=== PATIENT | male | born 1985 | race Caucasian/White ===

== ENCOUNTER 2017-04-22 13:42 | Emergency (ER) | payer BC, OTHER ==
[2017-04-22 14:07] VITALS: TEMP 98.1
[2017-04-22] MEDS ORDERED: SODIUM CHLORIDE 0.9% 1,000 ML IV STA (14:45)
--- NOTE | 2017-04-22 14:56 | ED ---
General Adult HPI - General Chief complaint: Recheck/Abnormal Lab/Rx Stated complaint: memory loss/slurred speech Time Seen by Provider: 04/22/17 14:16 Source: patient Mode of arrival: wheelchair Limitations: no limitations - History of Present Illness Initial comments: 11 years old male came in here for ongoing problems with headaches with inability to concentrate, been more forgetful and to the point that he has strong cry he noticed that he was getting lost only slightly. He is here CARING FOR 0.8 0.3 WERE DRIVING THAT'S WHY HE STOPPED DRIVING. 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 ALL THE SYMPTOMS STARTED BACK IN APRIL 13 WHEN HIS TRIED TO WAKE HIM UP AND HE WAS AWAKE BUT HE CAN MOVE AND HE COULDN'T TALK AND LASTED FOR ABOUT 5 MINUTES 2 DAYS LATER HE WENT TO SEE HIS FAMILY DOCTOR FAMILY DOCTOR ORDERED SOME INVESTIGATIONS AND CONTINUED NEURO EXAM HE FELL. EXAM WAS NORMAL. 2 MORE VISITS TO PRIMARY CARE PHYSICIANS OVER THE NEXT FEW DAYS UNTIL IMAGING WELL BLOOD WORK. HER SYMPTOMS CONTINUED TO GET WORSE OVER THE COURSE OF THE TIME SINCE APRIL 13. HE IS QUITE HEALTHY. DENIES ANY STREET DRUGS SHE DOESN'T DRINK IS NO TRAUMA TO THE HEAD. He has headache no neck stiffness no chest pain or shortness of breath no abdominal pain no weakness of one arm more than the other no weakness of the right side of his vision is fine at this point but he said his vision has been off-and on been blurry - Related Data Home Medications Medication Instructions Recorded Confirmed PARoxetine [Paxil] 20 mg PO QAM 04/22/17 04/22/17 Allergies Allergy/AdvReac Type Severity Reaction Status Date / Time shellfish derived [Shellfish] Allergy Unknown Verified 04/22/17 15:09 Review of Systems ROS Statement: Those systems with pertinent positive or pertinent negative responses have been documented in the HPI. ROS Other: All systems not noted in ROS Statement are negative. Past Medical History Past Medical History: No Reported History History of Any Multi-Drug Resistant Organisms: None Reported Past Surgical History: No Surgical Hx Reported Past Psychological History: No Psychological Hx Reported Smoking Status: Current every day smoker Past Alcohol Use History: None Reported Past Drug Use History: None Reported General Exam - General Exam Comments Initial Comments: General: The patient is awake and alert, in no distress, and does not appear acutely ill. GCS is 15 Skin: Skin is warm and dry and no rashes or lesions are noted. Eye: Pupils are equal, round and reactive to light, extra-ocular movements are intact; there is normal conjunctiva bilaterally. Ears, nose, mouth and throat: There are moist mucous membranes and no oral lesions. Neck: The neck is supple, there is no tenderness or JVD. Cardiovascular: There is a regular rate and rhythm. No murmur, rub or gallop is appreciated. Respiratory: To auscultation bilateral, no wheezing no rhonchi no distress respiratory peres noticed Gastrointestinal: Soft, non-distended, non-tender abdomen without masses or organomegaly noted. There is no rebound or guarding present. Bowel sounds are unremarkable. Back: There is no tenderness to palpation in the midline. There is no obvious deformity. Musculoskeletal: Normal ROM, no tenderness, There is no pedal edema. There is no calf tenderness or swelling. No cords were appreciated. Neurological: CN II-XII intact, Cranial nerves III through XII are intact. There are no obvious motor or sensory deficits. Coordination appears grossly intact. Speech is normal. Psychiatric: Cooperative, appropriate mood & affect, normal judgment. Limitations: no limitations Course Vital Signs 04/22/17 14:02 Temperature 98.1 F Pulse Rate 74 Respiratory 20 Rate Blood Pressure 123/83 O2 Sat by Pulse 98 Oximetry - Reevaluation(s) Reevaluation #1: 04/22/17 17:11 Amylase was reviewed along with his head CT, didn't we did normal range, and recommended he see Dr. Carlos as outpatient for the further evaluation and management of his headache as well as forgetfulness decreased, have paged Dr. Carlos ambulatory to expedite his appointment with the Dr. Carlos 04/22/17 17:[address] Carlos at 1715 he agreed to see him in his office Medical Decision Making - Lab Data Result diagrams: 04/22/17 15:28 04/22/17 15:28 Lab Results 04/22/17 04/22/17 Range/Units 15:28 15:28 WBC 6.4 (3.8-10.6) k/uL RBC 5.25 (4.30-5.90) m/uL Hgb 16.2 (13.0-17.5) gm/dL Hct 46.0 (39.0-53.0) % MCV 87.5 (80.0-100.0) fL MCH 30.9 (25.0-35.0) pg MCHC 35.3 (31.0-37.0) g/dL RDW 12.1 (11.5-15.5) % Plt Count 157 (150-450) k/uL ESR 2 (0-15) mm/hr Sodium 141 (137-145) mmol/L Potassium 4.3 (3.5-5.1) mmol/L Chloride 106 (98-107) mmol/L Carbon Dioxide 24 (22-30) mmol/L Anion Gap 11 mmol/L BUN 18 (9-20) mg/dL Creatinine 1.00 (0.66-1.25) mg/dL Est GFR (MDRD) Af Amer >60 (>60 ml/min/1.73 sqM) Est GFR (MDRD) Non-Af >60 (>60 ml/min/1.73 sqM) Glucose 86 (74-99) mg/dL Calcium 10.0 (8.4-10.2) mg/dL Total Bilirubin 0.6 (0.2-1.3) mg/dL AST 24 (17-59) U/L ALT 41 (21-72) U/L Alkaline Phosphatase 73 (38-126) U/L C-Reactive Protein 15.3 H (<10.0) mg/L Total Protein 7.0 (6.3-8.2) g/dL Albumin 4.3 (3.5-5.0) g/dL Vitamin B12 486 (239-931) pg/mL Folate 10.70 (>2.75) ng/mL TSH 2.660 (0.465-4.680) mIU/L Disposition Clinical Impression: Headache, Forgetfulness Disposition: HOME SELF-CARE Condition: Fair Instructions: Acute Headache (ED) Referrals: Bennie Chavira MD [Primary Care Provider] - 1-2 days Mercedez Carlos MD [STAFF PHYSICIAN] - 1-2 days
--- NOTE | 2017-04-22 15:18 | CT ---
EXAMINATION TYPE: CT brain wo con DATE OF EXAM: 04/22/2017 COMPARISON: NONE HISTORY: Confusion, memory loss, slurred speech, MIN CT DLP: [address] of the brain was performed. The ventricles, basal cisterns and sulci overlying the cerebral convexities demonstrate a normal appe arance. There is no evidence for intracranial hemorrhage or sulcal effacement. No mass effects are seen. Osseous calvarium is intact. If symptoms persist consider MRI as clinically warranted. IMPRESSION: 1. No acute intracranial process is seen at this time.
[2017-04-22 15:51] LABS: CH 30.1; CHCM 34.5; HDW 2.55; HGB 16.2 gm/dL (13.0-17.5); MCH 30.9 pg (25.0-35.0); MCHC 35.3 g/dL (31.0-37.0); MCV 87.5 fL (80.0-100.0); Mean Platelet Volume 8.8; RBC 5.25 m/uL (4.30-5.90); RDW 12.1 % (11.5-15.5); WBC 6.4 k/uL (3.8-10.6)
[2017-04-22 16:02] LABS: ALT 41 U/L (21-72); AST 24 U/L (17-59); Alkaline Phosphatase 73 U/L (38-126); Anion Gap 11 mmol/L; Blood Urea Nitrogen 18 mg/dL (9-20); C Reactive Protein 15.3 mg/L (<10.0); Carbon Dioxide 24 mmol/L (22-30); Chloride 106 mmol/L (98-107); Glucose 86 mg/dL (74-99); Non-African American GFR(MDRD) >60 (>60 ml/min/1.73 sqM); Potassium 4.3 mmol/L (3.5-5.1); Sodium 141 mmol/L (137-145); Total Bilirubin 0.6 mg/dL (0.2-1.3)
[2017-04-22 16:45] LABS: Erythrocyte Sedimentation Rate 2 mm/hr (0-15)
[2017-04-22 17:04] LABS: Vitamin B12 486 pg/mL (239-931)
[2017-04-22 17:26] VITALS: BP 128/82; PULSE 66; RESP 18
== END 2017-04-22 17:26 | disposition home or self-care (01) ==
LOC: EC 13:42
DX: R51 Headache (principal); R41.3 Other amnesia; R40.2412 Glasgow coma scale score 13-15, at arrival to emergency department; F17.200 Nicotine dependence, unspecified, uncomplicated; Z79.899 Other long term (current) drug therapy; Z88.2 Allergy status to sulfonamides
CPT/HCPCS: 36415; 70450; 80053; 82607; 82746; 84443; 85027; 85652; 86140; 96360; 96361; 99284

== ENCOUNTER 2017-05-14 06:30 | Day surgery (SDC) | payer BC ==
[2017-05-12 09:35] VITALS: BMI 27.1
[~2017-05-14 06:30] MED LIST: DEXAMETHASONE SOD PHOSPHATE 10 MG/ML 1 ML VIAL IV ONE; HEPARIN SODIUM,PORCINE 5,000 UNIT/ML 1 ML VIAL SQ ONE; LACTATED RINGERS 1,000 ML IV SCH; LIDOCAINE 1% 20 ML VIAL (10MG/ML) FOR IV START INTRADERMA PRN; ONDANSETRON 4 MG/2 ML VIAL IVP ONE; SCOPOLAMINE 1.5MG/72HR PATCH TRANSDERM ONE; ceFAZolin 2 GM in SODIUM CHLORIDE 0.9% 100 ML IVPB ONE
[2017-05-14 07:04] LABS: Glucose,Whole Blood 95 mg/dL (75-99)
[2017-05-14] MEDS ORDERED: fentaNYL (PF) 50 MCG/ML 2 ML AMP ONE (07:35)
[2017-05-14] MEDS ORDERED: NEOSTIGMINE 1 MG/ML 10 ML VIAL ONE (07:35)
[2017-05-14] MEDS ORDERED: PROPOFOL 10 MG/ML 20 ML VIAL IV ONE (07:35)
[2017-05-14] MEDS ORDERED: LIDOCAINE 1% INJ 10MG/ML (20 ML MDV) ONE (07:35)
[2017-05-14] MEDS ORDERED: MIDAZOLAM 2 MG/2 ML VIAL ONE (07:35)
[2017-05-14] MEDS ORDERED: ROCURONIUM BROMIDE 10 MG/ML 10 ML VIAL IV ONE (07:35)
[2017-05-14] MEDS ORDERED: SUCCINYLCHOLINE CHLORIDE 100 MG/5 ML SYR IV ONE (07:35)
[2017-05-14] MEDS ORDERED: GLYCOPYRROLATE 0.2 MG/ML 2 ML VIAL ONE (07:35)
[2017-05-14] MEDS ORDERED: BUPIVACAINE (PF) 0.25% 30 ML VIAL SQ ONE (08:13)
--- NOTE | 2017-05-14 09:17 | P.OP ---
Date of Procedure: 05/14/17 Preoperative Diagnosis: Right inguinal hernia Postoperative Diagnosis: Right direct inguinal hernia Procedure(s) Performed: Robot asissted laparoscopic right inguinal hernia repair with mesh Implants: bard progrip 12 x 16 cm mesh Anesthesia: ROBYN Surgeon: Anthony Rao Pathology: none sent Condition: stable Disposition: PACU Indications for Procedure: Operative Findings: Right direct inguinal hernia, no inguinal hernia on the left side Description of Procedure: Informed consent was obtained patient and then The patient was brought to the operating room and placed in supine position. General anesthesia with endotracheal intubation was performed as per anesthesia team. Chlorhexidine was used to prep the skin followed by application of sterile drapes . He was placed in the lithotomy positionA timeout was performed to verify correct patient, correct procedure and correct side. Patient was confirmed to receive perioperative IV antibiotics, subcutaneous heparin 5000 units and bilateral SCDs were placed. The left upper quadrant point was identified and a stab incision was made. Veress needle was introduced and placement was confirmed with the help of the drop test. The abdomen was then insufflated to 15 mmHg. Once that was done 5 mm port was introduced into the left upper quadrant using the Optiview technique after which a 12 mm port was placed in the supraumbilical position and a 8 mm port in the right lower quadrant and then after that the another 8 mm port was placed in the left lower quadrant. The robot was then docked with the central camera port and the 2 side working ports. After introducing the appropriate instruments and camera the median umbilical fold was retracted laterally towards the left side a small incision was made at the junction of the umbilical fold and the peritoneum and carried all the way laterally thus creating a small plane in the preperitoneal space. This did this was further dissected with the help of blunt dissection using gentle stroking maneuvers all the way down to Ham ligament medially and laterally we went inferior exposing the vessels inferiorly. The vas was identified and the direct hernia sac was teased off , there was no indirect inguinal hernia once the peritoneal fold had been created with good view of the myopectineal orifice the 12 x 16 Bard Pro bath tester mesh was taken with the lower part above the level of the peritoneal fold was then unfolded so that it covered all the orifices and covered the Ham's ligament medially once again pain positioned perfectly to seal was applied to the inferior edge of the mesh as well as around the Ham's ligament after which the peritoneal flaps were closed with the help of running oh Vioxx suture. Inadvertent holes made in the peritoneum were closed with 2-0 Vicryl. once that was done procedure was completed all incisions and camera was removed and a laparoscope was introduced and the 12 mm port site was closed with the help of a Raul Mayfield the direct vision after which gas was turned off abdomen was thoroughly desufflated skins was closed with the help of 4-0 Monocryl and Dermabond. The patient was extubated and taken to recovery room in stable condition patient tolerated the procedure well there were no complications Plan - Discharge Summary New Discharge Prescriptions: New HYDROcodone/APAP 5-325MG [Sturgeon 5-325] 1 tab PO Q4HR PRN #10 tab PRN Reason: Pain Ibuprofen [Motrin] 800 mg PO Q8H #30 tab No Action tiZANidine HCL [Zanaflex] 2 mg PO BID PRN PRN Reason: neck tension Nicotine 21Mg/24Hr Patch [Habitrol 21Mg/24Hr Patch] 1 each TRANSDERM DAILY Discharge Medication List Nicotine 21Mg/24Hr Patch [Habitrol 21Mg/24Hr Patch] 1 each TRANSDERM DAILY 05/12 [History] tiZANidine HCL [Zanaflex] 2 mg PO BID PRN 05/12/17 [History] HYDROcodone/APAP 5-325MG [Sturgeon 5-325] 1 tab PO Q4HR PRN #10 tab 05/14/17 [Rx] Ibuprofen [Motrin] 800 mg PO Q8H #30 tab 05/14/17 [Rx] Follow up Appointment(s)/Referral(s): Anthony Rao MD [STAFF PHYSICIAN] - 1 Week Activity/Diet/Wound Care/Special Instructions: Regular diet AMbulate as tolerated Use incentive spirometer as directed No driving on pain medications or when having pain May shower in 24 hours No heavy liftin more than 20 lbs for 6 weeks Discharge Disposition: HOME SELF-CARE
[2017-05-14 09:39] VITALS: TEMP 97.7
[2017-05-14] MEDS ORDERED: KETOROLAC 30 MG/ML 1 ML VIAL IVP ONE (10:05)
[2017-05-14] MEDS: HYDROmorphone 1 MG/ML 1 ML SYRINGE IVP PRN ×2 (10:06→10:13)
[2017-05-14 10:31] VITALS: RESP 16
[2017-05-14] MEDS ORDERED: HYDROcodone/APAP 5-325MG 1 EACH TAB PO ONE (11:51)
[2017-05-14 11:57] VITALS: BP 140/94; PULSE 82
== END 2017-05-14 12:28 | disposition home or self-care (01) ==
LOC: OR 06:30
PROVIDERS: ATTEND Surgery
DX: K40.90 Unilateral inguinal hernia, without obstruction or gangrene, not specified as recurrent (principal); F41.9 Anxiety disorder, unspecified; F17.200 Nicotine dependence, unspecified, uncomplicated; Z79.899 Other long term (current) drug therapy; Z79.1 Long term (current) use of non-steroidal anti-inflammatories (NSAID); Z79.52 Long term (current) use of systemic steroids
CPT/HCPCS: 49650; S2900

== ENCOUNTER 2018-03-31 13:50 | Observation (INO) | payer BC ==
[2018-03-31] MEDS ORDERED: SODIUM CHLORIDE 0.9% 1,000 ML IV STA (14:45)
[2018-03-31] MEDS ORDERED: SODIUM CHLORIDE 0.9% 500 ML IV STA (14:45)
[2018-03-31 14:54] LABS: Basophils % (A) 0 %; Eosinophils # (A) 0.1 k/uL (0-0.7); Eosinophils % (A) 1 %; HCT 50.9 % (39.0-53.0); HGB 16.4 gm/dL (13.0-17.5); Lymphocytes # (A) 1.6 k/uL (1.0-4.8); Lymphocytes % (A) 20 %; MCH 27.6 pg (25.0-35.0); MCHC 32.2 g/dL (31.0-37.0); MCV 85.8 fL (80.0-100.0); Mean Platelet Volume 9.1; Monocytes # (A) 0.4 k/uL (0-1.0); Monocytes % (A) 5 %; Neutrophils % (A) 73 %; Platelet Count 172 k/uL (150-450); RBC 5.93 m/uL (4.30-5.90); WBC 8.2 k/uL (3.8-10.6)
[2018-03-31 15:03] LABS: ALT 45 U/L (21-72); AST 25 U/L (17-59); Albumin 4.3 g/dL (3.5-5.0); Alkaline Phosphatase 70 U/L (38-126); Anion Gap 13 mmol/L; Blood Urea Nitrogen 19 mg/dL (9-20); Calcium 9.8 mg/dL (8.4-10.2); Carbon Dioxide 24 mmol/L (22-30); Chloride 104 mmol/L (98-107); Glucose 112 mg/dL (74-99); Potassium 3.8 mmol/L (3.5-5.1); Sodium 141 mmol/L (137-145); Total Bilirubin 0.8 mg/dL (0.2-1.3); Total Protein 7.1 g/dL (6.3-8.2)
[2018-03-31 15:05] LABS: INR 1.1 (<1.2); Partial Thromboplastin Time 24.5 sec (22.0-30.0); Prothrombin Time 10.3 sec (9.0-12.0)
--- NOTE | 2018-03-31 15:06 | ED ---
General Adult HPI - General Chief complaint: Eye Problems Stated complaint: Vision issues sent by ME and Ophth. Time Seen by Provider: 03/31/18 14:27 Source: patient, RN notes reviewed, old records reviewed Mode of arrival: ambulatory Limitations: no limitations - History of Present Illness Initial comments: This is a 32-year-old male to the ER for evaluation today. Patient comes in ER with right peripheral vision loss, left sided headache, occasional headache and neck pain, patient has no significant medical history does not smoke or drink. No trauma no travel history. No sick contacts. Patient denies any recent fevers. Patient has no prior history of similar symptoms. He does have a remote history of some weakness on his left side of his neck and into his arms. That all resolved. Patient states on his history and has had a prior echocardiogram which noted that he had a defect his heart is all unsure and had no follow-up regarding those findings. - Related Data Home Medications Medication Instructions Recorded Confirmed Ibuprofen [Advil] 600 mg PO ONCE 03/31/18 03/31/18 Allergies Allergy/AdvReac Type Severity Reaction Status Date / Time shellfish derived [Shellfish] Allergy Nausea & Verified 03/31/18 14:18 Vomiting Review of Systems ROS Statement: Those systems with pertinent positive or pertinent negative responses have been documented in the HPI. ROS Other: All systems not noted in ROS Statement are negative. Past Medical History Past Medical History: No Reported History Additional Past Medical History / Comment(s): rt inguinal hernia,states "small hole found in my heart on an echocardiogram and being monitored every 6 mos", hypoglycemia History of Any Multi-Drug Resistant Organisms: None Reported Past Surgical History: Hernia Repair Additional Past Surgical History / Comment(s): rt inguinal hernia repair,lt testes descended Past Anesthesia/Blood Transfusion Reactions: No Reported Reaction Additional Past Anesthesia/Blood Transfusion Reaction / Comment(s): no hx blood transfusion Past Psychological History: Anxiety Smoking Status: Former smoker Past Alcohol Use History: None Reported Past Drug Use History: None Reported - Past Family History Mother Family Medical History: CVA/TIA Father Family Medical History: CVA/TIA General Exam Limitations: no limitations General appearance: alert, in no apparent distress Head exam: Present: atraumatic, normocephalic, normal inspection Eye exam: Present: normal appearance, PERRL, EOMI. Absent: scleral icterus, conjunctival injection, periorbital swelling ENT exam: Present: normal exam, mucous membranes moist Neck exam: Present: normal inspection. Absent: tenderness, meningismus, lymphadenopathy Respiratory exam: Present: normal lung sounds bilaterally. Absent: respiratory distress, wheezes, rales, rhonchi, stridor Cardiovascular Exam: Present: regular rate, normal rhythm, normal heart sounds. Absent: systolic murmur, diastolic murmur, rubs, gallop, clicks GI/Abdominal exam: Present: soft, normal bowel sounds. Absent: distended, tenderness, guarding, rebound, rigid Extremities exam: Present: normal inspection, full ROM, normal capillary refill. Absent: tenderness, pedal edema, joint swelling, calf tenderness Back exam: Present: normal inspection Neurological exam: Present: alert, oriented X3, CN II-XII intact Psychiatric exam: Present: normal affect, normal mood Skin exam: Present: warm, dry, intact, normal color. Absent: rash Course Vital Signs 03/31/18 03/31/18 03/31/18 14:01 15:43 16:48 Temperature 97.9 F Pulse Rate 71 87 74 Respiratory 16 18 16 Rate Blood Pressure 153/92 159/73 142/78 O2 Sat by Pulse 96 97 97 Oximetry - Reevaluation(s) Reevaluation #1: 03/31/18 17:04 Patient remains w peripheral vision loss EKG Findings - EKG Comments: EKG Findings:: EKG shows normal sinus rhythm rate of 67, VA 180, QRS 90, QTc 407 Medical Decision Making - Medical Decision Making 32 male the ER with signs and symptoms of stroke, patient sent in by collections officer after multiple evaluation regarding peripheral visual loss right eye. 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 chart, patient to be admitted for neurological evaluation - Lab Data Result diagrams: 03/31/18 14:40 03/31/18 14:40 Lab Results 03/31/18 03/31/18 03/31/18 Range/Units 14:40 14:40 14:40 WBC 8.2 (3.8-10.6) k/uL RBC 5.93 H (4.30-5.90) m/uL Hgb 16.4 (13.0-17.5) gm/dL Hct 50.9 (39.0-53.0) % MCV 85.8 (80.0-100.0) fL MCH 27.6 (25.0-35.0) pg MCHC 32.2 (31.0-37.0) g/dL RDW 13.0 (11.5-15.5) % Plt Count 172 (150-450) k/uL Neutrophils % 73 % Lymphocytes % 20 % Monocytes % 5 % Eosinophils % 1 % Basophils % 0 % Neutrophils # 6.0 (1.3-7.7) k/uL Lymphocytes # 1.6 (1.0-4.8) k/uL Monocytes # 0.4 (0-1.0) k/uL Eosinophils # 0.1 (0-0.7) k/uL Basophils # 0.0 (0-0.2) k/uL ESR (0-15) mm/hr PT (9.0-12.0) sec INR (<1.2) APTT (22.0-30.0) sec Fibrinogen (200-500) mg/dL Sodium 141 (137-145) mmol/L Potassium 3.8 (3.5-5.1) mmol/L Chloride 104 (98-107) mmol/L Carbon Dioxide 24 (22-30) mmol/L Anion Gap 13 mmol/L BUN 19 (9-20) mg/dL Creatinine 1.07 (0.66-1.25) mg/dL Est GFR (CKD-EPI)AfAm >90 (>60 ml/min/1.73 sqM) Est GFR (CKD-EPI)NonAf >90 (>60 ml/min/1.73 sqM) Glucose 112 H (74-99) mg/dL Calcium 9.8 (8.4-10.2) mg/dL Total Bilirubin 0.8 (0.2-1.3) mg/dL AST 25 (17-59) U/L ALT 45 (21-72) U/L Alkaline Phosphatase 70 (38-126) U/L Total Creatine Kinase 179 H (55-170) U/L CK-MB (CK-2) 2.0 (0.0-2.4) ng/mL CK-MB (CK-2) Rel Index 1.1 Troponin I <0.012 (0.000-0.034) ng/mL C-Reactive Protein (<10.0) mg/L Total Protein 7.1 (6.3-8.2) g/dL Albumin 4.3 (3.5-5.0) g/dL Urine Color Urine Appearance (Clear) Urine pH (5.0-8.0) Ur Specific Cutler (1.001-1.035) Urine Protein (Negative) Urine Glucose (UA) (Negative) Urine Ketones (Negative) Urine Blood (Negative) Urine Nitrite (Negative) Urine Bilirubin (Negative) Urine Urobilinogen (<2.0) mg/dL Ur Leukocyte Esterase (Negative) Urine Opiates Screen (NotDetected) Ur Oxycodone Screen (NotDetected) Urine Methadone Screen (NotDetected) Ur Propoxyphene Screen (NotDetected) Ur Barbiturates Screen (NotDetected) U Tricyclic Antidepress (NotDetected) Ur Phencyclidine Scrn (NotDetected) Ur Amphetamines Screen (NotDetected) U Methamphetamines Scrn (NotDetected) U Benzodiazepines Scrn (NotDetected) Urine Cocaine Screen (NotDetected) U Marijuana (THC) Screen (NotDetected) 03/31/18 03/31/18 03/31/18 Range/Units 14:40 14:40 14:40 WBC (3.8-10.6) k/uL RBC (4.30-5.90) m/uL Hgb (13.0-17.5) gm/dL Hct (39.0-53.0) % MCV (80.0-100.0) fL MCH (25.0-35.0) pg MCHC (31.0-37.0) g/dL RDW (11.5-15.5) % Plt Count (150-450) k/uL Neutrophils % % Lymphocytes % % Monocytes % % Eosinophils % % Basophils % % Neutrophils # (1.3-7.7) k/uL Lymphocytes # (1.0-4.8) k/uL Monocytes # (0-1.0) k/uL Eosinophils # (0-0.7) k/uL Basophils # (0-0.2) k/uL ESR 2 (0-15) mm/hr PT 10.3 (9.0-12.0) sec INR 1.1 (<1.2) APTT 24.5 (22.0-30.0) sec Fibrinogen (200-500) mg/dL Sodium (137-145) mmol/L Potassium (3.5-5.1) mmol/L Chloride (98-107) mmol/L Carbon Dioxide (22-30) mmol/L Anion Gap mmol/L BUN (9-20) mg/dL Creatinine (0.66-1.25) mg/dL Est GFR (CKD-EPI)AfAm (>60 ml/min/1.73 sqM) Est GFR (CKD-EPI)NonAf (>60 ml/min/1.73 sqM) Glucose (74-99) mg/dL Calcium (8.4-10.2) mg/dL Total Bilirubin (0.2-1.3) mg/dL AST (17-59) U/L ALT (21-72) U/L Alkaline Phosphatase (38-126) U/L Total Creatine Kinase (55-170) U/L CK-MB (CK-2) (0.0-2.4) ng/mL CK-MB (CK-2) Rel Index Troponin I (0.000-0.034) ng/mL C-Reactive Protein 5.5 (<10.0) mg/L Total Protein (6.3-8.2) g/dL Albumin (3.5-5.0) g/dL Urine Color Urine Appearance (Clear) Urine pH (5.0-8.0) Ur Specific Cutler (1.001-1.035) Urine Protein (Negative) Urine Glucose (UA) (Negative) Urine Ketones (Negative) Urine Blood (Negative) Urine Nitrite (Negative) Urine Bilirubin (Negative) Urine Urobilinogen (<2.0) mg/dL Ur Leukocyte Esterase (Negative) Urine Opiates Screen (NotDetected) Ur Oxycodone Screen (NotDetected) Urine Methadone Screen (NotDetected) Ur Propoxyphene Screen (NotDetected) Ur Barbiturates Screen (NotDetected) U Tricyclic Antidepress (NotDetected) Ur Phencyclidine Scrn (NotDetected) Ur Amphetamines Screen (NotDetected) U Methamphetamines Scrn (NotDetected) U Benzodiazepines Scrn (NotDetected) Urine Cocaine Screen (NotDetected) U Marijuana (THC) Screen (NotDetected) 03/31/18 03/31/18 Range/Units 14:40 15:02 WBC (3.8-10.6) k/uL RBC (4.30-5.90) m/uL Hgb (13.0-17.5) gm/dL Hct (39.0-53.0) % MCV (80.0-100.0) fL MCH (25.0-35.0) pg MCHC (31.0-37.0) g/dL RDW (11.5-15.5) % Plt Count (150-450) k/uL Neutrophils % % Lymphocytes % % Monocytes % % Eosinophils % % Basophils % % Neutrophils # (1.3-7.7) k/uL Lymphocytes # (1.0-4.8) k/uL Monocytes # (0-1.0) k/uL Eosinophils # (0-0.7) k/uL Basophils # (0-0.2) k/uL ESR (0-15) mm/hr PT (9.0-12.0) sec INR (<1.2) APTT (22.0-30.0) sec Fibrinogen 312 (200-500) mg/dL Sodium (137-145) mmol/L Potassium (3.5-5.1) mmol/L Chloride (98-107) mmol/L Carbon Dioxide (22-30) mmol/L Anion Gap mmol/L BUN (9-20) mg/dL Creatinine (0.66-1.25) mg/dL Est GFR (CKD-EPI)AfAm (>60 ml/min/1.73 sqM) Est GFR (CKD-EPI)NonAf (>60 ml/min/1.73 sqM) Glucose (74-99) mg/dL Calcium (8.4-10.2) mg/dL Total Bilirubin (0.2-1.3) mg/dL AST (17-59) U/L ALT (21-72) U/L Alkaline Phosphatase (38-126) U/L Total Creatine Kinase (55-170) U/L CK-MB (CK-2) (0.0-2.4) ng/mL CK-MB (CK-2) Rel Index Troponin I (0.000-0.034) ng/mL C-Reactive Protein (<10.0) mg/L Total Protein (6.3-8.2) g/dL Albumin (3.5-5.0) g/dL Urine Color Yellow Urine Appearance Clear (Clear) Urine pH 5.5 (5.0-8.0) Ur Specific Cutler 1.015 (1.001-1.035) Urine Protein Negative (Negative) Urine Glucose (UA) Negative (Negative) Urine Ketones Negative (Negative) Urine Blood Negative (Negative) Urine Nitrite Negative (Negative) Urine Bilirubin Negative (Negative) Urine Urobilinogen <2.0 (<2.0) mg/dL Ur Leukocyte Esterase Negative (Negative) Urine Opiates Screen Not Detected (NotDetected) Ur Oxycodone Screen Not Detected (NotDetected) Urine Methadone Screen Not Detected (NotDetected) Ur Propoxyphene Screen Not Detected (NotDetected) Ur Barbiturates Screen Not Detected (NotDetected) U Tricyclic Antidepress Not Detected (NotDetected) Ur Phencyclidine Scrn Not Detected (NotDetected) Ur Amphetamines Screen Not Detected (NotDetected) U Methamphetamines Scrn Not Detected (NotDetected) U Benzodiazepines Scrn Not Detected (NotDetected) Urine Cocaine Screen Not Detected (NotDetected) U Marijuana (THC) Screen Not Detected (NotDetected) - Radiology Data Radiology results: report reviewed (CT brain CT head and neck negative, chest x- ray negative), image reviewed Disposition Clinical Impression: CVA (cerebral vascular accident) Disposition: ADMITTED IP TO THIS [facility] Condition: Fair Is patient prescribed a controlled substance at d/c from ED?: No Referrals: Bennie Chavira MD [Primary Care Provider] - 1-2 days
[2018-03-31 15:07] LABS: Creatine Kinase 179 U/L (55-170)
[2018-03-31 15:14] LABS: Appearance,Urine Clear (Clear); Bilirubin,Urine Negative (Negative); Blood,Urine Negative (Negative); Color,Urine Yellow; Glucose,Urine (UA) Negative (Negative); Ketones,Urine Negative (Negative); Leukocyte Esterase,Urine Negative (Negative); Nitrite,Urine Negative (Negative); PH, Urine 5.5 (5.0-8.0); Protein,Urine Negative (Negative); Specific Gravity,Urine 1.015 (1.001-1.035); Urobilinogen,Urine <2.0 mg/dL (<2.0)
[2018-03-31 15:20] LABS: Troponin I <0.012 ng/mL (0.000-0.034)
[2018-03-31 15:26] LABS: Amphetamine Screen,Urine Not Detected (NotDetected); Barbiturate Screen,Urine Not Detected (NotDetected); Benzodiazepines Screen,Urine Not Detected (NotDetected); Cocaine Screen,Urine Not Detected (NotDetected); Methadone Screen, Urine Not Detected (NotDetected); Opiate Screen,Urine Not Detected (NotDetected); Phencyclidine Screen,Urine Not Detected (NotDetected); Tricyclic Antidepressant,Urine Not Detected (NotDetected); Urn Cannabinoid Scrn Not Detected (NotDetected)
[2018-03-31 15:27] LABS: Oxycodone Screen, Urine Not Detected (NotDetected)
--- NOTE | 2018-03-31 16:18 | CT ---
EXAMINATION TYPE: CT brain wo con for TPA DATE OF EXAM: 03/31/2018 COMPARISON: 04/22/2017 INDICATION: Right eye vision changes DLP: 1098 mGycm, Automated exposure control for dose reduction was used. CONTRAST: None CT of the brain is performed utilizing 3 mm thick sections through the posterior fossa and 3 mm thick sections through the remaining calvarium. Study is performed within 24 hours of arrival to the hosp ital. No abnormal hyperdensity is present to suggest an acute intracranial hemorrhage. No mass lesion is evident. No acute infarcts are evident. Ventricles and sulci are appropriate for the patient age. Paranasal sinuses and mastoid air cells within the [id number] are clear. IMPRESSIONS: 1. Normal CT Brain
--- NOTE | 2018-03-31 16:18 | XR ---
EXAMINATION TYPE: XR chest 2V DATE OF EXAM: 03/31/2018 COMPARISON: NONE INDICATION: Altered mental status blurred vision TECHNIQUE: Frontal and lateral views of the chest are obtained. FINDINGS: The heart size is normal. The pulmonary vasculature is normal. The lungs are clear. IMPRESSION: 1. No acute pulmonary process.
--- NOTE | 2018-03-31 16:42 | CT ---
EXAMINATION TYPE: CT angio head neck DATE OF EXAM: 03/31/2018 HISTORY: Neural deficits right eye COMPARISON: NONE CT DLP: 465.41 mGycm. Automated Exposure Control for Dose Reduction was Utilized. TECHNIQUE: CTA scan of the neck is performed. Patient injected with 65 mL of Isovue 370, axial image s are obtained, coronal and sagittal reformatted images are reviewed. Three-D reconstructed images ar e created on an independent workstation by the technologist and reviewed. FINDINGS: Carotid/Vascular Structures: [place]: Internal carotid arteries bifurcate into A1 and M1 seg ments. Small anterior communicating artery appears to be patent. The middle cerebral artery branches appear normal. Left posterior communicating artery is patent. Right posterior communicating artery is patent and may terminate in the right posterior cerebral artery. Basilar artery is normal. Bilateral carotid bifurcations appear normal. No focal stenosis is evident. Internal carotid arteries appear unremarkable. Three-D reconstructed rotating images are reviewed. IMPRESSION: 1. Normal bilateral carotid bifurcations without significant flow-limiting stenosis. 2. [place] appears within normal limits.
[2018-03-31] MEDS ORDERED: ASPIRIN 325 MG TAB PO STA (17:02)
[2018-03-31] MEDS: SODIUM CHLORIDE 0.9% 1,000 ML IV SCH (20:31)
--- NOTE | 2018-04-01 05:17 | HP ---
HISTORY AND PHYSICAL DATE OF ADMISSION AND SERVICE: 03/31/2018 PRESENTING COMPLAINT: Change in vision. HISTORY OF PRESENTING COMPLAINT: A very pleasant 32-year-old patient who follows with Dr. Chavira. Today while working on the computer screen, he noticed that he is not able to see things on the right side. He had to move his head. The words were missing then would come back then he noticed that his vision on the right side was lacking. He could not see people on the right side. He developed sharp pain on the left side of the head and called up his . They took him down to [facility] from where he was sent to an eye doctor who did a full eye exam. Nothing was fallen wrong in the peripheral examination including a funduscopy examination and patient was then sent down to the ER for a possible stroke. In the ER, the patient did undergo a CT scan of the brain and CT angio. Seen by Dr. Nagel and then patient was admitted to the hospital being on aspirin. The patient's is present. Since the presentation some of the vision actually has improved, a little bit of haziness on the right side of the vision. The patient did have slurring of the speech earlier, which is nearly back to the normal. The patient noticed that for the last 2 months, the patient is becoming very tired and comes home he nods off very easily. Has not lost any weight. The patient he thinks he sleeps okay. About a year ago, the patient had a similar episode and I see one documented in the chart back in April of last year. At that time he had presented with a headache and that time patient had some neurological symptoms. He did go down to [place] and he was told there was a hole in the heart and they ascribed him to anxiety, depression. Patient did not felt he was any anxiety, depression. Today, patient has some slight facial asymmetry, very subtle. Otherwise no weakness in the arms or legs. No trouble swallowing. REVIEW OF SYSTEMS: CONSTITUTIONAL: None. HEENT: As above. RESPIRATORY: None. CARDIOVASCULAR: None. GASTROINTESTINAL: None. GENITOURINARY: None. MUSCULOSKELETAL: None. DERMATOLOGICAL: None. HEMATOLOGIC: None. LYMPHATICS: None. PSYCHIATRY: None. NEUROLOGICAL: As above. PAST MEDICAL HISTORY: Hole in the heart. PAST SURGICAL HISTORY: Hernia repair, right inguinal hernia repair, left testes undescended. 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 Patient smoked for about 23 years, stopped about a year ago. . No alcohol or smoking. FAMILY HISTORY: Grandfather had a stroke. HOME MEDICATIONS: Advil. ALLERGIES: SHELLFISH. PHYSICAL EXAMINATION: On examination, temperature 97.9, pulse 71, respirations 16, blood pressure 153/92, pulse ox 96% on room air. GENERAL APPEARANCE: Well built, BMI 32.9, sitting up, not in distress. EYES: Pupils equal. Conjunctivae normal. HEENT: External appearance of nose and ears normal. Oral cavity normal. NECK: JVD not raised. Mass not palpable. RESPIRATORY: Effort . Lungs are clear. CARDIOVASCULAR: First and second sounds normal, no edema. ABDOMEN: Soft, nontender. Liver and spleen not palpable. LYMPHATIC: No lymph node palpable in the neck or axillae. PSYCHIATRY: Alert and oriented x3. Mood and affect normal. NEUROLOGICAL: Slight facial asymmetry most likely to the left. Otherwise field of vision looks normal and power and sensation grossly intact. INVESTIGATIONS: White count 8.2, hemoglobin 16.4. Potassium 3.8. ASSESSMENT: 1. This patient presents with a mixture of symptoms including loss of vision on the right side of the field though a lot of it has come back. Severe headache on the left side. The patient has some slight facial asymmetry. The patient had a similar episode about a year ago and he was told that he has a hole in the heart. 2. Obesity, body mass index 32.9. PLAN: At this point, we will go ahead and do an MRI of the brain with and without contrast and also an MR angiography of the neck and the brain. We will check a lipid profile. We will also order a ROEL given his prior presentation to rule out any thrombus. The patient is also on telemetry to rule out any arrhythmia. The patient's EKG has some nonspecific findings. Care was discussed with the patient and . Questions were answered. Consultations with Neurology and Cardiology for ROEL . The patient is also on aspirin and will be started on Lipitor. MMODL / IJN: [id number] /
[2018-04-01] MEDS ORDERED: ATORVASTATIN 40 MG TAB PO SCH (09:00)
[2018-04-01] MEDS: ENOXAPARIN 40 MG/0.4 ML SYRINGE SQ SCH (09:50)
--- NOTE | 2018-04-01 10:09 | MR ---
EXAMINATION TYPE: MR brain wo/w mraneck wo/wcon, MR angio head wo con DATE OF EXAM: 04/01/2018 COMPARISON: CT brain and CT angiogram of the neck 03/31/2018 HISTORY: Possible stroke with neurological deficits, right eye vision changes TECHNIQUE: Multiplanar, multisequence images of the brain and brainstem is performed without and with IV contras t, utilizing 10 mL intravenous Gadavist . [id number] and postcontrast images obtained through the neck and three-dimensional post processing performed. [id number] imaging obtained through the ci rcle of [place] and post processing performed. FINDINGS: Diffusion weighted images demonstrate no evidence of a recent infarct or other diffusion ab normality. There is no extra-axial fluid collection or significant white matter signal abnormality, punctate focus of hyperintensity on inversion recovery and T2-weighted sequences in the right frontal white matter on axial image 16 noted of questionable clinical significance. The ventricular system and cisternal spaces are normal in size and appearance. The brain volume is age appropriate. Midline structures demonstrate normal morphology. The craniocervical junction appears within normal limits. Post contrast images demonstrate no abnormal enhancement. The dural venous sinuses appear pa tent. The visualized sinuses are clear and the globes are intact. The left and right common carotid, internal and external carotid arteries are patent. Vertebral arter ies are patent, left vertebral artery is dominant. There is no evidence stenosis, dissection, or embo dexter. Thoracic aorta is patent. Left and right subclavian arteries are patent. Innominate artery widel y patent. [place] of [place] MRA shows no embolus or dissection. No evident aneurysm or vascular malformation. An terior posterior circulation is intact. IMPRESSION: Cerebral vascular accident is not evident. Patent neck arterial vasculature. Normal circl e of [place] MRA.
--- NOTE | 2018-04-01 10:20 | P.CRDCN ---
History of Present Illness Consult date: 04/01/18 Requesting physician: Mansoor King Reason for Consult (text): TIA Chief complaint: Visual disturbance in the right eye History of present illness: This is a 32-year-old gentleman with no prior documented history of hypertension, no diabetes, no hyperlipidemia, he is a nonsmoker, rare EtOH. He presented to the hospital with symptoms of right eye visual disturbance. He states that he was working on his computer, he was looking at a specific program when all of a sudden he could not see out of his right eye, he states that he had no peripheral vision out of that eye either. According to the , he also was noted to have mild slurring of speech. He states that he got up to drink a glass of water to see if the symptoms would improve, however because he did not he came to the emergency room for further evaluation. Shortly after the symptoms started, patient did complain of a headache, no weakness on either side of his body. Patients symptoms this morning, his symptoms seem to have almost completely resolved. According to the patient, approximately one year ago he had symptoms different than these but suggestive of possible stroke, at which time he went to [facility] in [place] he does state that he had an echocardiogram with Doppler study performed at that time which did reveal a hole in his heart. He was told at that time that the symptoms were likely secondary to anxiety and depression. EKG on arrival here showed a normal sinus rhythm with nonspecific ST-T wave changes. CAT scan of the brain is normal. Chest x-ray no acute pulmonary process. CT angiogram of the head and neck revealed normal bilateral carotid bifurcations without any significant stenosis. Sodium 141, potassium 3.8, BUN 19, creatinine 1.07. [place] of [place] appears within normal limits. MRA and MRI of the brain was performed which is yet pending. Blood pressure 118/80 with a heart rate in the 70s, 98% on room air. White blood cell count 8.2, hemoglobin 16.4, platelet count 172. Troponin 0.012. TSH 1.6 Past Medical History Past Medical History: No Reported History Additional Past Medical History / Comment(s): rt inguinal hernia,states "small hole found in my heart on an echocardiogram and being monitored every 6 mos", c/ o increased heart burn last few months hypoglycemia, kidney stones,pt stated in 2017 had episode during the night where he had pain behind rt ear up to holiness felt like needle being jammed in his head and he could'nt move his body except rt arm in nuding motion to wake his . that last approx 30 min.after symptoms subsided he then developed slurred speech and memory problems that lasted few months.when he did seek help he was told it was anxiety/stress/ depression History of Any Multi-Drug Resistant Organisms: None Reported Past Surgical History: Hernia Repair Additional Past Surgical History / Comment(s): rt inguinal hernia repair,lt testes descended , as also had hernia repiar Past Anesthesia/Blood Transfusion Reactions: No Reported Reaction Additional Past Anesthesia/Blood Transfusion Reaction / Comment(s): no hx blood transfusion Smoking Status: Former smoker - Past Family History Mother Family Medical History: CVA/TIA Additional Family Medical History / Comment(s): grandfather had stroke Father Family Medical History: CVA/TIA Additional Family Medical History / Comment(s): grandfather had stroke Medications and Allergies Home Medications Medication Instructions Recorded Confirmed Type Ibuprofen [Advil] 600 mg PO ONCE 03/31/18 03/31/18 History Allergies Allergy/AdvReac Type Severity Reaction Status Date / Time shellfish derived [Shellfish] Allergy Nausea & Verified 03/31/18 14:18 Vomiting Physical Exam Vitals: Vital Signs Temp Pulse Pulse Pulse Resp BP BP 04/01/18 04:00 97.4 F L 70 16 118/80 04/01/18 00:00 97.9 F 60 14 111/70 03/31/18 20:00 98.1 F 72 16 124/79 03/31/18 18:53 97.8 F 75 18 150/89 03/31/18 18:03 98.2 F 68 18 153/76 03/31/18 16:48 74 16 142/78 03/31/18 15:43 87 18 159/73 03/31/18 14:01 97.9 F 71 16 153/92 Pulse Ox 04/01/18 04:00 98 04/01/18 00:00 96 03/31/18 20:00 96 03/31/18 18:53 97 03/31/18 18:03 100 03/31/18 16:48 97 03/31/18 15:43 97 03/31/18 14:01 96 Intake and Output 03/31/18 04/01/18 04/01/18 22:59 06:59 14:59 Intake Total 800 Balance 800 Intake: Intake, IV Titration 800 Amount Sodium Chloride 0.9% 1, 800 000 ml @ 100 mls/hr IV . Q10H [facility] Rx#:[id number] Other: # Voids 1 Weight 105.6 kg PHYSICAL EXAMINATION: GENERAL: 32-year-old gentleman in no acute distress at the time of my examination HEENT: Head is atraumatic, normocephalic. Pupils equal, round. Sclera anicteric. Conjunctiva are clear. Mucous membranes of the mouth are moist. Neck is supple. There is no elevated jugular venous pressure.] bruit is heard. HEART EXAMINATION: Heart S1, S2 normal. No murmur or gallop heard. CHEST EXAMINATION: Lungs are clear to auscultation and precussion. No chest wall tenderness is noted on palpation or with deep breathing. ABDOMEN: Soft, nontender. Bowel sounds are heard. No organomegaly noted. EXTREMITIES: 2+ peripheral pulses with no evidence of peripheral edema and no calf tenderness noted. NEUROLOGIC patient is awake, alert and oriented -3. . Results 03/31/18 14:40 03/31/18 14:40 Cardiac Enzymes 03/31/18 03/31/18 03/31/18 Range/Units 14:40 14:40 14:40 WBC 8.2 (3.8-10.6) k/uL RBC 5.93 H (4.30-5.90) m/uL Hgb 16.4 (13.0-17.5) gm/dL Hct 50.9 (39.0-53.0) % MCV 85.8 (80.0-100.0) fL MCH 27.6 (25.0-35.0) pg MCHC 32.2 (31.0-37.0) g/dL RDW 13.0 (11.5-15.5) % Plt Count 172 (150-450) k/uL Neutrophils % 73 % Lymphocytes % 20 % Monocytes % 5 % Eosinophils % 1 % Basophils % 0 % Neutrophils # 6.0 (1.3-7.7) k/uL Lymphocytes # 1.6 (1.0-4.8) k/uL Monocytes # 0.4 (0-1.0) k/uL Eosinophils # 0.1 (0-0.7) k/uL Basophils # 0.0 (0-0.2) k/uL ESR (0-15) mm/hr PT (9.0-12.0) sec INR (<1.2) APTT (22.0-30.0) sec Fibrinogen (200-500) mg/dL Sodium 141 (137-145) mmol/L Potassium 3.8 (3.5-5.1) mmol/L Chloride 104 (98-107) mmol/L Carbon Dioxide 24 (22-30) mmol/L Anion Gap 13 mmol/L BUN 19 (9-20) mg/dL Creatinine 1.07 (0.66-1.25) mg/dL Est GFR (CKD-EPI)AfAm >90 (>60 ml/min/1.73 sqM) Est GFR (CKD-EPI)NonAf >90 (>60 ml/min/1.73 sqM) Glucose 112 H (74-99) mg/dL Calcium 9.8 (8.4-10.2) mg/dL Total Bilirubin 0.8 (0.2-1.3) mg/dL AST 25 (17-59) U/L ALT 45 (21-72) U/L Alkaline Phosphatase 70 (38-126) U/L Total Creatine Kinase 179 H (55-170) U/L CK-MB (CK-2) 2.0 (0.0-2.4) ng/mL CK-MB (CK-2) Rel Index 1.1 Troponin I <0.012 (0.000-0.034) ng/mL C-Reactive Protein (<10.0) mg/L Total Protein 7.1 (6.3-8.2) g/dL Albumin 4.3 (3.5-5.0) g/dL Urine Color Urine Appearance (Clear) Urine pH (5.0-8.0) Ur Specific [place] (1.001-1.035) Urine Protein (Negative) Urine Glucose (UA) (Negative) Urine Ketones (Negative) Urine Blood (Negative) Urine Nitrite (Negative) Urine Bilirubin (Negative) Urine Urobilinogen (<2.0) mg/dL Ur Leukocyte Esterase (Negative) Urine Opiates Screen (NotDetected) Ur Oxycodone Screen (NotDetected) Urine Methadone Screen (NotDetected) Ur Propoxyphene Screen (NotDetected) Ur Barbiturates Screen (NotDetected) U Tricyclic Antidepress (NotDetected) Ur Phencyclidine Scrn (NotDetected) Ur Amphetamines Screen (NotDetected) U Methamphetamines Scrn (NotDetected) U Benzodiazepines Scrn (NotDetected) Urine Cocaine Screen (NotDetected) U Marijuana (THC) Screen (NotDetected) 03/31/18 03/31/18 03/31/18 Range/Units 14:40 14:40 14:40 WBC (3.8-10.6) k/uL RBC (4.30-5.90) m/uL Hgb (13.0-17.5) gm/dL Hct (39.0-53.0) % MCV (80.0-100.0) fL MCH (25.0-35.0) pg MCHC (31.0-37.0) g/dL RDW (11.5-15.5) % Plt Count (150-450) k/uL Neutrophils % % Lymphocytes % % Monocytes % % Eosinophils % % Basophils % % Neutrophils # (1.3-7.7) k/uL Lymphocytes # (1.0-4.8) k/uL Monocytes # (0-1.0) k/uL Eosinophils # (0-0.7) k/uL Basophils # (0-0.2) k/uL ESR 2 (0-15) mm/hr PT 10.3 (9.0-12.0) sec INR 1.1 (<1.2) APTT 24.5 (22.0-30.0) sec Fibrinogen (200-500) mg/dL Sodium (137-145) mmol/L Potassium (3.5-5.1) mmol/L Chloride (98-107) mmol/L Carbon Dioxide (22-30) mmol/L Anion Gap mmol/L BUN (9-20) mg/dL Creatinine (0.66-1.25) mg/dL Est GFR (CKD-EPI)AfAm (>60 ml/min/1.73 sqM) Est GFR (CKD-EPI)NonAf (>60 ml/min/1.73 sqM) Glucose (74-99) mg/dL Calcium (8.4-10.2) mg/dL Total Bilirubin (0.2-1.3) mg/dL AST (17-59) U/L ALT (21-72) U/L Alkaline Phosphatase (38-126) U/L Total Creatine Kinase (55-170) U/L CK-MB (CK-2) (0.0-2.4) ng/mL CK-MB (CK-2) Rel Index Troponin I (0.000-0.034) ng/mL C-Reactive Protein 5.5 (<10.0) mg/L Total Protein (6.3-8.2) g/dL Albumin (3.5-5.0) g/dL Urine Color Urine Appearance (Clear) Urine pH (5.0-8.0) Ur Specific [place] (1.001-1.035) Urine Protein (Negative) Urine Glucose (UA) (Negative) Urine Ketones (Negative) Urine Blood (Negative) Urine Nitrite (Negative) Urine Bilirubin (Negative) Urine Urobilinogen (<2.0) mg/dL Ur Leukocyte Esterase (Negative) Urine Opiates Screen (NotDetected) Ur Oxycodone Screen (NotDetected) Urine Methadone Screen (NotDetected) Ur Propoxyphene Screen (NotDetected) Ur Barbiturates Screen (NotDetected) U Tricyclic Antidepress (NotDetected) Ur Phencyclidine Scrn (NotDetected) Ur Amphetamines Screen (NotDetected) U Methamphetamines Scrn (NotDetected) U Benzodiazepines Scrn (NotDetected) Urine Cocaine Screen (NotDetected) U Marijuana (THC) Screen (NotDetected) 03/31/18 03/31/18 Range/Units 14:40 15:02 WBC (3.8-10.6) k/uL RBC (4.30-5.90) m/uL Hgb (13.0-17.5) gm/dL Hct (39.0-53.0) % MCV (80.0-100.0) fL MCH (25.0-35.0) pg MCHC (31.0-37.0) g/dL RDW (11.5-15.5) % Plt Count (150-450) k/uL Neutrophils % % Lymphocytes % % Monocytes % % Eosinophils % % Basophils % % Neutrophils # (1.3-7.7) k/uL Lymphocytes # (1.0-4.8) k/uL Monocytes # (0-1.0) k/uL Eosinophils # (0-0.7) k/uL Basophils # (0-0.2) k/uL ESR (0-15) mm/hr PT (9.0-12.0) sec INR (<1.2) APTT (22.0-30.0) sec Fibrinogen 312 (200-500) mg/dL Sodium (137-145) mmol/L Potassium (3.5-5.1) mmol/L Chloride (98-107) mmol/L Carbon Dioxide (22-30) mmol/L Anion Gap mmol/L BUN (9-20) mg/dL Creatinine (0.66-1.25) mg/dL Est GFR (CKD-EPI)AfAm (>60 ml/min/1.73 sqM) Est GFR (CKD-EPI)NonAf (>60 ml/min/1.73 sqM) Glucose (74-99) mg/dL Calcium (8.4-10.2) mg/dL Total Bilirubin (0.2-1.3) mg/dL AST (17-59) U/L ALT (21-72) U/L Alkaline Phosphatase (38-126) U/L Total Creatine Kinase (55-170) U/L CK-MB (CK-2) (0.0-2.4) ng/mL CK-MB (CK-2) Rel Index Troponin I (0.000-0.034) ng/mL C-Reactive Protein (<10.0) mg/L Total Protein (6.3-8.2) g/dL Albumin (3.5-5.0) g/dL Urine Color Yellow Urine Appearance Clear (Clear) Urine pH 5.5 (5.0-8.0) Ur Specific [place] 1.015 (1.001-1.035) Urine Protein Negative (Negative) Urine Glucose (UA) Negative (Negative) Urine Ketones Negative (Negative) Urine Blood Negative (Negative) Urine Nitrite Negative (Negative) Urine Bilirubin Negative (Negative) Urine Urobilinogen <2.0 (<2.0) mg/dL Ur Leukocyte Esterase Negative (Negative) Urine Opiates Screen Not Detected (NotDetected) Ur Oxycodone Screen Not Detected (NotDetected) Urine Methadone Screen Not Detected (NotDetected) Ur Propoxyphene Screen Not Detected (NotDetected) Ur Barbiturates Screen Not Detected (NotDetected) U Tricyclic Antidepress Not Detected (NotDetected) Ur Phencyclidine Scrn Not Detected (NotDetected) Ur Amphetamines Screen Not Detected (NotDetected) U Methamphetamines Scrn Not Detected (NotDetected) U Benzodiazepines Scrn Not Detected (NotDetected) Urine Cocaine Screen Not Detected (NotDetected) U Marijuana (THC) Screen Not Detected (NotDetected) Coagulation 03/31/18 Range/Units 14:40 PT 10.3 (9.0-12.0) sec APTT 24.5 (22.0-30.0) sec CBC 03/31/18 Range/Units 14:40 WBC 8.2 (3.8-10.6) k/uL RBC 5.93 H (4.30-5.90) m/uL Hgb 16.4 (13.0-17.5) gm/dL Hct 50.9 (39.0-53.0) % Plt Count 172 (150-450) k/uL Comprehensive Metabolic Panel 03/31/18 Range/Units 14:40 Sodium 141 (137-145) mmol/L Potassium 3.8 (3.5-5.1) mmol/L Chloride 104 (98-107) mmol/L Carbon Dioxide 24 (22-30) mmol/L BUN 19 (9-20) mg/dL Creatinine 1.07 (0.66-1.25) mg/dL Glucose 112 H (74-99) mg/dL Calcium 9.8 (8.4-10.2) mg/dL AST 25 (17-59) U/L ALT 45 (21-72) U/L Alkaline Phosphatase 70 (38-126) U/L Total Protein 7.1 (6.3-8.2) g/dL Albumin 4.3 (3.5-5.0) g/dL Current Medications Generic Name Dose Route Start Last Admin Trade Name Freq PRN Reason Stop Dose Admin Aspirin 325 mg 04/01/18 15:00 Aspirin PO DAILY [facility] Atorvastatin Calcium 40 mg 06/14/18 09:00 Lipitor PO DAILY ANA Enoxaparin Sodium 40 mg 04/01/18 09:00 Lovenox SQ DAILY ANA Sodium Chloride 1,000 mls @ 100 mls/hr 03/31/18 17:15 03/31/18 20:31 Saline 0.9% IV 100 mls/hr .Q10H ANA Administration Intake and Output 03/31/18 04/01/18 04/01/18 22:59 06:59 14:59 Intake Total 800 Balance 800 Intake: Intake, IV Titration 800 Amount Sodium Chloride 0.9% 1, 800 000 ml @ 100 mls/hr IV . Q10H [facility] Rx#:[id number] Other: # Voids 1 Weight 105.6 kg 03/31/18 14:40 03/31/18 14:40 EKG Interpretations (text) EKG shows normal sinus rhythm with no acute changes. Assessment and Plan Plan: Assessment and plan #1 symptoms of right eye visual disturbance and loss of vision,slurring of speech, headache, possible TIA #2 history of prior stroke symptoms approximately one year ago Plan We will obtain an echocardiogram with Doppler study, patient was told approximately a year ago that he had a hole in his heart. Patient has been recommended to undergo transesophageal echocardiographic study tomorrow. The risks and benefits were explained to him in detail and he is in agreement to proceed. We will also get a bilateral lower extremity venous duplex study to rule out DVT and consult hematology for hypercoagulability workup. DNP note has been reviewed, I agree with a documented findings and plan of care. Patient was seen and examined.
--- NOTE | 2018-04-01 11:20 | P.CRDCN ---
History of Present Illness History of present illness: 32-year-old male patient who presented with visual changes in the right eye yesterday associated with some headache He felt that there was a crescentic dark area along the right superior aspect of the visual field Lasted almost 18-24 hours and now completely resolved without any sequelae. No other neurologic symptoms Family history of DVT in his grandparent, grandfather who as a result of this Unclear history of a PFO documented in a bubble study at [facility] No other cardiac risk factors no diabetes hypertension LDL 82 HDL 30 total cholesterol 139 and triglycerides 134 Plan ROEL tomorrow Hematology consult for coagulation workup Lower extremity venous Dopplers bilaterally Telemetry monitoring Twelve-lead ECG shows artifact but he is in sinus rhythm normal conduction intervals normal axis Past Medical History Past Medical History: No Reported History Additional Past Medical History / Comment(s): rt inguinal hernia,states "small hole found in my heart on an echocardiogram and being monitored every 6 mos", c/ o increased heart burn last few months hypoglycemia, kidney stones,pt stated in 2017 had episode during the night where he had pain behind rt ear up to yazidism felt like needle being jammed in his head and he could'nt move his body except rt arm in nuding motion to wake his . that last approx 30 min.after symptoms subsided he then developed slurred speech and memory problems that lasted few months.when he did seek help he was told it was anxiety/stress/ depression History of Any Multi-Drug Resistant Organisms: None Reported Past Surgical History: Hernia Repair Additional Past Surgical History / Comment(s): rt inguinal hernia repair,lt testes descended , as also had hernia repiar Past Anesthesia/Blood Transfusion Reactions: No Reported Reaction Additional Past Anesthesia/Blood Transfusion Reaction / Comment(s): no hx blood transfusion Smoking Status: Former smoker - Past Family History Mother Family Medical History: CVA/TIA Additional Family Medical History / Comment(s): grandfather had stroke Father Family Medical History: CVA/TIA Additional Family Medical History / Comment(s): grandfather had stroke Medications and Allergies Home Medications Medication Instructions Recorded Confirmed Type Ibuprofen [Advil] 600 mg PO ONCE 03/31/18 03/31/18 History Allergies Allergy/AdvReac Type Severity Reaction Status Date / Time shellfish derived [Shellfish] Allergy Nausea & Verified 03/31/18 14:18 Vomiting Physical Exam Vitals: Vital Signs Temp Pulse Pulse Pulse Resp BP BP 04/01/18 08:10 98.0 F 60 18 135/82 04/01/18 04:00 97.4 F L 70 16 118/80 04/01/18 00:00 97.9 F 60 14 111/70 03/31/18 20:00 98.1 F 72 16 124/79 03/31/18 18:53 97.8 F 75 18 150/89 03/31/18 18:03 98.2 F 68 18 153/76 03/31/18 16:48 74 16 142/78 03/31/18 15:43 87 18 159/73 03/31/18 14:01 97.9 F 71 16 153/92 Pulse Ox 04/01/18 08:10 97 04/01/18 04:00 98 04/01/18 00:00 96 03/31/18 20:00 96 03/31/18 18:53 97 03/31/18 18:03 100 03/31/18 16:48 97 03/31/18 15:43 97 03/31/18 14:01 96 Intake and Output 03/31/18 04/01/18 04/01/18 22:59 06:59 14:59 Intake Total 800 Output Total 0 Balance 800 0 Intake: Intake, IV Titration 800 Amount Sodium Chloride 0.9% 1, 800 000 ml @ 100 mls/hr IV . Q10H [facility] Rx#:[id number] Output: Urine 0 Other: # Voids 1 Weight 105.6 kg Results 03/31/18 14:40 03/31/18 14:40 Cardiac Enzymes 03/31/18 03/31/18 Range/Units 14:40 14:40 AST 25 (17-59) U/L CK-MB (CK-2) 2.0 (0.0-2.4) ng/mL Troponin I <0.012 (0.000-0.034) ng/mL Coagulation 03/31/18 Range/Units 14:40 PT 10.3 (9.0-12.0) sec APTT 24.5 (22.0-30.0) sec Lipids 04/01/18 Range/Units 07:00 Triglycerides 134 (<150) mg/dL Cholesterol 139 (<200) mg/dL HDL Cholesterol 30 L (40-60) mg/dL CBC 03/31/18 Range/Units 14:40 WBC 8.2 (3.8-10.6) k/uL RBC 5.93 H (4.30-5.90) m/uL Hgb 16.4 (13.0-17.5) gm/dL Hct 50.9 (39.0-53.0) % Plt Count 172 (150-450) k/uL Comprehensive Metabolic Panel 03/31/18 Range/Units 14:40 Sodium 141 (137-145) mmol/L Potassium 3.8 (3.5-5.1) mmol/L Chloride 104 (98-107) mmol/L Carbon Dioxide 24 (22-30) mmol/L BUN 19 (9-20) mg/dL Creatinine 1.07 (0.66-1.25) mg/dL Glucose 112 H (74-99) mg/dL Calcium 9.8 (8.4-10.2) mg/dL AST 25 (17-59) U/L ALT 45 (21-72) U/L Alkaline Phosphatase 70 (38-126) U/L Total Protein 7.1 (6.3-8.2) g/dL Albumin 4.3 (3.5-5.0) g/dL Current Medications Generic Name Dose Route Start Last Admin Trade Name Freq PRN Reason Stop Dose Admin Aspirin 325 mg 04/01/18 15:00 Aspirin PO DAILY ANA Atorvastatin Calcium 40 mg 04/01/18 09:00 04/01/18 09:50 Lipitor PO 40 mg DAILY ANA Administration Enoxaparin Sodium 40 mg 04/01/18 09:00 04/01/18 09:50 Lovenox SQ 40 mg DAILY ANA Administration Sodium Chloride 1,000 mls @ 100 mls/hr 03/31/18 17:15 03/31/18 20:31 Saline 0.9% IV 100 mls/hr .Q10H ANA Administration Intake and Output 03/31/18 04/01/18 04/01/18 22:59 06:59 14:59 Intake Total 800 Output Total 0 Balance 800 0 Intake: Intake, IV Titration 800 Amount Sodium Chloride 0.9% 1, 800 000 ml @ 100 mls/hr IV . Q10H [facility] Rx#:[id number] Output: Urine 0 Other: # Voids 1 Weight 105.6 kg 03/31/18 14:40 03/31/18 14:40
--- NOTE | 2018-04-01 13:45 | US ---
EXAMINATION TYPE: US venous doppler duplex LE BI DATE OF EXAM: 04/01/2018 1:34 PM COMPARISON: NONE CLINICAL HISTORY: r/o DVT. Patient states no symptoms, admitted to hospital for possible stroke SIDE PERFORMED: Bilateral TECHNIQUE: The lower extremity deep venous system is examined utilizing real time linear array sonog margot with graded compression, doppler sonography and color-flow sonography. VESSELS IMAGED: External Iliac Vein (EIV) Common Femoral Vein Deep Femoral Vein Greater Saphenous Vein * Femoral Vein Popliteal Vein Small Saphenous Vein * Proximal Calf Veins (* superficial vessels) Right Leg: Appears negative for DVT Left Leg: Appears negative for DVT Grayscale, color doppler, spectral doppler imaging performed of the deep veins of the bilateral lower extremities. There is normal flow, compressibility, vascular waveforms. IMPRESSION: No ultrasound evidence for acute DVT in either lower extremity.
--- NOTE | 2018-04-01 15:23 | ECHOF ---
Referral Reason:Thrombus MEASUREMENTS -------- HEIGHT: 180.3 cm WEIGHT: 105.2 kg BP: 118/80 RVIDd: 2.5 cm (< 3.3) IVSd: 1.1 cm (0.6 - 1.1) LVIDd: 4.7 cm (3.9 - 5.3) LVPWd: 1.2 cm (0.6 - 1.1) IVSs: 1.5 cm LVIDs: 3.5 cm LVPWs: 1.4 cm LA Diam: 3.6 cm (2.7 - 3.8) LAESV Index (A-L): 20.95 ml/m Ao Diam: 3.9 cm (2.0 - 3.7) AV Cusp: 2.6 cm (1.5 - 2.6) MV EXCURSION: 16.356 mm (> 18.000) MV EF SLOPE: 124 mm/s (70 - 150) EPSS: 0.7 cm MV E Inder: 1.09 m/s MV DecT: 116 ms MV A Inder: 0.50 m/s MV E/A Ratio: 2.17 FINDINGS -------- Sinus rhythm. This was a technically good study. The left ventricular size is normal. There is borderline concentric left ventricular hypertrophy. Overall left ventricular systolic function is normal with, an EF between 55 - 60 %. The right ventricle is normal in size. Normal LA size by volume 22+/-6 ml/m2. The right atrium is normal in size. Possible PFO present The aortic valve is trileaflet and appears structurally normal. The mitral valve is normal. Trace tricuspid regurgitation present. The aortic root is dilated measuring 3.9cm. Normal inferior vena cava with normal inspiratory collapse consistent with estimated right atrial pre ssure of 5 mmHg. There is no pericardial effusion. CONCLUSIONS -------- 1. Sinus rhythm. 2. This was a technically good study. 3. The left ventricular size is normal. 4. There is borderline concentric left ventricular hypertrophy. 5. Overall left ventricular systolic function is normal with, an EF between 55 - 60 %. 6. The right ventricle is normal in size. 7. Normal LA size by volume 22+/-6 ml/m2. 8. The right atrium is normal in size. 9. Possible PFO present 10. The aortic valve is trileaflet and appears structurally normal. 11. The mitral valve is normal. 12. Trace tricuspid regurgitation present. 13. The aortic root is dilated measuring 3.9cm. 14. Normal inferior vena cava with normal inspiratory collapse consistent with estimated right atrial pressure of 5 mmHg. 15. There is no pericardial effusion. SALES COMMISSIONS ANALYST: Maritza Lopez RDCS
[2018-04-01] MEDS: ASPIRIN 325 MG TAB PO SCH (17:16)
[2018-04-01] MEDS: SODIUM CHLORIDE 0.9% 1,000 ML IV SCH ×2 (17:16→17:17)
[2018-04-01] MEDS: ACETAMINOPHEN TAB 325 MG TAB PO PRN (18:05)
--- NOTE | 2018-04-01 18:24 | PN ---
PROGRESS NOTE DATE OF SERVICE: 04/01/2018 PRESENTING COMPLAINT: Change in vision. INTERVAL HISTORY: This patient presents with a change of vision affecting the right field and severe headache. This is a second episode the patient has had in the last 1 year. In the meantime patient's MRI/MRA has come back negative. The patient also has a PFO, awaiting a ROEL tomorrow. The patient's vision is nearly back to normal with some residual. REVIEW OF SYSTEMS: Done for constitutional, cardiovascular, GI, pulmonary, neuro; relevant findings as above. CURRENT MEDICATIONS: Include: 1. Aspirin and. 2. Lipitor. EXAMINATION: Temperature 97.2, pulse 76, respirations 18, blood pressure 120/79, pulse ox 97% on room air. GENERAL APPEARANCE: Sitting up, comfortable. EYES: Pupils equal. Conjunctivae normal. HEENT: External appearance of nose and ears normal. Oral cavity normal. NECK: JVD not raised. Mass not palpable. RESPIRATORY: Effort normal. Lungs are clear. CARDIOVASCULAR: First and second sounds normal. No edema. ABDOMEN: Soft, nontender. Liver and spleen not palpable. PSYCHIATRY: Alert and oriented x3. Mood and affect normal. NEUROLOGICAL: Unremarkable. INVESTIGATIONS: LDL is 82. TSH normal. An MRI of the brain with MRA unremarkable. Venous Doppler unremarkable. ASSESSMENT: 1. Episode of loss of vision on the right side with no evidence of ischemia on the MRI, though the patient has slight still clinical deficit that is a transient ischemic attack. 2. Patent foramen ovale. 3. Obesity, BMI 32.9. PLAN: Patient will await a ROEL. Awaiting input from Neurology. Patient's urine drug screen was checked that was negative. Care was discussed with the patient. Follow. MMODL / IJN: [id number] /
[2018-04-01] MEDS: ATORVASTATIN 10 MG TAB PO SCH (19:45)
--- NOTE | 2018-04-01 20:09 | CONS ---
CONSULTATION DATE OF CONSULTATION: 04/01/2018. CHIEF COMPLAINT: Visual changes. HISTORY OF PRESENT ILLNESS: Mr. Lemus is a 32-year-old male who is being evaluated by the neurology service per the request of Dr. King for a transient episode of visual changes. The patient states that he was at work yesterday morning when he noticed a sudden onset of right visual field deficit. He did not have any headache or any lateralizing numbness or weakness with this event. When the symptoms did not resolve, he was brought into [facility] Emergency Room for further workup and management. A CT scan of the brain was done, which was normal. An MRI of the brain along with an MRA of the brain and neck were also done, all of which were normal. His comprehensive metabolic profile, CBC, cardiac enzymes, INR, urinalysis and urine drug screen were all normal. His fasting lipid panel was normal except for slightly reduced HDL at 30. The symptoms lasted approximately 12 hours and resolved spontaneously. The patient was not on any anti-platelet therapy at home. He was started on aspirin 325 mg daily. The patient does have a strong family history of strokes. At the time of my evaluation, he denies any neurological complaints. PAST MEDICAL HISTORY: Positive for intracardiac foramen of unknown significance. PAST SURGICAL HISTORY: Hernia repair. SOCIAL HISTORY: The patient quit smoking 1 year ago. He denies any alcohol or drug use. FAMILY HISTORY: Positive for strokes. HOME MEDICATIONS: None. ALLERGIES: SHELLFISH. REVIEW OF SYSTEMS: CONSTITUTIONAL: Negative. EYES: As mentioned above. ENT: Negative. CARDIOVASCULAR: As mentioned above. RESPIRATORY: Negative. GASTROINTESTINAL: Negative. GENITOURINARY: Negative. PSYCHIATRIC: Negative. NEUROLOGICAL: As mentioned above. DERMATOLOGICAL: Negative. ENDOCRINE: Negative. MUSCULOSKELETAL: Negative. PHYSICAL EXAM: Vital signs show a temperature of 98, pulse 60, respirations 18, blood pressure 135/82. GENERAL APPEARANCE: The patient is a well-developed male who appears to be in no acute distress. HEENT: Normocephalic, atraumatic. No facial asymmetry is seen. NECK: Supple with no masses felt. CARDIOVASCULAR: Regular rate and rhythm. ABDOMEN: Nontender, nondistended. Extremities showed no edema or clubbing. NEUROLOGICAL: The patient is alert, aware and oriented x3. Speech and language are normal. Strength is full in all 4 extremities. Sensory was normal to light touch in all 4 extremities. Cranial nerves 2-12 were grossly intact. No tremors or seizure- like activity is seen. IMPRESSION: 1. Transient ischemic attack. 2. Right visual field deficit, resolved. RECOMMENDATION: The patient does appear to have suffered a transient ischemic attack with a transient episode of right visual field deficit. He has been started on aspirin 325 mg daily. I will also start him on Lipitor 10 mg daily. I will order a serum homocystine level and an EEG. I also recommend a cardiology consultation for a transesophageal echocardiogram, given his previous cardiac history. The patient did quit smoking 1 year ago and he was advised on continuing cessation. Specific stroke risk factors were discussed with him. Continue the rest of your current workup and management. I will continue to follow with you. Further recommendations to follow. Thank you for allowing me to participate in the care of your patient. If you have any questions, please feel free to contact me. TRINIDAD / KAVITHA: [id number] /
[2018-04-02] MEDS ORDERED: SODIUM CHLORIDE 0.9% 500 ML IV ONE (08:15)
[2018-04-02] MEDS ORDERED: fentaNYL (PF) 50 MCG/ML 2 ML AMP ONE (08:16)
[2018-04-02] MEDS ORDERED: MIDAZOLAM 2 MG/2 ML VIAL ONE ×2 (08:16→08:35)
[2018-04-02] MEDS: BENZOCAINE SPRAY 1 CAN MUCOUS MEM ONE ×3 (08:17→08:21)
[2018-04-02] MEDS: fentaNYL (PF) 50 MCG/ML 2 ML AMP IVP ONE ×2 (08:24→08:29)
[2018-04-02] MEDS ORDERED: MIDAZOLAM 2 MG/2 ML VIAL IVP ONE ×2 (08:24→08:34)
[2018-04-02] MEDS: MIDAZOLAM 2 MG/2 ML VIAL IVP ONE ×2 (08:29→08:31)
[2018-04-02] MEDS ORDERED: ONDANSETRON 4 MG/2 ML VIAL IVP ONE (08:32)
[2018-04-02] MEDS ORDERED: ONDANSETRON 4 MG/2 ML VIAL ONE (08:34)
--- NOTE | 2018-04-02 09:13 | ECHOT ---
TRANSESOPHAGEAL ECHOCARDIOGRAM DATE OF SERVICE: 04/02/2018 PERFORMING PHYSICIAN: Ulices Burnette MD. PROCEDURE PERFORMED: Transesophageal echocardiogram. INDICATION: This is a pleasant 32-year-old gentleman who presented to the hospital with episode of TIA/CVA and this is his second episode. The ROEL is to rule out any cardiac source of embolization. SEDATION: Conscious sedation with 20 minutes. PROCEDURE DESCRIPTION: After obtaining an informed consent, explaining the procedure, benefits, risks, complications and alternatives, the patient was brought to the transesophageal echocardiogram suite. A pulse oximetry and heart rate monitors were attached to the patient prior to the procedure. The patient's throat was sprayed using lidocaine locally. Following that, the patient was turned into left lateral position. A bite guard was placed and the patient was then sedated with the above doses of Versed and fentanyl in divided doses. Following that, the transesophageal echocardiogram probe was advanced through the bite guard into the mid esophagus where 2-D echocardiogram images as well as color Doppler images of various cardiac structures were obtained. We evaluated the interatrial septum using 2-D echocardiogram, color Doppler, and contrast study. The procedure was completed. There were no complications. FINDINGS: The left ventricular dimension and systolic function appeared to be within normal limits. The ejection fraction is about 55% to 60% with a normal wall motion. The right ventricle is of normal size and function. The left atrium and right atrium dimension appear to be within normal limits. The aortic valve is trileaflet valve without stenosis or regurgitation. The mitral valve is normal with trace MR. Normal tricuspid valve and pulmonic valve. The interatrial septum was well integrated and there is a small patent story ovale with evidence of [id number] shunt seen. CONCLUSION: 1. Hyperdynamic interatrial septum with evidence of patent story ovale with right-to- left shunt was identified on multiple bubble study. 2. Normal left ventricular dimension and systolic function. 3. Normal right ventricular dimension and systolic function. 4. Normal intracardiac valves. 5. Normal aortic root dimension. 6. No evidence of pericardial effusion. MMODL / IJN: [id number] /
[2018-04-02 09:22] VITALS: RESP 16
[2018-04-02] MEDS: ASPIRIN 325 MG TAB PO SCH (11:04)
[2018-04-02] MEDS: ATORVASTATIN 10 MG TAB PO SCH (11:04)
[2018-04-02] MEDS: ENOXAPARIN 40 MG/0.4 ML SYRINGE SQ SCH (11:04)
[2018-04-02 11:19] VITALS: BP 118/77; PULSE 66; TEMP 97.6
[2018-04-02] MEDS ORDERED: CLOPIDOGREL 75 MG TAB PO SCH (11:30)
--- NOTE | 2018-04-02 12:31 | PN ---
PROGRESS NOTE This is a 32-year-old male patient who presented with CVA with visual field defects, which have resolved. He underwent an MRI, it did not show any evidence for CVA. DVT workup was negative with venous Dopplers. His 2D echo shows preserved LV size and systolic function and normal RV size and function. Normal PA pressures. Subsequently, he underwent a ROEL which showed a hyperdynamic interatrial septum, no interatrial septal aneurysm with the [id number] shunt that was identified on multiple bubble study, normal LV and RV size and function, normal aortic root and normal right-sided pressures. He is still waiting coagulation workup. He is doing well from a cardiac standpoint. I had a detailed discussion with him regarding the role of ASD closure, future risk of atrial fibrillation, future issues with catheter based AFib ablation and future risk of strokes. Today his vitals are stable. He looks stable. Temperature is 97.6 degree Fahrenheit, respirations are normal, blood pressure 118/77 mmHg. Head and neck examination is normal. Heart sounds are normal. Lungs are clear to auscultation. Extremities are warm, no edema. IMPRESSION: 1. Clear transient ischemic attack with visual field defects and this is his second episode. 2. Known patent foramen ovale with clear eiowg-bo-tchz shunting. 3. No evidence for any atrial arrhythmias or atrial fibrillation. 4. No deep venous thrombosis noted on lower extremity venous Dopplers. 5. Coagulation workup is pending. SUGGEST: 1. Patient to go home today on Plavix plus 15 mg of Xarelto. He will see Dr. Burnette regarding ASD closure device placement. 2. He will see me subsequently in about 6 weeks and I will follow him as an outpatient. MMODL / IJN: [id number] /
--- NOTE | 2018-04-02 14:24 | P.PN ---
Subjective Progress Note Date: 04/02/18 Principal diagnosis: Vision change Is a 32-year-old male continuing be evaluated by the neurology service for transient episode of visual changes. Recall that there was no headache or lateralizing symptoms. CT of the brain was normal. MRI and MRA of the brain were also normal. His her cardiology workup and was diagnosed with an atrial septal defect likely needing surgical closure. He is scheduled to follow-up with Dr. Anne for this. He has had no further neurological symptoms since his admission. At the time of my exam he is just returned from his EEG. Objective - Vital Signs Vital signs: Vital Signs Temp 97.6 F 04/02/18 11:18 Pulse 66 04/02/18 11:18 Resp 16 04/02/18 11:18 BP 118/77 04/02/18 11:18 Pulse Ox 95 04/02/18 11:18 Intake & Output 04/01/18 04/02/18 04/02/18 18:59 06:59 18:59 Intake Total 1820 300 Output Total 0 Balance 1820 300 Weight 104.8 kg Intake: IV 300 Intake, IV Titration 800 Amount Sodium Chloride 0.9% 1, 800 000 ml @ 100 mls/hr IV . Q10H [facility] Rx#:[id number] Oral 1020 Output: Urine 0 Other: # Voids 0 - Constitutional General appearance: Present: cooperative, no acute distress - EENT Eyes: Present: PERRLA. Absent: abnormal pupil, ptosis ENT: Present: hearing grossly normal - Neck Neck: Present: normal ROM. Absent: rigidity - Respiratory Respiratory: negative: prolonged expiration, prolonged inspiration - Cardiovascular Rhythm: regular - Gastrointestinal General gastrointestinal: Absent: distended, tenderness - Neurologic Neurologic Comment(s): The patient is alert awake and oriented 3. Speech and language are normal. There is no facial asymmetry. Strength is 5 out of 5 in bilateral upper and lower extremities. There is no sensory deficit. No tremors or seizures are seen. Cranial nerves II through XII are intact globally. - Labs CBC & Chem 7: 03/31/18 14:40 03/31/18 14:40 Assessment and Plan (1) TIA (transient ischemic attack) Current Visit: Yes Status: Acute Code(s): G45.9 - TRANSIENT CEREBRAL ISCHEMIC ATTACK, UNSPECIFIED SNOMED Code(s): 217237854 (2) Transient visual loss Current Visit: Yes Status: Resolved Code(s): H53.129 - TRANSIENT VISUAL LOSS , UNSPECIFIED EYE SNOMED Code(s): 07683818 (3) Atrial septal defect Current Visit: Yes Status: Suspected Code(s): Q21.1 - ATRIAL SEPTAL DEFECT SNOMED Code(s): 89725739 Plan: The patient does appear to have suffered a transient ischemic attack. We'll continue aspirin 325 mg and Lipitor 10 mg daily he will continue to follow with cardiology as above findings. An EEG has been performed and pending any unforeseen abnormalities he would be cleared from neurological standpoint. I have performed a history and physical on the above patient. I have reviewed the above note, and agree.
--- NOTE | 2018-04-02 15:42 | P.CONS ---
History of Present Illness - Reason for Consult Consult date: 04/01/18 TIA, Hypercoagulable Work-up Requesting physician: Jessica Lu - Chief Complaint Vision Loss - History of Present Illness Campbell is a 32 year old male who presented to [facility] Emergency department with complaints of peripheral loss of vision on the right eye, left sided headache. He describes the scenario as being at work, working on the computer and noticing the numbers or codes he reads daily had become unreadable. He stood up and went to get a glass of water and noted that he could not see anything in his right peripheral vision. THe right peripheral view was "black". He called and was sent to [facility] outpatient clinic, who subsequently sent him to the optamologist. He under went a full opthomology exam, with dilation and fundoscopy. Which per patient appeared normal. He was sent to ER for concern of stroke. He did have some slurring of speech and left sided head pain on admission. Risk Factors: - Family History of CVAs and Cancer - Intermittednt OTC testosterone/Work-out D building supplements (Recently and possibly around time of previous incidents) - History of tobacco use (5-6 years, quit 2 years ago) Previous Episodes: - One month ago slurring of speech, returned to normal after couple hours - 1-2 years ago hospitalization for similiar incident of patient could not move left side of body and difficulty speaking, evaluated by Sarah, unknown etiology. - Sharp shooting pain on left side of head with 2 of 3 of the above incidents. Objective info: - Strength and Neuro Exam WNL - All Symptoms have returned to baseline since incidence, no current vision changes or headaches Subjective Info: - Denies any fevers, chills, night sweats. - No Out of country trips - No long Car rides - No Sick Contacts - No Traumas Review of Systems A 14 point review of systems is assessed and completed and all negative except HPI Past Medical History Past Medical History: No Reported History Additional Past Medical History / Comment(s): rt inguinal hernia,states "small hole found in my heart on an echocardiogram and being monitored every 6 mos", c/ o increased heart burn last few months hypoglycemia, kidney stones,pt stated in 2017 had episode during the night where he had pain behind rt ear up to muslim felt like needle being jammed in his head and he could'nt move his body except rt arm in nuding motion to wake his . that last approx 30 min.after symptoms subsided he then developed slurred speech and memory problems that lasted few months.when he did seek help he was told it was anxiety/stress/ depression History of Any Multi-Drug Resistant Organisms: None Reported Past Surgical History: Hernia Repair Additional Past Surgical History / Comment(s): rt inguinal hernia repair,lt testes descended , as infant also had hernia repiar Past Anesthesia/Blood Transfusion Reactions: No Reported Reaction Additional Past Anesthesia/Blood Transfusion Reaction / Comm: no hx blood transfusion Smoking Status: Former smoker - Past Family History Mother Family Medical History: CVA/TIA Additional Family Medical History / Comment(s): grandfather had stroke Father Family Medical History: CVA/TIA Additional Family Medical History / Comment(s): grandfather had stroke Medications and Allergies Home Medications Medication Instructions Recorded Confirmed Type Atorvastatin [Lipitor] 10 mg PO DAILY #30 tab 04/02/18 Rx Clopidogrel [Plavix] 75 mg PO DAILY #30 tab 04/02/18 Rx Rivaroxaban [Xarelto] 15 mg PO W/SUPPER #30 tab 04/02/18 Rx Allergies Allergy/AdvReac Type Severity Reaction Status Date / Time shellfish derived [Shellfish] Allergy Nausea & Verified 03/31/18 14:18 Vomiting Physical Exam Vitals: Vital Signs Temp Pulse Pulse Pulse Resp BP BP 04/01/18 08:10 98.0 F 60 18 135/82 04/01/18 04:00 97.4 F L 70 16 118/80 04/01/18 00:00 97.9 F 60 14 111/70 03/31/18 20:00 98.1 F 72 16 124/79 03/31/18 18:53 97.8 F 75 18 150/89 03/31/18 18:03 98.2 F 68 18 153/76 03/31/18 16:48 74 16 142/78 03/31/18 15:43 87 18 159/73 03/31/18 14:01 97.9 F 71 16 153/92 Pulse Ox 04/01/18 08:10 97 04/01/18 04:00 98 04/01/18 00:00 96 03/31/18 20:00 96 03/31/18 18:53 97 03/31/18 18:03 100 03/31/18 16:48 97 03/31/18 15:43 97 03/31/18 14:01 96 Intake and Output 03/31/18 04/01/18 04/01/18 22:59 06:59 14:59 Intake Total 800 Output Total 0 Balance 800 0 Intake: Intake, IV Titration 800 Amount Sodium Chloride 0.9% 1, 800 000 ml @ 100 mls/hr IV . Q10H [facility] Rx#:[id number] Output: Urine 0 Other: # Voids 1 Weight 105.6 kg - Constitutional General appearance: average body habitus, cooperative, no acute distress - EENT Eyes: EOMI, PERRLA, dentition normal ENT: NA/AT, normal oropharynx - Neck Supple, trachea midline Neck: normal ROM - Respiratory Respiratory: bilateral: CTA (No increased effort) - Cardiovascular Rhythm: regular Heart sounds: normal: S1, S2 - Gastrointestinal General gastrointestinal: normal bowel sounds, soft - Integumentary Integumentary: pale - Neurologic No focal defects Neurologic: CNII-XII intact - Musculoskeletal Musculoskeletal: generalized weakness, strength equal bilaterally - Psychiatric Psychiatric: A&O x's 3, appropriate affect, intact judgment & insight Results CBC & Chem 7: 03/31/18 14:40 03/31/18 14:40 Labs: Abnormal Lab Results - Last 24 Hours (Table) 03/31/18 03/31/18 03/31/18 Range/Units 14:40 14:40 14:40 RBC 5.93 H (4.30-5.90) m/uL Glucose 112 H (74-99) mg/dL Total Creatine Kinase 179 H (55-170) U/L HDL Cholesterol (40-60) mg/dL 04/01/18 Range/Units 07:00 RBC (4.30-5.90) m/uL Glucose (74-99) mg/dL Total Creatine Kinase (55-170) U/L HDL Cholesterol 30 L (40-60) mg/dL Assessment and Plan Plan: Assessment and Recommendations: 1. Neurological Symptoms Acute - Recurrent - Unclear Etiology, most consistent with a likelihood of TIAs - Full Neurological and Cardiovascular work-up negative - Family History of CVAs, Malignancy - Personal Use of Anabolic and Nutritional supplemental Testosterone - Check Testosterone level and Hypercoaguable Panel as outpatient and patient will follow-up in office in 2 weeks. - He is aware of the plan and agrees, at bedside.
[2018-04-02] MEDS: ACETAMINOPHEN TAB 325 MG TAB PO PRN (16:37)
[2018-04-02] MEDS ORDERED: RIVAROXABAN 15 MG TAB PO SCH (17:30)
--- NOTE | 2018-04-02 23:16 | DS ---
DISCHARGE SUMMARY DATE OF ADMISSION: 03/31/2018. DATE OF DISCHARGE: 04/02/2018. FINAL DIAGNOSES: 1. Acute stroke, probably embolic, secondary to patent foramen ovale. 2. Obesity, BMI 32.9. HOSPITAL COURSE: This patient presented with loss of vision on the right field that recovered. The patient did have a MRI/MRA of the brain that was unremarkable. ROEL did confirm a patent Contreras ovale. The patient had similar symptoms about a year ago when he had gone to [place]. Given that the patient has a patent foramen ovale and this is a second episode, the patient has been put on Xarelto and Plavix. He will follow up with Dr. Burnette for closure of the patch. This is discussed with Dr. Rubin Jon today. The patient's symptoms have nearly resolved otherwise with very minimal residual. Consultation with Dr. Jon from Cardiology and Dr. Carlos from Neurology. EXAMINATION: No focal signs currently. Lungs are clear. There is no evidence of any arrhythmia. DISCHARGE MEDICATIONS: 1. Lipitor 10 mg a day. 2. Plavix 75 mg a day. 3. Xarelto 50 mg with supper. FOLLOWUP: 1. Dr. Jon in [address] Curry King on 04/20/2018. 3. Dr. Burnette on 04/12/2018. 4. [address]. Carlos in [address] Anders Maher on 04/05/2018. MMODL / IJN: [id number] /
--- NOTE | 2018-04-05 14:34 | EEG ---
ELECTROENCEPHALOGRAM REPORT DATE OF SERVICE: 04/02/2018. REASON FOR TESTING: Transient ischemic attack. DESCRIPTION OF THE PROCEDURE: This EEG was performed using a 21 channel digital electroencephalograph, following international 10-20 system. DESCRIPTION OF THE RECORDING: From the beginning of the tracing, and with patient's eyes closed, the background rhythm was mostly consisting of 9 Hz alpha frequency in the posterior occipital leads. No obvious asymmetry is seen. Photic stimulation was performed with a minimal driving response seen. No pathological waves were elicited. The patient does reach stage II of sleep during the tracing and occasional sleep spindles and K complexes are seen. Hyperventilation was not performed. Rare movement artifacts are seen. No epileptiform discharges were noticed. The EKG lead showed a regular rate and rhythm. INTERPRETATION: This asleep and awake EEG can be considered within normal limits. There was no asymmetry seen. No epileptiform discharges were noticed. The absence of epileptiform discharges does not rule out the diagnosis of epilepsy; therefore clinical correlation is recommended. TRINIDAD / KAVITHA: [id number] /
== END 2018-04-02 16:55 | disposition home or self-care (01) ==
LOC: EC 13:50 → 6SEL 17:02
PROVIDERS: ADMIT Hospitalist; ATTEND Hospitalist
DX: I63.9 Cerebral infarction, unspecified (principal); Q21.1 Atrial septal defect; E66.9 Obesity, unspecified; Z68.32 Body mass index [BMI] 32.0-32.9, adult; H53.121 Transient visual loss, right eye; R51 Headache; R47.81 Slurred speech; M54.2 Cervicalgia; F41.9 Anxiety disorder, unspecified; Z87.891 Personal history of nicotine dependence; Z87.442 Personal history of urinary calculi; Z91.013 Allergy to seafood; Z79.82 Long term (current) use of aspirin; Z79.899 Other long term (current) drug therapy; Z79.02 Long term (current) use of antithrombotics/antiplatelets; Z79.01 Long term (current) use of anticoagulants; Z82.3 Family history of stroke; Z80.9 Family history of malignant neoplasm, unspecified; F32.9 Major depressive disorder, single episode, unspecified; Z82.49 Family history of ischemic heart disease and other diseases of the circulatory system
CPT/HCPCS: 99285; 96360 ×2; 96361 ×6; 96372; 36415; 95819; 93005; 93312; 93320; 93306; 93325; 97162; 97165; 92523; 80061; 80053; 85652; 84443; 85385; 82550; 82553; 84484; 85025; 85384; 85610; 85730; 86140; 81003; 83090; 80306; 71046; 93970; 70496; 70450; 70498; 70544; 70549; 70553; G0378 ×3; J2250; J2405; J1650 ×2; J3010; A9581; Q9967

== ENCOUNTER → 2018-04-02 | Outpatient (CLI) | payer BC ==
[2018-04-02 17:41] LABS: INR 1.1 (<1.2); Partial Thromboplastin Time 25.3 sec (22.0-30.0); Prothrombin Time 10.3 sec (9.0-12.0)
[2018-04-03 00:58] LABS: Cardiolipin Ab IgG Interp NEGATIVE (NEGATIVE); Cardiolipin Ab IgM Interp NEGATIVE (NEGATIVE); Cardiolipin IgA Antibody <0.5 U/mL; Cardiolipin IgM Antibody 0.3 U/mL
[2018-04-05 13:11] LABS: APTT 41 Sec(s) (<43); Dilute Russell Viper Venom 43 Sec(s) (<44)
[2018-04-06 10:36] LABS: Anti-Thrombin III Activity 97 % (79-109); Protein C (Activity) 115 % (71-138)
[2018-04-06 11:05] LABS: Free Protein S Antigen 127 % (57 - 171)
== END | disposition home or self-care (01) ==
LOC: LABWHC1 16:51
PROVIDERS: ATTEND Internal Medicine Hematology & Oncology
DX: G45.9 Transient cerebral ischemic attack, unspecified (principal)
CPT/HCPCS: 36415; 81240; 81241; 84402; 84403; 85300; 85303; 85306; 85384; 85610; 85613; 85730; 86146; 86147

== ENCOUNTER 2018-04-23 08:40 | Day surgery (SDC) | payer BC ==
[2018-04-19 16:09] VITALS: BMI 33.7
[~2018-04-23 08:40] MED LIST changes: +ALPRAZolam 0.25 MG TAB PO PRN; +ALPRAZolam 0.5 MG TAB PO PRN; +ASPIRIN 325 MG TAB PO STA; +ATORVASTATIN 80 MG TAB PO STA; -DEXAMETHASONE SOD PHOSPHATE 10 MG/ML 1 ML VIAL IV ONE; -HEPARIN SODIUM,PORCINE 5,000 UNIT/ML 1 ML VIAL SQ ONE; -LACTATED RINGERS 1,000 ML IV SCH; -LIDOCAINE 1% 20 ML VIAL (10MG/ML) FOR IV START INTRADERMA PRN; +NITROGLYCERIN SL TABS 0.4 MG TAB SUBLINGUAL PRN; -ONDANSETRON 4 MG/2 ML VIAL IVP ONE; -SCOPOLAMINE 1.5MG/72HR PATCH TRANSDERM ONE; +SODIUM CHLORIDE 0.9% 1,000 ML in EMPTY BAG 1 BAG IV ONE; -ceFAZolin 2 GM in SODIUM CHLORIDE 0.9% 100 ML IVPB ONE; +ceFAZolin IN SWFI 2 GM/20 ML SYRINGE IVP STA
[2018-04-23] MEDS ORDERED: SODIUM CHLORIDE 0.9% 1,000 ML IV ONE (09:05)
[2018-04-23] MEDS ORDERED: MIDAZOLAM 2 MG/2 ML VIAL IV ONE (10:17)
[2018-04-23] MEDS: fentaNYL (PF) 50 MCG/ML 2 ML AMP IV ONE ×2 (10:17→10:27)
[2018-04-23] MEDS ORDERED: LIDOCAINE 1% INJ 10MG/ML (20 ML MDV) SQ ONE (10:19)
[2018-04-23] MEDS: MIDAZOLAM 2 MG/2 ML VIAL IV ONE ×2 (10:23→10:36)
[2018-04-23] MEDS ORDERED: HEPARIN SODIUM 1,000 UN/ML (10ML VL) IV ONE (10:27)
[2018-04-23] MEDS ORDERED: IOPAMIDOL-370 50ML BTL INJ ONE (10:49)
[2018-04-23] MEDS ORDERED: CLOPIDOGREL 75 MG TAB PO ONE (10:51)
--- NOTE | 2018-04-23 12:03 | CA ---
CARDIOLOGY REPORT DATE OF SERVICE: 04/23/2018 PERFORMING PHYSICIAN: Ulices Burnette MD, Ob Scrub Tech. PROCEDURE PERFORMED: 1. Intracardiac echocardiogram imaging. 2. Successful percutaneous closure of patent story ovale using 25 mm Amplatzer PFO occluder with good results and without any residual shunt. 3. Right atrial angiogram. INDICATION: This is a pleasant 32-year-old gentleman who presented to the hospital with TIA/CVA and was seen by the Neurology Service, Dr. Carlos, who recommended proceeding with ROEL. The ROEL revealed patent story ovale with [id number] shunt. APPROACH: Right common femoral vein. COMPLICATION: None. LEVEL OF SEDATION: Moderate with sedation length of 30 minutes. PROCEDURE DESCRIPTION: After obtaining an informed consent, the patient was brought to the Card[facility]. The right common femoral vein was cannulated x2 using micropuncture using an 18-Thai Cook needle, the guidewire passed easily, then I placed an 8-Thai sheath in the right common femoral vein. I did place two 8-Thai sheaths 11 cm in the right common femoral vein. At that point, anticoagulation was initiated using heparin and the patient was given 10,000 units of heparin IV. Subsequently, I did advance the intracardiac echocardiogram probe through the sheath under fluoroscopy guidance to the right atrium where I did interrogation of the patent story ovale as well as the intracardiac structures. Subsequently, I did measurement of the patent story ovale as well. After that, I did cross the patent story ovale using 0.35 J-wire with 5-Thai multipurpose catheter. The wire was advanced to the left upper pulmonary vein. Subsequently, the catheter was advanced to the left upper pulmonary vein. Subsequently, I did exchange my 0.35 wire into Amplatzer wire using an the multipurpose catheter. After that I decided to use 25 mm Amplatzer PFO occluder, which was spread under saline. After that, I did exchange my 11 cm sheath into the long sheath using the Amplatzer wire under fluoroscopy guidance, where I did cross the patent story ovale with the sheath. Subsequently, I did advance the sheath over the dilator where I was holding the dilator and the wire together. Subsequently, the dilator and the wire were pulled out as 1 unit. Then I loaded the Amplatzer PFO occluder through the sheath where I did deploy initially the left atrium and then the right atrium occluder under fluoroscopy guidance and under images. After that, I did release the device after I did multiple interrogation under ice and I made sure there was no pinch on the SVG nor SVC nor aortic valve and no residual flow seen. After that, I did exchange my long sheath into short sheath using a 0.35 wire and the procedure was completed at that point without any complication. POST-PROCEDURE MANAGEMENT: 1. Dual anti-platelet therapy for 4 weeks. 2. Aspirin for 6 months. 3. Follow up with the patient. MMODL / IJN: [id number] /
[2018-04-23] MEDS: SODIUM CHLORIDE 0.9% 1,000 ML IV SCH (12:43)
[2018-04-23] MEDS ORDERED: MORPHINE SULFATE 2 MG/ML SYRINGE IVP ONE (13:05)
--- NOTE | 2018-04-23 13:06 | LTR ---
April 23, 2018 Re: Campbell Lemus Dear Dr. Maher: Mr. Campbell Lemus underwent successful closing patent story ovale using Amplatzer PFO occluder with good results and without any complication. I want to thank you for allowing me to participate in his care and please do not hesitate to call if you have any question or concern. Sincerely, MD TRINIDAD Livingston / BELINDAN: [id number] /
--- NOTE | 2018-04-23 13:06 | LTR ---
April 23, 2018 Re: Campbell Lemus Dear Mercedez: Mr. Campbell Lemus underwent successful percutaneous closure of patent story ovale using the Amplatzer device with good angiographic results and without any complication. Thank you for allowing me to participate in his care and please do not hesitate to call if you have any question or concern. Sincerely, MD TRINIDAD Livingston / BELINDAN: [id number] /
--- NOTE | 2018-04-23 13:31 | XR ---
EXAMINATION TYPE: XR chest 1V portable DATE OF EXAM: 04/23/2018 COMPARISON: Prior chest x-ray 03/31/2018 HISTORY: Chest pain TECHNIQUE: Single frontal view of the chest is obtained. FINDINGS: There is been interval placement of a septal defect occlusion device overlying the right h eart. No pneumothorax or pleural effusion. Heart size within normal limits. Pulmonary vascularity and dany within normal limits. IMPRESSION: Interval procedural change.
[2018-04-23] MEDS ORDERED: ATROPINE SULFATE 0.1 MG/ML 10ML SYRINGE ONE (14:22)
[2018-04-23] MEDS: ACETAMINOPHEN TAB 325 MG TAB PO PRN (16:07)
--- NOTE | 2018-04-23 18:25 | P.PN ---
Progress Note - Text Progress Note Date: 04/23/18 The patient appeared on our list as a consult, due to association from his previous visit. A formal consult was not placed this visit. Case was discussed with cardiology and a formal consult was not felt to be required. It was recommended that the patient continue on full dose anticoagulation, given that the presumed source of his embolism was venous. This would consist of Xarelto 15 mg by mouth twice a day for a total of 3 weeks followed by 20 mg per day. Follow-up in the office in 3-4 weeks for hypercoagulable workup Discharge whenever okay with cardiology
[2018-04-24] MEDS: ACETAMINOPHEN TAB 325 MG TAB PO PRN (04:06)
[2018-04-24] MEDS: SODIUM CHLORIDE 0.9% 1,000 ML IV SCH (06:37)
--- NOTE | 2018-04-24 06:51 | XR ---
EXAMINATION TYPE: XR chest 2V DATE OF EXAM: 04/24/2018 HISTORY: ASD/PFO placement. REFERENCE: Previous study dated 04/23/2018. FINDINGS: There is a septal defect occlusion device projecting over the region of the right atrium. T he heart is not enlarged. The lungs are clear. Pleural spaces are clear. IMPRESSION: 1. NO ACUTE INTRATHORACIC ABNORMALITY. 2. POSTPROCEDURAL CHANGE.
[2018-04-24 07:13] LABS: Anion Gap 11 mmol/L; Blood Urea Nitrogen 19 mg/dL (9-20); Calcium 8.7 mg/dL (8.4-10.2); Carbon Dioxide 25 mmol/L (22-30); Chloride 106 mmol/L (98-107); Glucose 112 mg/dL (74-99); Potassium 4.3 mmol/L (3.5-5.1); Sodium 142 mmol/L (137-145)
[2018-04-24 07:23] LABS: Basophils % (A) 0 %; Eosinophils # (A) 0.1 k/uL (0-0.7); Eosinophils % (A) 2 %; Lymphocytes % (A) 21 %; MCH 28.5 pg (25.0-35.0); MCHC 32.7 g/dL (31.0-37.0); MCV 87.2 fL (80.0-100.0); Mean Platelet Volume 8.7; Monocytes # (A) 0.4 k/uL (0-1.0); Monocytes % (A) 8 %; Neutrophils # (A) 3.1 k/uL (1.3-7.7); Neutrophils % (A) 66 %; Platelet Count 133 k/uL (150-450); RBC 5.62 m/uL (4.30-5.90); RDW 13.1 % (11.5-15.5); WBC 4.7 k/uL (3.8-10.6)
[2018-04-24] MEDS ORDERED: ASPIRIN 325 MG TAB PO SCH (09:00)
[2018-04-24] MEDS ORDERED: CLOPIDOGREL 75 MG TAB PO SCH ×2 (09:00)
[2018-04-24] MEDS ORDERED: ATORVASTATIN 10 MG TAB PO SCH (09:00)
--- NOTE | 2018-04-24 09:58 | P.PN ---
Subjective Progress Note Date: 04/24/18 Discharge note This is a pleasant 32-year-old gentleman who presented to the hospital with TIA/CVA and was seen by neurology service, who recommended proceeding with ROEL. The ROEL revealed a patent foramen ovale with right-to- left shunt. Patient was admitted to the hospital on this occasion and underwent successful percutaneous closure of a patent foramen ovale with good results. He was having some mild chest discomfort yesterday, and EKG was performed which did not reveal any significant changes. Patient also had an echocardiogram with Doppler study performed which did not reveal evidence of significant pericardial effusion. An echo was performed again this morning and was reviewed by Dr. Anne. Patient was seen and examined this morning, denies any chest pain, breathing is been stable. Chest x-ray performed this morning did not reveal any acute intrathoracic abnormality. Septal defect occlusion device seen He has been encouraged to be up ambulating in the hallway today. Plan is for him to be discharged home today. Patient does have history of hypercoagulability state and for this reason needs to be on xarelto. Recommendation by Dr. King is to continue Xarelto 15 mg twice a day for a total of 3 weeks, then 20 mg a day. Patient will also go home on Plavix and the aspirin will be discontinued. Objective - Vital Signs Vital signs: Vital Signs Temp 96.9 F L 04/24/18 08:00 Pulse 70 04/24/18 08:00 Resp 14 04/24/18 08:00 BP 119/74 04/24/18 08:00 Pulse Ox 96 04/24/18 08:00 Intake & Output 04/23/18 04/24/18 04/24/18 18:59 06:59 18:59 Intake Total 200 Balance 200 Weight 106.594 kg 54 kg Intake: IV 200 Sodium Chloride 0.9% 1, 0 000 ml @ 50 mls/hr IV . Q20H [facility] Rx#:[id number] Other: Voiding Method Urinal # Voids 0 2 # Bowel Movements 0 - Exam PHYSICAL EXAMINATION: GENERAL: 32-year-old gentleman in no acute distress at the time of my examination HEENT: Head is atraumatic, normocephalic. Pupils equal, round. Sclera anicteric. Conjunctiva are clear. Mucous membranes of the mouth are moist. Neck is supple. There is no elevated jugular venous pressure.] bruit is heard. HEART EXAMINATION: Heart S1, S2 normal. No murmur or gallop heard. CHEST EXAMINATION: Lungs are clear to auscultation and precussion. No chest wall tenderness is noted on palpation or with deep breathing. ABDOMEN: Soft, nontender. Bowel sounds are heard. No organomegaly noted. EXTREMITIES: 2+ peripheral pulses with no evidence of peripheral edema and no calf tenderness noted. Right groin soft, no hematoma, small amount of ecchymosis. NEUROLOGIC patient is awake, alert and oriented ?-3. . - Labs CBC & Chem 7: 04/24/18 06:44 04/24/18 06:44 Labs: Abnormal Lab Results - Last 24 Hours (Table) 04/24/18 04/24/18 Range/Units 06:44 06:44 Plt Count 133 L (150-450) k/uL Glucose 112 H (74-99) mg/dL Assessment and Plan Plan: Assessment and plan #1 status post successful percutaneous closure of patent foramen ovale #2 history of TIA/CVA #3 hypercoagulability state Plan Patient may be discharged home today. We will make him a follow-up appointment to see Dr. Jon in the office post discharge. He will be discharged home on Lipitor 10 mg daily, Plavix 75 mg daily, Xarelto 15 mg by mouth twice a day for 3 weeks then 20 mg daily, aspirin will be discontinued. DNP note has been reviewed, I agree with a documented findings and plan of care. Patient was seen and examined.
[2018-04-24 11:48] VITALS: BP 122/85; PULSE 84; RESP 16; TEMP 98.1
--- NOTE | 2018-04-24 15:11 | ECHOF ---
Referral Reason:chest pain post PFO MEASUREMENTS -------- HEIGHT: 177.8 cm WEIGHT: 106.6 kg BP: IVSd: 1.2 cm (0.6 - 1.1) LVIDd: 3.8 cm (3.9 - 5.3) LVPWd: 1.1 cm (0.6 - 1.1) IVSs: 1.4 cm LVIDs: 2.1 cm LVPWs: 1.7 cm Ao Diam: 3.5 cm (2.0 - 3.7) AV Cusp: 2.4 cm (1.5 - 2.6) LA Diam: 3.1 cm (2.7 - 3.8) MV EXCURSION: 23.080 mm (> 18.000) MV EF SLOPE: 158 mm/s (70 - 150) EPSS: 0.5 cm MV E Inder: 0.71 m/s MV DecT: 249 ms MV A Inder: 0.48 m/s MV E/A Ratio: 1.47 RAP: 5.00 mmHg RVSP: 10.33 mmHg FINDINGS -------- Sinus rhythm. This was a technically good study. The left ventricular size is normal. Left ventricular wall thickness is normal. Overall left vent ricular systolic function is normal with, an EF between 55 - 60 %. The right ventricle is normal in size and function. The left atrium is normal in size. Atrial septal device is in place without shunt. The right atrium is normal in size. There is an interatrial closure device in place without evidence of shunt. The aortic valve is trileaflet, and appears structurally normal. No aortic stenosis or regurgitation. There is trace mitral regurgitation. Trace tricuspid regurgitation present. The right ventricular systolic pressure, as measured by Dopp ler, is 10.33mmHg. Pulmonic valve appears structurally normal. There is a trivial pericardial effusion present. CONCLUSIONS -------- 1. Sinus rhythm. 2. This was a technically good study. 3. The left ventricular size is normal. 4. Left ventricular wall thickness is normal. 5. Overall left ventricular systolic function is normal with, an EF between 55 - 60 %. 6. The right ventricle is normal in size and function. 7. The left atrium is normal in size. 8. Atrial septal device is in place without shunt. 9. The right atrium is normal in size. 10. There is an interatrial closure device in place without evidence of shunt. 11. The aortic valve is trileaflet, and appears structurally normal. No aortic stenosis or regurgitat ion. 12. There is trace mitral regurgitation. 13. Trace tricuspid regurgitation present. 14. The right ventricular systolic pressure, as measured by Doppler, is 10.33mmHg. 15. Pulmonic valve appears structurally normal. 16. There is a trivial pericardial effusion present. [employer]: Helen Lou RDCS
[2018-04-24] MEDS ORDERED: RIVAROXABAN 20 MG TAB PO SCH (17:30)
== END 2018-04-24 14:00 | disposition home or self-care (01) ==
LOC: CATHCVL 08:40 → 6SEL 11:30 → CATHCVL 04-24 14:00
PROVIDERS: ATTEND Internal Medicine Interventional Cardiology
DX: Q21.1 Atrial septal defect (principal); I08.1 Rheumatic disorders of both mitral and tricuspid valves; E78.5 Hyperlipidemia, unspecified; D68.59 Other primary thrombophilia; Z86.73 Personal history of transient ischemic attack (TIA), and cerebral infarction without residual deficits; Z82.49 Family history of ischemic heart disease and other diseases of the circulatory system; Z79.01 Long term (current) use of anticoagulants; Z79.02 Long term (current) use of antithrombotics/antiplatelets; Z79.899 Other long term (current) drug therapy
CPT/HCPCS: 93306; 93580; 93662; 85347; 86900; 86901; 80048; 85025; 86850; 71045; 71046; C1769 ×3; C1894; C1817; C1759; J2250; J2001; J3010; J2270; J1644; J0690; Q9967

== ENCOUNTER → 2019-01-03 | Outpatient (CLI) | payer BC ==
--- NOTE | 2019-01-03 12:17 | US ---
EXAMINATION TYPE: US venous doppler duplex LE BI DATE OF EXAM: 01/03/2019 10:46 AM COMPARISON: NONE CLINICAL HISTORY: 33-year-old male G45.9 Transient cerebral ischemic attack,. TIA, patient states no symptoms, off blood thinners for the past 5 weeks SIDE PERFORMED: Bilateral TECHNIQUE: The lower extremity deep venous system is examined utilizing real time linear array sonog margot with graded compression, doppler sonography and color-flow sonography. FINDINGS: VESSELS IMAGED: External Iliac Vein (EIV) Common Femoral Vein Deep Femoral Vein Greater Saphenous Vein * Femoral Vein Popliteal Vein Small Saphenous Vein * Proximal Calf Veins (* superficial vessels) Right Leg: Appears negative for DVT Left Leg: Appears negative for DVT IMPRESSION: No evidence for DVT within the bilateral lower extremities imaged from the groin to the upper calves.
== END ==
LOC: RADUSWWP 10:20
PROVIDERS: ATTEND Internal Medicine Hematology & Oncology
DX: G45.9 Transient cerebral ischemic attack, unspecified (principal); D68.59 Other primary thrombophilia; Z91.013 Allergy to seafood
CPT/HCPCS: 93970

== ENCOUNTER → 2019-04-27 | Outpatient (CLI) | payer BC | END | disposition home or self-care (01) | LOC: LABWHC1 12:42 | PROVIDERS: ATTEND Nurse Practitioner | DX: F31.81 Bipolar II disorder (principal) | CPT/HCPCS: 36415; 80183 ==

== ENCOUNTER 2019-10-03 16:53 | Emergency (ER) | payer BC ==
[2019-10-03 17:00] VITALS: BP 136/78; PULSE 80; RESP 16; TEMP 98
[2019-10-03] MEDS ORDERED: DEXAMETHASONE SOD PHOSPHATE 4 MG/ML 1 ML VIAL IV STA (17:33)
[2019-10-03] MEDS ORDERED: KETOROLAC 30 MG/ML 1 ML VIAL IVP STA (17:34)
--- NOTE | 2019-10-03 17:41 | ED ---
ENT HPI - General Source: patient Mode of arrival: ambulatory Limitations: no limitations <Lili Mccloud - Last Filed: 10/03/19 19:39> <Paige Moore - Last Filed: 10/04/19 23:27> - General Chief complaint: ENT Stated complaint: sore throat Time Seen by Provider: 10/03/19 17:07 - History of Present Illness Initial comments: 34-year-old male presenting today for chief complaint of sore throat swelling of uvula x 2 days. Patient states he has had sore throat for the past 2 days he states his uvula is not enlarged and red causing him to gag sometimes. Patient denies any difficulty breathing he states he is able to swallow and tolerate oral intake. Patient states he noticed white stuff on his tonsils. Patient states he has had chills has not recorded a fever. Patient denies any headache neck pain and stiffness cough congestion or other associated symptoms. Benzo withdrawal persisted today she presents emergency department for further evaluation. Patient states his daughter had similar symptoms but this was approximately one month ago. (Lili Mccloud) - Related Data Home Medications Medication Instructions Recorded Confirmed Acetaminophen [Tylenol] 650 mg PO Q4H 04/23/18 04/23/18 Previous Rx's Medication Instructions Recorded Atorvastatin [Lipitor] 10 mg PO DAILY #30 tab 04/02/18 Clopidogrel [Plavix] 75 mg PO DAILY #30 tab 04/02/18 Rivaroxaban [Xarelto] 20 mg PO W/SUPPER #30 tab 04/24/18 Amoxicillin 500 mg PO Q12HR 10 Days #20 cap 10/03/19 Allergies Allergy/AdvReac Type Severity Reaction Status Date / Time shellfish derived [Shellfish] Allergy Nausea & Verified 10/03/19 16:58 Vomiting Review of Systems ROS Other: All systems not noted in ROS Statement are negative. <Lili Mccloud - Last Filed: 10/03/19 19:39> ROS Other: All systems not noted in ROS Statement are negative. <Paige Moore - Last Filed: 10/04/19 23:27> ROS Statement: Those systems with pertinent positive or pertinent negative responses have been documented in the HPI. Past Medical History Past Medical History: CVA/TIA Additional Past Medical History / Comment(s): rt inguinal hernia,states "small hole found in my heart on an echocardiogram and being monitored every 6 mos", c /o increased heart burn last few months hypoglycemia, kidney stones,pt stated in 2017 had episode during the night where he had pain behind rt ear up to confucianist felt like needle being jammed in his head and he could'nt move his body except rt arm in nuding motion to wake his . that last approx 30 min.after symptoms subsided he then developed slurred speech and memory problems that lasted few months.when he did seek help he was told it was anxiety/stress/depression. STATES SINCE HAS HAD OCCASIONAL STUTTERING History of Any Multi-Drug Resistant Organisms: None Reported Past Surgical History: Hernia Repair Additional Past Surgical History / Comment(s): ROEL, rt inguinal hernia repair, lt testes descended , as also had hernia repiar Testicular retreval (left) about 21 years ago Past Anesthesia/Blood Transfusion Reactions: No Reported Reaction Additional Past Anesthesia/Blood Transfusion Reaction / Comment(s): no hx blood transfusion Past Psychological History: Anxiety Smoking Status: Former smoker Past Alcohol Use History: Occasional Past Drug Use History: None Reported - Past Family History Mother Family Medical History: Hypertension Additional Family Medical History / Comment(s): grandfather had stroke DM Father Family Medical History: CVA/TIA Additional Family Medical History / Comment(s): grandfather had stroke <Lili Mccloud - Last Filed: 10/03/19 19:39> General Exam Limitations: no limitations <Lili Mccloud - Last Filed: 10/03/19 19:39> - General Exam Comments Initial Comments: General: The patient is awake and alert, in no distress Eye: +3 mm pupils are equal, round and reactive to light, extra-ocular movements are intact. No nystagmus. There is normal conjunctiva bilaterally. No signs of icterus. No photophobia Ears, nose, mouth and throat: There are moist mucous membranes and no oral lesions. Oropharynx was erythematous with b/l tonsillar enlargement and exudates, swelling of the right tonsil increased in comparision with the left. Uvula midline enlarged and erythematous. Tympanic membranes are not erythematous or is no effusions bulging or retraction. No tenderness to palpation of the mastoid. No anterior cervical lymphadenopathy. Rhinorrhea, clear and bilateral nares. No tripoding, no drooling. Neck: The neck is supple, there is no tenderness or JVD. No nuchal rigidity Cardiovascular: There is a regular rate and rhythm. No murmur, rub or gallop is appreciated. Respiratory: Lungs are clear to auscultation, respirations are non-labored, breath sounds are equal. No wheezes, stridor, rales, or rhonchi. No retractions or abdominal breathing. Gastrointestinal: Soft, non-distended, non-tender abdomen without masses or organomegaly noted. There is no rebound or guarding present. Bowel sounds are unremarkable. Musculoskeletal: Normal ROM, no tenderness. Strength 5/5. Sensation intact. Radial pulses equal bilaterally 2+. Neurological: A&O x 3. CN II-XII intact grossly, There are no obvious motor or sensory deficits. Coordination appears grossly intact. Speech appears normal, no muffling. Skin: Skin is warm and dry and no rashes or lesions are noted. No extremity edema Psychiatric: Cooperative (Lili Mccloud) Course Vital Signs 10/03/19 16:58 Temperature 98 F Pulse Rate 80 Respiratory 16 Rate Blood Pressure 136/78 O2 Sat by Pulse 96 Oximetry Medical Decision Making - Lab Data Result diagrams: 10/03/19 17:48 10/03/19 17:48 <Lili Mcclodu - Last Filed: 10/03/19 19:39> - Lab Data Result diagrams: 10/03/19 17:48 10/03/19 17:48 <Paige Moore - Last Filed: 10/04/19 23:27> - Medical Decision Making 34-year-old male presenting for throat pain exudates tonsillar enlargement with slight right tonsil enlargement greater than the left. Uvula is midline however enlarged and erythematous. Given the concern for the increase in the right tonsil is no left I want to rule out peritonsillar abscess. CT negative for abscess tonsillar enlargement noted had a foul negative rapid strep negative culture pending given the exudates and patient's symptomology and concern for possible strep pharyngitis patient be treated amoxicillin. Case discussed with attending provider and return parameters discussed with patient verbalized understanding he'll be discharged with primary care follow-up (Lili Mccloud) I was available for consultation in the emergency department. The history and physical exam were done by the midlevel provider. I was consulted for this patients care. I reviewed the case with the midlevel provider and based on their presentation of the patient, I agree with the assessment, medical decision making and plan of care as documented. Chart was dictated using [id number] dictation software. Attempts were made to c orrect any dictation errors however some typographical errors may persist. (Paige Moore) - Lab Data Lab Results 10/03/19 10/03/19 10/03/19 Range/Units 17:48 17:48 17:48 WBC 7.1 (3.8-10.6) k/uL RBC 5.91 H (4.30-5.90) m/uL Hgb 17.2 (13.0-17.5) gm/dL Hct 52.5 (39.0-53.0) % MCV 88.8 (80.0-100.0) fL MCH 29.2 (25.0-35.0) pg MCHC 32.8 (31.0-37.0) g/dL RDW 12.6 (11.5-15.5) % Plt Count 172 (150-450) k/uL Neutrophils % 74 % Lymphocytes % 17 % Monocytes % 6 % Eosinophils % 1 % Basophils % 1 % Neutrophils # 5.2 (1.3-7.7) k/uL Lymphocytes # 1.2 (1.0-4.8) k/uL Monocytes # 0.4 (0-1.0) k/uL Eosinophils # 0.1 (0-0.7) k/uL Basophils # 0.0 (0-0.2) k/uL Sodium 139 (137-145) mmol/L Potassium 4.5 (3.5-5.1) mmol/L Chloride 107 (98-107) mmol/L Carbon Dioxide 27 (22-30) mmol/L Anion Gap 5 mmol/L BUN 18 (9-20) mg/dL Creatinine 1.08 (0.66-1.25) mg/dL Est GFR (CKD-EPI)AfAm >90 (>60 ml/min/1.73 sqM) Est GFR (CKD-EPI)NonAf >90 (>60 ml/min/1.73 sqM) Glucose 86 (74-99) mg/dL Calcium 9.6 (8.4-10.2) mg/dL Heterophile Antibody (Negative) Group A Strep Rapid Negative (Negative) 10/03/19 Range/Units 17:48 WBC (3.8-10.6) k/uL RBC (4.30-5.90) m/uL Hgb (13.0-17.5) gm/dL Hct (39.0-53.0) % MCV (80.0-100.0) fL MCH (25.0-35.0) pg MCHC (31.0-37.0) g/dL RDW (11.5-15.5) % Plt Count (150-450) k/uL Neutrophils % % Lymphocytes % % Monocytes % % Eosinophils % % Basophils % % Neutrophils # (1.3-7.7) k/uL Lymphocytes # (1.0-4.8) k/uL Monocytes # (0-1.0) k/uL Eosinophils # (0-0.7) k/uL Basophils # (0-0.2) k/uL Sodium (137-145) mmol/L Potassium (3.5-5.1) mmol/L Chloride (98-107) mmol/L Carbon Dioxide (22-30) mmol/L Anion Gap mmol/L BUN (9-20) mg/dL Creatinine (0.66-1.25) mg/dL Est GFR (CKD-EPI)AfAm (>60 ml/min/1.73 sqM) Est GFR (CKD-EPI)NonAf (>60 ml/min/1.73 sqM) Glucose (74-99) mg/dL Calcium (8.4-10.2) mg/dL Heterophile Antibody Negative (Negative) Group A Strep Rapid (Negative) Disposition Is patient prescribed a controlled substance at d/c from ED?: No Time of Disposition: 18:34 <Lili Mccloud - Last Filed: 10/03/19 19:39> <Paige Moore - Last Filed: 10/04/19 23:27> Clinical Impression: Pharyngitis, Uvulitis Disposition: HOME SELF-CARE Condition: Good Instructions (If sedation given, give patient instructions): Pharyngitis (ED), Uvulitis (ED) Additional Instructions: Please use medication as discussed. Please follow-up with family doctor in the next 2 days.. Please return to emergency room if the symptoms increase or worsen or for any other concerns. Prescriptions: Amoxicillin 500 mg PO Q12HR 10 Days #20 cap Referrals: None,Stated [Primary Care Provider] - 1-2 days
[2019-10-03 18:03] LABS: Basophils % (A) 1 %; Eosinophils # (A) 0.1 k/uL (0-0.7); Eosinophils % (A) 1 %; HCT 52.5 % (39.0-53.0); HGB 17.2 gm/dL (13.0-17.5); Lymphocytes # (A) 1.2 k/uL (1.0-4.8); Lymphocytes % (A) 17 %; MCH 29.2 pg (25.0-35.0); MCHC 32.8 g/dL (31.0-37.0); MCV 88.8 fL (80.0-100.0); Mean Platelet Volume 9.3; Monocytes # (A) 0.4 k/uL (0-1.0); Monocytes % (A) 6 %; Neutrophils # (A) 5.2 k/uL (1.3-7.7); Neutrophils % (A) 74 %; Platelet Count 172 k/uL (150-450); RBC 5.91 m/uL (4.30-5.90); RDW 12.6 % (11.5-15.5); WBC 7.1 k/uL (3.8-10.6)
[2019-10-03 18:10] LABS: African American GFR (CKD) >90 (>60 ml/min/1.73 sqM); Anion Gap 5 mmol/L; Blood Urea Nitrogen 18 mg/dL (9-20); Calcium 9.6 mg/dL (8.4-10.2); Carbon Dioxide 27 mmol/L (22-30); Chloride 107 mmol/L (98-107); Glucose 86 mg/dL (74-99); Non-African American GFR(CKD) >90 (>60 ml/min/1.73 sqM); Potassium 4.5 mmol/L (3.5-5.1); Sodium 139 mmol/L (137-145)
--- NOTE | 2019-10-03 18:20 | CT ---
EXAMINATION TYPE: CT soft tissue neck w con DATE OF EXAM: 10/03/2019 COMPARISON: None HISTORY: Sore throat x 2 days. Possible right sided peritonsillar abscess. CT DLP: 307.4 mGycm Automated exposure control for dose reduction was used. CONTRAST: Performed with IV Contrast, patient injected with 100 mL of Isovue 300. Upper lung nicole are clear. Superior mediastinum appears normal. There is no adenopathy. There is no rmal branching pattern of the great vessels on the aortic arch. Thyroid gland appears normal. Trachea appears normal. Epiglottis is normal. The adenoids appear normal. There is symmetric enlargement of the tonsils. I see no pathologic fluid collection. Tonsils measures 4.8 x 2.4 cm. Prevertebral soft t issues in the cervical spine appear within normal limits. There are anterior and posterior triangle c ervical lymph nodes that measure less than 1 cm. Cervical spine is intact. Skull base is intact. Ther e is fairly normal aeration of the paranasal sinuses. Mastoid sinuses appear normal. IMPRESSION: Bilateral enlargement of the tonsils. No tonsillar abscess seen. Normal adenoids. Normal epiglottis.
== END 2019-10-03 18:59 | disposition home or self-care (01) ==
LOC: EC 16:53
DX: J02.9 Acute pharyngitis, unspecified (principal); K12.2 Cellulitis and abscess of mouth; Z79.899 Other long term (current) drug therapy; Z91.013 Allergy to seafood; Z87.891 Personal history of nicotine dependence; Z86.73 Personal history of transient ischemic attack (TIA), and cerebral infarction without residual deficits
CPT/HCPCS: 36415; 80048; 85025; 86308; 87081; 87430; 70491; 99284; 96374; 96375; J1100; J1885; Q9967

== ENCOUNTER 2019-11-18 16:30 | Emergency (ER) | payer BC ==
[2019-11-18] MEDS ORDERED: SODIUM CHLORIDE 0.9% 1,000 ML IV STA (17:31)
--- NOTE | 2019-11-18 17:31 | ED ---
Abdominal Pain HPI - General Chief Complaint: Abdominal Pain Stated Complaint: Stomach pain Time Seen by Provider: 11/18/19 17:21 Source: patient Mode of arrival: ambulatory Limitations: no limitations - History of Present Illness Initial Comments: Patient is a 34-year-old male presenting to the emergency department with a chief complaint of abdominal pain. Patient reports his symptoms began about one week ago and there located mostly in the epigastric and left upper quadrant region. Patient does report intermittent nausea but denies any vomiting or diarrhea. Patient reports changes in bowel pattern but denies any constipation. Does report some abdominal bloating. He denies any chest pain, shortness of breath or back pain. States the pain is not related to by mouth intake. Denies testicular pain, swelling, penile discharge or tenderness. Denies urinary symptoms. Denies hematuria, hematochezia or melena. - Related Data Home Medications Medication Instructions Recorded Confirmed Acetaminophen [Tylenol] 650 mg PO Q4H 04/23/18 04/23/18 Previous Rx's Medication Instructions Recorded Atorvastatin [Lipitor] 10 mg PO DAILY #30 tab 04/02/18 Clopidogrel [Plavix] 75 mg PO DAILY #30 tab 04/02/18 Rivaroxaban [Xarelto] 20 mg PO W/SUPPER #30 tab 04/24/18 Amoxicillin 500 mg PO Q12HR 10 Days #20 cap 10/03/19 Allergies Allergy/AdvReac Type Severity Reaction Status Date / Time shellfish derived [Shellfish] Allergy Nausea & Verified 11/18/19 16:49 Vomiting Review of Systems ROS Statement: Those systems with pertinent positive or pertinent negative responses have been documented in the HPI. ROS Other: All systems not noted in ROS Statement are negative. Past Medical History Past Medical History: CVA/TIA Additional Past Medical History / Comment(s): rt inguinal hernia,states "small h ole found in my heart on an echocardiogram and being monitored every 6 mos", c/o increased heart burn last few months hypoglycemia, kidney stones,pt stated in 2017 had episode during the night where he had pain behind rt ear up to rastafarian felt like needle being jammed in his head and he could'nt move his body except rt arm in nuding motion to wake his . that last approx 30 min.after symptoms subsided he then developed slurred speech and memory problems that lasted few months.when he did seek help he was told it was anxiety/stress/depression. STATES SINCE HAS HAD OCCASIONAL STUTTERING History of Any Multi-Drug Resistant Organisms: None Reported Past Surgical History: Hernia Repair Additional Past Surgical History / Comment(s): ROEL, rt inguinal hernia repair, lt testes descended , as also had hernia repiar Testicular retreval (left) about 21 years ago Past Anesthesia/Blood Transfusion Reactions: No Reported Reaction Additional Past Anesthesia/Blood Transfusion Reaction / Comment(s): no hx blood transfusion Past Psychological History: Anxiety Smoking Status: Former smoker Past Alcohol Use History: Occasional Past Drug Use History: None Reported - Past Family History Mother Family Medical History: Hypertension Additional Family Medical History / Comment(s): grandfather had stroke DM Father Family Medical History: CVA/TIA Additional Family Medical History / Comment(s): grandfather had stroke General Exam Limitations: no limitations General appearance: alert, in no apparent distress Head exam: Present: atraumatic, normocephalic, normal inspection Eye exam: Present: normal appearance Pupils: Present: normal accommodation ENT exam: Present: normal exam Neck exam: Present: normal inspection, full ROM Respiratory exam: Present: normal lung sounds bilaterally Cardiovascular Exam: Present: regular rate, normal rhythm, normal heart sounds GI/Abdominal exam: Present: soft, tenderness (Epigastric and left upper quadrant tenderness). Absent: distended, guarding, rebound, rigid Extremities exam: Present: normal inspection, full ROM Back exam: Present: normal inspection, full ROM Neurological exam: Present: alert, oriented X3 Psychiatric exam: Present: normal affect, normal mood Skin exam: Present: warm, dry, intact, normal color Course Vital Signs 11/18/19 16:45 Temperature 98.9 F Pulse Rate 83 Respiratory 20 Rate Blood Pressure 143/87 O2 Sat by Pulse 96 Oximetry Medical Decision Making - Medical Decision Making Patient is a 34-year-old male presenting to emergency Department with a chief complaint of abdominal pain. This is been ongoing for about one week with some intermittent nausea but no vomiting or diarrhea. On exam patient does have epigastric left upper quadrant abdominal tenderness. Patient given fluids, antiemetics and a GI cocktail. Reevaluation patient reports some improvement in his symptoms but they have not completely resolved. Patient rated finished 1 week of Prilosec daily. I suspect the patient has developed gastritis causing his symptoms. Patient denies follow with a GI specialist of the symptoms continue. Patient will be discharged with Zofran. Vitals are stable. Laboratory work is unremarkable. Strict return parameters were thoroughly discussed patient is understanding and agreeable. Case discussed with physician. - Lab Data Result diagrams: 11/18/19 17:40 11/18/19 17:40 Lab Results 11/18/19 11/18/19 11/18/19 Range/Units 17:40 17:40 18:15 WBC 9.1 (3.8-10.6) k/uL RBC 6.03 H (4.30-5.90) m/uL Hgb 17.5 (13.0-17.5) gm/dL Hct 53.0 (39.0-53.0) % MCV 88.0 (80.0-100.0) fL MCH 29.0 (25.0-35.0) pg MCHC 33.0 (31.0-37.0) g/dL RDW 12.4 (11.5-15.5) % Plt Count 172 (150-450) k/uL Neutrophils % 76 % Lymphocytes % 15 % Monocytes % 5 % Eosinophils % 2 % Basophils % 2 % Neutrophils # 6.9 (1.3-7.7) k/uL Lymphocytes # 1.3 (1.0-4.8) k/uL Monocytes # 0.4 (0-1.0) k/uL Eosinophils # 0.2 (0-0.7) k/uL Basophils # 0.2 (0-0.2) k/uL Sodium 138 (137-145) mmol/L Potassium 4.2 (3.5-5.1) mmol/L Chloride 106 (98-107) mmol/L Carbon Dioxide 24 (22-30) mmol/L Anion Gap 8 mmol/L BUN 19 (9-20) mg/dL Creatinine 0.99 (0.66-1.25) mg/dL Est GFR (CKD-EPI)AfAm >90 (>60 ml/min/1.73 sqM) Est GFR (CKD-EPI)NonAf >90 (>60 ml/min/1.73 sqM) Glucose 91 (74-99) mg/dL Calcium 9.8 (8.4-10.2) mg/dL Total Bilirubin 1.0 (0.2-1.3) mg/dL AST 23 (17-59) U/L ALT 24 (4-49) U/L Alkaline Phosphatase 87 (38-126) U/L Total Protein 7.8 (6.3-8.2) g/dL Albumin 4.6 (3.5-5.0) g/dL Amylase 54 (30-110) U/L Lipase 66 (23-300) U/L Urine Color Yellow Urine Appearance Clear (Clear) Urine pH 6.0 (5.0-8.0) Ur Specific Lynd 1.026 (1.001-1.035) Urine Protein Negative (Negative) Urine Glucose (UA) Negative (Negative) Urine Ketones 1+ H (Negative) Urine Blood Negative (Negative) Urine Nitrite Negative (Negative) Urine Bilirubin Negative (Negative) Urine Urobilinogen <2.0 (<2.0) mg/dL Ur Leukocyte Esterase Negative (Negative) Disposition Clinical Impression: Gastritis, Abdominal pain Disposition: HOME SELF-CARE Condition: Stable Instructions (If sedation given, give patient instructions): Gastritis (DC) Additional Instructions: Please follow up with primary care. Return to emergency department if symptoms worsen. Take prescribed medication as directed. Is patient prescribed a controlled substance at d/c from ED?: No Referrals: Daniela Eugene MD [REFERRING] - 1-2 days Time of Disposition: 19:12
[2019-11-18] MEDS ORDERED: MAG HYDROX/AL HYDROX/SIMETH 30 ML, HYOSCYAMINE ELIXIR 10 ML, LIDOCAINE VISCOUS 2% 10 ML PO STA ×3 (17:32)
[2019-11-18 17:48] LABS: Basophils # (A) 0.2 k/uL (0-0.2); Basophils % (A) 2 %; Eosinophils # (A) 0.2 k/uL (0-0.7); Eosinophils % (A) 2 %; HGB 17.5 gm/dL (13.0-17.5); Lymphocytes # (A) 1.3 k/uL (1.0-4.8); Lymphocytes % (A) 15 %; Mean Platelet Volume 9.8; Monocytes # (A) 0.4 k/uL (0-1.0); Monocytes % (A) 5 %; Neutrophils # (A) 6.9 k/uL (1.3-7.7); Neutrophils % (A) 76 %; Platelet Count 172 k/uL (150-450); RBC 6.03 m/uL (4.30-5.90); RDW 12.4 % (11.5-15.5); WBC 9.1 k/uL (3.8-10.6)
[2019-11-18 17:59] LABS: ALT 24 U/L (4-49); AST 23 U/L (17-59); African American GFR (CKD) >90 (>60 ml/min/1.73 sqM); Albumin 4.6 g/dL (3.5-5.0); Alkaline Phosphatase 87 U/L (38-126); Amylase 54 U/L (30-110); Anion Gap 8 mmol/L; Blood Urea Nitrogen 19 mg/dL (9-20); Calcium 9.8 mg/dL (8.4-10.2); Carbon Dioxide 24 mmol/L (22-30); Chloride 106 mmol/L (98-107); Glucose 91 mg/dL (74-99); Non-African American GFR(CKD) >90 (>60 ml/min/1.73 sqM); Potassium 4.2 mmol/L (3.5-5.1); Sodium 138 mmol/L (137-145); Total Protein 7.8 g/dL (6.3-8.2)
[2019-11-18 18:32] LABS: Appearance,Urine Clear (Clear); Bilirubin,Urine Negative (Negative); Blood,Urine Negative (Negative); Color,Urine Yellow; Glucose,Urine (UA) Negative (Negative); Ketones,Urine 1+ (Negative); Leukocyte Esterase,Urine Negative (Negative); Nitrite,Urine Negative (Negative); Protein,Urine Negative (Negative); Specific Gravity,Urine 1.026 (1.001-1.035); Urobilinogen,Urine <2.0 mg/dL (<2.0)
[2019-11-18 19:46] VITALS: BP 131/90; PULSE 87; RESP 18; TEMP 98.5
== END 2019-11-18 19:45 | disposition home or self-care (01) ==
LOC: EC 16:30
DX: K29.70 Gastritis, unspecified, without bleeding (principal); Z87.891 Personal history of nicotine dependence; Z91.013 Allergy to seafood
CPT/HCPCS: 36415; 80053; 81003; 82150; 83690; 85025; 96360; 96361; 99284

== ENCOUNTER 2020-05-14 21:49 | Emergency (ER) | payer BC ==
[2020-05-14 21:54] VITALS: TEMP 98.2
--- NOTE | 2020-05-14 22:09 | ED ---
General Adult HPI - General Chief complaint: Chest Pain Stated complaint: Chest Pains Time Seen by Provider: 05/14/20 21:55 Source: patient Mode of arrival: ambulatory Limitations: no limitations - History of Present Illness Initial comments: Dictation was produced using [employer] dictation software. please excuse any grammatical, word or spelling errors. This patient was cared for during a federal and state declared state of emergency secondary to Covid 19 Chief Complaint: 34-year-old male past medical history of patent foramen ovale, CVAs presents with chest pain History of Present Illness: 34-year-old male he states that he has history of blood clots, strokes and patent foramen ovale. Patient reports that he's been having sharp chest pain to the left anterior chest that has been ongoing for the last couple days. Reports that the pain is getting worse prompting him to come to the emergency department. Patient does not have any shortness of breath. He states that he does feel pain that's especially worse when he gets to the end of the breath. Reports he has a history of blood clots. Denies any lower extremity symptoms. States that is not reproducible with movement or palpation. The ROS documented in this emergency department record has been reviewed and confirmed by me. Those systems with pertinent positive or negative responses have been documented in the HPI. All other systems are other negative and/or noncontributory. PHYSICAL EXAM: General Impression: Alert and oriented x3, not in acute distress HEENT: Normocephalic atraumatic, extra-ocular movements intact, pupils equal and reactive to light bilaterally, mucous membranes moist. Cardiovascular: Heart regular rate and rhythm Chest: Able to complete full sentences, no retractions, no tachypnea Abdomen: abdomen soft, non-tender, non-distended, no organomegaly Musculoskeletal: Pulses present and equal in all extremities, no peripheral edema Motor: no focal deficits noted Neurological: CN II-XII grossly intact, no focal motor or sensory deficits noted Skin: Intact with no visualized rashes Psych: Normal affect and mood ED course: 34-year-old male presents with pleuritic chest pain. Ends upon arrival are within acceptable limits. Patient's well-appearing at bedside. Patient reports a history of blood clots. Laboratory evaluation obtained. CBC, coag panel, d-dimer is negative. Metabolic panel is negative. Chest x-ray shows no acute processes. Patient's coca presentation likely musculoskeletal chest pain. Patient clear for d ischarge. Patient given Lidoderm patch. EKG interpretation: Ventricular rate 67, sinus rhythm, TN interval 160, QRS 94, QTc 384. No TN prolongation, no QTC prolongation, no ST or T-wave changes noted. . Overall, this EKG is unremarkable - Related Data Home Medications Medication Instructions Recorded Confirmed Aspirin EC [Ecotrin Low Dose] 81 mg PO DAILY 05/14/20 05/14/20 Allergies Allergy/AdvReac Type Severity Reaction Status Date / Time shellfish derived [Shellfish] Allergy Nausea & Verified 05/14/20 22:48 Vomiting Review of Systems ROS Statement: Those systems with pertinent positive or pertinent negative responses have been documented in the HPI. ROS Other: All systems not noted in ROS Statement are negative. Past Medical History Past Medical History: CVA/TIA Additional Past Medical History / Comment(s): rt inguinal hernia,states "small hole found in my heart on an echocardiogram" History of Any Multi-Drug Resistant Organisms: None Reported Past Surgical History: Hernia Repair Additional Past Surgical History / Comment(s): ROEL, rt inguinal hernia repair, lt testes descended , as also had hernia repiar Testicular retreval (left) about 21 years ago Past Anesthesia/Blood Transfusion Reactions: No Reported Reaction Additional Past Anesthesia/Blood Transfusion Reaction / Comment(s): no hx blood transfusion Past Psychological History: Anxiety Smoking Status: Never smoker Past Alcohol Use History: Occasional Past Drug Use History: None Reported - Past Family History Mother Family Medical History: Hypertension Additional Family Medical History / Comment(s): grandfather had stroke DM Father Family Medical History: CVA/TIA Additional Family Medical History / Comment(s): grandfather had stroke General Exam Limitations: no limitations Course Vital Signs 05/14/20 21:50 Temperature 98.2 F Pulse Rate 74 Respiratory 18 Rate Blood Pressure 156/96 O2 Sat by Pulse 99 Oximetry Medical Decision Making - Lab Data Result diagrams: 05/14/20 22:08 05/14/20 22:08 Lab Results 05/14/20 05/14/20 05/14/20 Range/Units 22:08 22:08 22:08 WBC 9.9 (3.8-10.6) k/uL RBC 5.55 (4.30-5.90) m/uL Hgb 16.4 (13.0-17.5) gm/dL Hct 49.6 (39.0-53.0) % MCV 89.3 (80.0-100.0) fL MCH 29.5 (25.0-35.0) pg MCHC 33.1 (31.0-37.0) g/dL RDW 13.1 (11.5-15.5) % Plt Count 176 (150-450) k/uL Neutrophils % 68 % Lymphocytes % 24 % Monocytes % 5 % Eosinophils % 1 % Basophils % 0 % Neutrophils # 6.7 (1.3-7.7) k/uL Lymphocytes # 2.4 (1.0-4.8) k/uL Monocytes # 0.5 (0-1.0) k/uL Eosinophils # 0.1 (0-0.7) k/uL Basophils # 0.0 (0-0.2) k/uL PT 10.2 (9.0-12.0) sec INR 1.0 (<1.2) APTT 24.3 (22.0-30.0) sec D-Dimer 0.28 (<0.60) mg/L FEU Sodium 139 (137-145) mmol/L Potassium 4.1 (3.5-5.1) mmol/L Chloride 106 (98-107) mmol/L Carbon Dioxide 25 (22-30) mmol/L Anion Gap 8 mmol/L BUN 17 (9-20) mg/dL Creatinine 1.09 (0.66-1.25) mg/dL Est GFR (CKD-EPI)AfAm >90 (>60 ml/min/1.73 sqM) Est GFR (CKD-EPI)NonAf 89 (>60 ml/min/1.73 sqM) Glucose 87 (74-99) mg/dL Calcium 9.8 (8.4-10.2) mg/dL Disposition Clinical Impression: Pleurisy Disposition: HOME SELF-CARE Condition: Good Instructions (If sedation given, give patient instructions): Chest Pain (ED) Is patient prescribed a controlled substance at d/c from ED?: No Referrals: Daniela Eugene MD [Primary Care Provider] - 1-2 days Time of Disposition: 22:53
[2020-05-14 22:29] LABS: Basophils % (A) 0 %; Eosinophils # (A) 0.1 k/uL (0-0.7); Eosinophils % (A) 1 %; HCT 49.6 % (39.0-53.0); HGB 16.4 gm/dL (13.0-17.5); Lymphocytes # (A) 2.4 k/uL (1.0-4.8); Lymphocytes % (A) 24 %; MCH 29.5 pg (25.0-35.0); MCHC 33.1 g/dL (31.0-37.0); MCV 89.3 fL (80.0-100.0); Mean Platelet Volume 9.4; Monocytes # (A) 0.5 k/uL (0-1.0); Monocytes % (A) 5 %; Neutrophils # (A) 6.7 k/uL (1.3-7.7); Neutrophils % (A) 68 %; Platelet Count 176 k/uL (150-450); RBC 5.55 m/uL (4.30-5.90); RDW 13.1 % (11.5-15.5); WBC 9.9 k/uL (3.8-10.6)
[2020-05-14 22:36] LABS: African American GFR (CKD) >90 (>60 ml/min/1.73 sqM); Anion Gap 8 mmol/L; Blood Urea Nitrogen 17 mg/dL (9-20); Calcium 9.8 mg/dL (8.4-10.2); Carbon Dioxide 25 mmol/L (22-30); Chloride 106 mmol/L (98-107); Glucose 87 mg/dL (74-99); Non-African American GFR(CKD) 89 (>60 ml/min/1.73 sqM); Potassium 4.1 mmol/L (3.5-5.1); Sodium 139 mmol/L (137-145)
--- NOTE | 2020-05-14 22:36 | XR ---
EXAM: XR Chest, 2 Views CLINICAL HISTORY: ITS.REASON XR Reason: chest pain TECHNIQUE: Frontal and lateral views of the chest. COMPARISON: Chest x-ray dated 04/24/2018 FINDINGS: Lungs: Unremarkable. Pleural space: Unremarkable. Heart: Unremarkable. Mediastinum: Unremarkable. Bones/joints: Unremarkable. Tubes, lines and devices: Septal defect occlusion device is again noted. IMPRESSION: No acute findings in the chest.
[2020-05-14 22:47] LABS: D-Dimer 0.28 mg/L FEU (<0.60); Partial Thromboplastin Time 24.3 sec (22.0-30.0); Prothrombin Time 10.2 sec (9.0-12.0)
[2020-05-14 23:27] VITALS: BP 124/79; PULSE 53; RESP 17
== END 2020-05-14 23:27 | disposition home or self-care (01) ==
LOC: EC 21:49
DX: R09.1 Pleurisy (principal); Z79.82 Long term (current) use of aspirin; Z91.013 Allergy to seafood; Z86.718 Personal history of other venous thrombosis and embolism; Z86.73 Personal history of transient ischemic attack (TIA), and cerebral infarction without residual deficits; Z82.49 Family history of ischemic heart disease and other diseases of the circulatory system; Z87.74 Personal history of (corrected) congenital malformations of heart and circulatory system
CPT/HCPCS: 36415; 71046; 80048; 84484; 85025; 85379; 85610; 85730; 93005; 99285

== ENCOUNTER → 2020-11-09 | Outpatient (CLI) | payer BC ==
--- NOTE | 2020-11-09 22:04 | CT ---
EXAMINATION TYPE: CT chest w con DATE OF EXAM: 11/09/2020 COMPARISON: None HISTORY: chest pain and SOB CT DLP: 466.9 mGycm, Automated exposure control for dose reduction was used. CONTRAST: Performed injected with 100 mL of Isovue 300. TECHNIQUE: Axial images were obtained at 5 mm thick sections. Reconstructed images are reviewed on [employer] computer in the coronal plane. FINDINGS: Portion of the thyroid visualized is normal. No suspicious lung nodules or focal infiltrates are present. No enlarged mediastinal or hilar adenopathy is evident. The ascending aorta diameter at the level o f the main pulmonary artery is 2.9 cm. The main pulmonary artery diameter at the bifurcation is 2.[address] sections are obtained through the upper abdomen. Abdomen is essentially unremarkable. IMPRESSIONS: 1. Normal Chest CT.
--- NOTE | 2020-11-10 14:20 | US ---
EXAMINATION TYPE: US liver DATE OF EXAM: 11/09/2020 COMPARISON: NONE CLINICAL HISTORY: R94.5 ABN LIVER FUNCTION TESTING. Abnormal labs. Chest pain. EXAM MEASUREMENTS: Liver Length: 16.7 cm Gallbladder Wall: 0.1 cm CBD: 0.3 cm Right Kidney: 9.3 x 5.2 x 4.0 cm Pancreas: Tail obscured by overlying bowel gas Liver: Left lobe anterior hypoechoic vascular lesion - 4.6 x 5.1 x 4.4 cm. Gallbladder: wnl Evidence for sonographic Crabtree's sign: neg CBD: wnl, limited visualization due to overlying bowel gas Right Kidney: No hydronephrosis or masses seen IMPRESSION: 1. There is a roughly 5 cm mass in the inferior left portion of the liver. Neoplasm is not excluded. Additional workup with CT is recommended. 2. Mild fatty infiltration liver. Hepatomegaly is present.
== END | disposition home or self-care (01) ==
LOC: RADUSWWP 17:05
PROVIDERS: ATTEND Internal Medicine
DX: K76.89 Other specified diseases of liver (principal); K76.0 Fatty (change of) liver, not elsewhere classified; R16.0 Hepatomegaly, not elsewhere classified; R06.02 Shortness of breath; R07.9 Chest pain, unspecified
CPT/HCPCS: 76705; 71260; Q9967

== ENCOUNTER → 2020-11-14 | Outpatient (CLI) | payer BC ==
[2020-11-14 14:40] LABS: Basophils # (A) 0.1 k/uL (0-0.2); Basophils % (A) 1 %; Eosinophils # (A) 0.2 k/uL (0-0.7); Eosinophils % (A) 3 %; HCT 50.1 % (39.0-53.0); HGB 16.7 gm/dL (13.0-17.5); Lymphocytes # (A) 2.1 k/uL (1.0-4.8); Lymphocytes % (A) 22 %; MCH 29.7 pg (25.0-35.0); MCHC 33.3 g/dL (31.0-37.0); MCV 89.2 fL (80.0-100.0); Mean Platelet Volume 9.2; Monocytes # (A) 0.5 k/uL (0-1.0); Monocytes % (A) 6 %; Neutrophils # (A) 6.2 k/uL (1.3-7.7); Neutrophils % (A) 67 %; Platelet Count 191 k/uL (150-450); RBC 5.61 m/uL (4.30-5.90); WBC 9.2 k/uL (3.8-10.6)
[2020-11-14 16:23] LABS: INR 0.9 (<1.2); Prothrombin Time 9.9 sec (9.0-12.0)
[2020-11-14 20:15] LABS: Albumin 4.7 g/dL (3.80-4.90); Albumin/Globulin Ratio 2.35 (1.60-3.17); Bilirubin, Conjugated 0.2 mg/dL (0.20-0.40); Bilirubin,Unconjugated 0.3 mg/dL; Total Bilirubin 0.5 mg/dL (0.2-1.2); Total Protein 6.7 g/dL (6.2-8.2)
[2020-11-14 22:25] LABS: Alpha Fetoprotein, Tumor Mkr <2.5 ng/mL (0.0-7.9)
[2020-11-14 23:28] LABS: Hepatitis A Antibody IgM Non-Reactive (Non-Reactive); Hepatitis B Core IgM Non-Reactive (Non-Reactive); Hepatitis B Surface Antigen Non-Reactive (Non-Reactive); Hepatitis C IgG Antibody Non-Reactive (Non-Reactive)
== END | disposition home or self-care (01) ==
LOC: LABWHC1 13:47
PROVIDERS: ATTEND Nurse Practitioner
DX: K76.9 Liver disease, unspecified (principal)
CPT/HCPCS: 36415; 80074; 80076; 82105; 85025; 85610

== ENCOUNTER → 2020-11-16 | Outpatient (CLI) | payer BC ==
--- NOTE | 2020-11-16 15:18 | MR ---
EXAMINATION TYPE: MR liver wo/w con DATE OF EXAM: 11/16/2020 COMPARISON: Ultrasound dated 11/09/2020 HISTORY: Liver disease, elevated liver enzymes CONTRAST: Standard multiplanar, multisequence MRI departmental protocol utilizing 11.5 mL intravenous Gadavist gadolinium contrast. FINDINGS: There is a solid mass noted involving the left hepatic lobe lateral segment at its subcapsular region measuring 5.5 x 4.6 cm. There is homogeneous enhancement although there is the suggestion of central scar. Differential diagnostic possibilities include fibronodular hyperplasia as well as a hepatic ad enoma. There is a small adjacent 8 mm nodule identified also solid in appearance. Additional consider ation is that of metastatic disease although felt to be unlikely in the absence of primary malignancy . Intrahepatic and extra hepatic biliary tree are of normal caliber. Gallbladder is of normal caliber . Pancreas spleen and adrenal glands are unremarkable. Small cyst left kidney measuring less than 1 cm. Abdominal aorta is of normal caliber as visualized. The graft IMPRESSION: 1. Solid mass in the left hepatic lobe with small adjacent additional solid lesion. 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 Adenomas and additional consideration. See above.
== END | disposition home or self-care (01) ==
LOC: RADMRIMAIN 11:40
PROVIDERS: ATTEND Nurse Practitioner
DX: D13.4 Benign neoplasm of liver (principal); R16.0 Hepatomegaly, not elsewhere classified; K76.89 Other specified diseases of liver
CPT/HCPCS: 74183; A9585

== ENCOUNTER → 2021-07-29 | Outpatient (CLI) | payer BC ==
[2021-07-29 12:13] LABS: INR 0.9 (<1.2); Partial Thromboplastin Time 23.4 sec (22.0-30.0)
[2021-07-29 12:29] LABS: Appearance,Urine Clear (Clear); Bilirubin,Urine Negative (Negative); Blood,Urine Negative (Negative); Color,Urine Yellow; Glucose,Urine (UA) Negative (Negative); Ketones,Urine Negative (Negative); Leukocyte Esterase,Urine Negative (Negative); Nitrite,Urine Negative (Negative); Protein,Urine Negative (Negative); Specific Gravity,Urine 1.025 (1.001-1.035); Urobilinogen,Urine <2.0 mg/dL (<2.0)
[2021-07-29 16:46] LABS: Basophils # (A) 0.05 X 10*3/uL (0.00-0.10); Basophils % (A) 0.7 %; Eosinophils # (A) 0.25 X 10*3/uL (0.04-0.35); Eosinophils % (A) 3.7 %; HCT 53.2 % (39.6-50.0); Lymphocytes # (A) 1.72 X 10*3/uL (0.90-5.00); Lymphocytes % (A) 25.5 %; MCH 28.5 pg (27.0-32.0); MCV 89.1 fL (80.0-97.0); Mean Platelet Volume 12.6 fL (9.5-12.2); Monocytes # (A) 0.45 X 10*3/uL (0.20-1.00); Monocytes % (A) 6.7 %; Neutrophils # (A) 4.23 X 10*3/uL (1.80-7.70); Neutrophils % (A) 62.8 %; Platelet Count 195 X 10*3/uL (140-440); RBC 5.97 X 10*6/uL (4.40-5.60); RDW 13.2 % (11.5-14.5); WBC 6.74 X 10*3/uL (4.50-10.00)
[2021-07-29 16:50] LABS: African American GFR (CKD) 99.5 (60.0-200.0); Albumin 4.6 g/dL (3.8-4.9); Albumin/Globulin Ratio 1.72 (1.60-3.17); Anion Gap 11.9 mmol/L (4.00-12.00); BUN/Creat Ratio 12.05 Ratio (12.00-20.00); Blood Urea Nitrogen 13.5 mg/dL (9.0-27.0); Calcium 9.9 mg/dL (8.7-10.3); Carbon Dioxide 24.8 mmol/L (21.6-31.8); Globulin 2.7 g/dL (1.6-3.3); Non-African American GFR(CKD) 85.9 (60.0-200.0); Potassium 5.1 mmol/L (3.5-5.5); Total Bilirubin 0.3 mg/dL (0.30-1.20); Total Protein 7.3 g/dL (6.2-8.2)
== END | disposition home or self-care (01) ==
LOC: LABWHC1 09:58
PROVIDERS: ATTEND Neurological Surgery
DX: R07.89 Other chest pain (principal)
CPT/HCPCS: 36415; 80053; 81003; 85025; 85610; 85730

== ENCOUNTER → 2023-03-02 | Outpatient (CLI) | payer OTHER ==
[2023-03-02 16:04] LABS: African American GFR (CKD) 85.9 (60.0-200.0); Anion Gap 7.5 mmol/L (10.00-18.00); Blood Urea Nitrogen 14.7 mg/dL (9.0-27.0); Non-African American GFR(CKD) 74.1 (60.0-200.0)
[2023-03-02 16:52] LABS: HCT 50.3 % (39.6-50.0); HGB 16.2 g/dL (13.0-17.0); MCH 28.7 pg (27.0-32.0); MCHC 32.2 g/dL (32.0-37.0); Mean Platelet Volume 11.7 fL (9.5-12.2); NRBC Per 100 WBC 0 /100 WBCS (0.0-0.0); Platelet Count 194 X 10*3/uL (140-440); RBC 5.65 X 10*6/uL (4.40-5.60); RDW 13.4 % (11.5-14.5); WBC 5.04 X 10*3/uL (4.50-10.00)
== END | disposition home or self-care (01) ==
LOC: LABPAT 09:56
PROVIDERS: ATTEND Internal Medicine Interventional Cardiology
DX: Z01.812 Encounter for preprocedural laboratory examination (principal); R07.89 Other chest pain
CPT/HCPCS: 36415; 80051; 82565; 84520; 85027

== ENCOUNTER 2023-03-03 05:58 | Day surgery (SDC) | payer OTHER ==
[2023-03-03] MEDS ORDERED: NITROGLYCERIN SL TABS 0.4 MG TAB SUBLINGUAL PRN (06:03)
[2023-03-03] MEDS ORDERED: HEPARIN SODIUM,PORCINE 2,500 UNIT in SODIUM CHLORIDE 0.9% 250 ML IRRIGATION PRN (06:03)
[2023-03-03] MEDS ORDERED: ALPRAZolam 0.5 MG TAB PO PRN (06:03)
[2023-03-03] MEDS ORDERED: ATORVASTATIN 80 MG TAB PO STA (06:03)
[2023-03-03] MEDS ORDERED: HEPARIN SODIUM,PORCINE 10,000 UNIT in SODIUM CHLORIDE 0.9% 1,000 ML IRRIGATION PRN (06:03)
[2023-03-03] MEDS ORDERED: SODIUM CHLORIDE 0.9% 1,000 ML in EMPTY BAG 1 BAG IV SCH (06:03)
[2023-03-03] MEDS ORDERED: ASPIRIN 325 MG TAB PO STA (06:03)
[2023-03-03] MEDS ORDERED: ALPRAZolam 0.25 MG TAB PO PRN (06:03)
[2023-03-03] MEDS ORDERED: SODIUM CHLORIDE 0.9% 1,000 ML IV ONE (06:12)
[2023-03-03 07:06] VITALS: RESP 16; TEMP 97.2
[2023-03-03] MEDS ORDERED: MIDAZOLAM 2 MG/2 ML VIAL IV ONE (07:34)
[2023-03-03] MEDS ORDERED: LIDOCAINE 1% PF 10 MG/ML (5 ML AMP) SQ ONE (07:36)
[2023-03-03] MEDS ORDERED: VERAPAMIL SYRINGE (5 MG/10 ML) INTRAARTER ONE (07:38)
[2023-03-03] MEDS ORDERED: RX INFO: IV CONTRAST WAS GIVEN 1 EACH MISC MISCELLANE PRN (07:46)
--- NOTE | 2023-03-03 07:50 | P.PCN ---
Date of Procedure: 03/03/23 Operative Findings: CARDIAC CATHETERIZATION PERFORMING PHYSICIAN: Ulices Burnette MD, RPVI PROCEDURE PERFORMED: 1. Selective right and left coronary angiogram 2. Left heart catheterization INDICATION: Chest discomfort concerning for angina COMPLICATION: None APPROACH: Right radial artery LEVEL OF SEDATION: Moderate with a sedation length of 10 minutes PROCEDURE DESCRIPTION: After obtaining an informed consent, the patient was brought to cardiac warehouse laborer. Local anesthesia was performed using lidocaine subcutaneously. The right radial artery was cannulated using Seldinger technique, the guidewire passed easily, following that we advanced a 5-Cuban sheath dilator assembly, the wire and dilator were removed and sheath was flushed. Following that, 2 mg of verapamil along with 3000 unit heparin were given. Selective right and left coronary angiogram using a 6-Cuban JR4 and JL 3.5 catheters. Following that we did left heart catheterization using 6-Cuban pigtail catheter. The procedure was completed there was no complication. SELECTIVE CORONARY ANGIOGRAM: The right coronary artery: Large-caliber vessel and a dominant vessel. The RCA is angiographically normal. Left main: Is angiographically normal. Bifurcates into an LCx and LAD The left circumflex: Large caliber vessel and a codominant vessel. The LCx is angiographically normal. It gives rise into the first and second obtuse marginal branches and they both appeared to be angiographically normal The left anterior descending artery: Is angiographically normal. It gives rise into a large diagonal branch which appears to be angiographically normal HEMODYNAMICS: LVEDP was 19 mmHg was no significant gradient across aortic valve CONCLUSION: 1. Normal coronary angiogram 2. Elevated left sided filling pressure POSTPROCEDURE MANAGEMENT: Medical treatment and follow-up with the patient
[2023-03-03] MEDS ORDERED: IOPAMIDOL-370 200ML BTL INJ ONE (07:53)
[2023-03-03] MEDS ORDERED: SODIUM CHLORIDE 0.9% 1,000 ML IV SCH (08:00)
[2023-03-03 18:03] VITALS: BP 136/72; PULSE 95
== END 2023-03-03 13:02 | disposition home or self-care (01) ==
LOC: CATHCVL 05:58
PROVIDERS: ATTEND Internal Medicine Interventional Cardiology
DX: R07.89 Other chest pain (principal); Z87.74 Personal history of (corrected) congenital malformations of heart and circulatory system; I10 Essential (primary) hypertension; E78.5 Hyperlipidemia, unspecified; Z82.49 Family history of ischemic heart disease and other diseases of the circulatory system; F17.290 Nicotine dependence, other tobacco product, uncomplicated; Z79.82 Long term (current) use of aspirin; Z79.899 Other long term (current) drug therapy; Z86.73 Personal history of transient ischemic attack (TIA), and cerebral infarction without residual deficits; Z98.890 Other specified postprocedural states
CPT/HCPCS: 93458; 99152; C1769; C1894; J2250; J2001; J1644; Q9967

== ENCOUNTER 2023-03-12 09:45 | Inpatient (IN) | payer OTHER ==
[2023-03-12 10:26] LABS: Basophils % (A) 0 %; Eosinophils # (A) 0.2 k/uL (0-0.7); Eosinophils % (A) 2 %; HCT 47.9 % (39.0-53.0); HGB 15.8 gm/dL (13.0-17.5); Lymphocytes # (A) 1.5 k/uL (1.0-4.8); Lymphocytes % (A) 19 %; MCH 29.6 pg (25.0-35.0); MCHC 33.1 g/dL (31.0-37.0); MCV 89.4 fL (80.0-100.0); Mean Platelet Volume 8.8; Monocytes # (A) 0.5 k/uL (0-1.0); Monocytes % (A) 6 %; Neutrophils # (A) 5.7 k/uL (1.3-7.7); Neutrophils % (A) 71 %; Platelet Count 218 k/uL (150-450); RBC 5.36 m/uL (4.30-5.90); RDW 13.5 % (11.5-15.5); WBC 7.9 k/uL (3.8-10.6)
[2023-03-12 10:36] LABS: Partial Thromboplastin Time 24.7 sec (22.0-30.0); Prothrombin Time 10.2 sec (9.0-12.0)
[2023-03-12 10:44] LABS: Albumin 4.1 g/dL (3.5-5.0); Calcium 8.7 mg/dL (8.4-10.2); Magnesium 1.9 mg/dL (1.6-2.3); Potassium 4.6 mmol/L (3.5-5.1); Total Bilirubin 0.9 mg/dL (0.2-1.3); Total Protein 6.8 g/dL (6.3-8.2)
[2023-03-12] MEDS ORDERED: HEPARIN SODIUM 1,000 UN/ML (10ML VL) IV ONE (11:14)
[2023-03-12] MEDS ORDERED: HEPARIN SODIUM 1,000 UN/ML (10ML VL) IV PRN (11:14)
[2023-03-12] MEDS ORDERED: HEPARIN SOD,PORK IN 0.45% NACL 25,000 UNIT in 0.45% NACL 1 250ML.BAG IV SCH (11:15)
[2023-03-12] MEDS ORDERED: NALOXONE 0.4 MG/ML 1 ML VIAL IV PRN (11:25)
--- NOTE | 2023-03-12 11:29 | ED ---
General Adult HPI - General Chief complaint: Chest Pain Stated complaint: chest pain Time Seen by Provider: 03/12/23 09:47 Source: patient, EMS, RN notes reviewed, old records reviewed Mode of arrival: EMS Limitations: no limitations - History of Present Illness Initial comments: Patient is a 37-year-old male with past medical history remarkable for chronic chest pain who recently had a clean cardiac catheterization last week presents emergency Department complaining of left-sided chest pain. Describes it as a pressure achy sensation that radiates towards his left shoulder. States it occurred today suddenly while sitting at rest. No diaphoresis. No nausea or vomiting. No shortness of breath. He called EMS, and he was administered 324 mg of aspirin, as well as multiple nitro glycerin tablets which did resolve his pain. Patient currently is asymptomatic. His no acute complaints. States he has received an extensive cardiac workup in the past. Had a cardiac cath completed by Dr. Burnette last week. Presents for further evaluation at this time. - Related Data Home Medications Medication Instructions Recorded Confirmed Aspirin EC [Ecotrin Low Dose] 81 mg PO DAILY 05/14/20 03/12/23 Lisdexamfetamine Dimesylate 30 tab PO DAILY 02/26/23 03/12/23 [Vyvanse] Losartan [Cozaar] 25 mg PO DAILY 02/26/23 03/12/23 Schulenburg-3 Fatty Acids [Sch[place]enburg-3] 1 tab PO BID 02/26/23 03/12/23 Omeprazole [PriLOSEC] 20 mg PO AC-BID 02/26/23 03/12/23 Topiramate 100 mg PO DAILY 02/26/23 03/12/23 Amitriptyline HCl [Elavil] 25 mg PO HS 03/12/23 03/12/23 Allergies Allergy/AdvReac Type Severity Reaction Status Date / Time shellfish derived [Shellfish] Allergy Nausea & Verified 03/12/23 10:39 Vomiting Review of Systems ROS Statement: Those systems with pertinent positive or pertinent negative responses have been documented in the HPI. Review of Systems: CONST: Denies fever EYES: Denies blurry vision ENT: Denies nasal congestion C/V: Denies current Chest pain RESP: Denies shortness of breath GI: Denies abdominal pain : Denies dysuria SKIN: Denies rash. MSK: Denies joint pain. NEURO: Denies headache ROS Other: All systems not noted in ROS Statement are negative. 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 see dr diane H & P History of Any Multi-Drug Resistant Organisms: None Reported Past Surgical History: Hernia Repair Additional Past Surgical History / Comment(s): ROEL, rt inguinal hernia repair, lt testes descended , as infant also had hernia repiar Testicular retreval (left) about 21 years ago procedure to "close hole in heart" Past Anesthesia/Blood Transfusion Reactions: No Reported Reaction Additional Past Anesthesia/Blood Transfusion Reaction / Comment(s): no hx blood transfusion Past Psychological History: Anxiety Smoking Status: Never smoker - Past Family History Mother Family Medical History: Hypertension Additional Family Medical History / Comment(s): grandfather had stroke DM Father Family Medical History: CVA/TIA Additional Family Medical History / Comment(s): grandfather had stroke General Exam - General Exam Comments Initial Comments: General: Appears in no acute distress. HEAD: Normal with no signs of head trauma. EYES: EOMI ENT: Hearing grossly intact, normal oropharynx. RESPIRATORY: Clear breath sounds bilaterally. No wheezes, rales, or rhonchi. C/V: Regular rate and rhythm. S1 and S2 auscultated, no edema, peripheral pulses 2+ and intact throughout ABD: Abd is soft, nontender, nondistended EXT: Normal range of motion, no obvious deformity SKIN: No rashes or lesions observed on exposed skin. NEURO: Alert and oriented 4. No focal deficits. Limitations: no limitations Course Vital Signs 03/12/23 03/12/23 09:53 12:17 Temperature 97.6 F 98.4 F Pulse Rate 65 73 Respiratory 18 18 Rate Blood Pressure 130/89 141/98 O2 Sat by Pulse 100 96 Oximetry Medical Decision Making - Medical Decision Making Was pt. sent in by a medical professional or institution (, PA, FRYLINE ATTENDANT, urgent care, hospital, or half-way...) When possible be specific @ -No Did you speak to anyone other than the patient for history (EMS, parent, family, police, friend...)? What history was obtained from this source @ -No Did you review nursing and triage notes (agree or disagree)? Why? @ -I reviewed and agree with nursing and triage notes Were old charts reviewed (outside hosp., previous admission, EMS record, old EKG, old radiological studies, urgent care reports/EKG's, half-way records)? Report findings @ -Old charts as well as cardiac cath from February 2023 reviewed. Differential Diagnosis (chest pain, altered mental status, abdominal pain women, abdominal pain men, vaginal bleeding, weakness, fever, dyspnea, syncope, headache, dizziness, GI bleed, back pain, seizure, CVA, palpatations, mental health, musculoskeletal)? @ -Differential Chest Pain: Stable Angina, Unstable Angina, STEMI, NSTEMI Aortic Dissection, Pneumothorax, Musculoskeletal, Esophageal Spasm GERD, Cholecystitis, Pancreatitis, Zoster, this is not meant to be an all-inclusive list. EKG interpreted by me (3pts min.). @ -As above X-rays interpreted by me (1pt min.). @ -Chest x-ray shows no acute cardiopulmonary process. CT interpreted by me (1pt min.). @ -None done U/S interpreted by me (1pt. min.). @ -None done What testing was considered but not performed or refused? (CT, X-rays, U/S, labs)? Why? @ -None What meds were considered but not given or refused? Why? @ -None Did you discuss the management of the patient with other professionals (professionals i.e. , PA, FRYLINE ATTENDANT, lab, RT, psych nurse, social media sr strategy manager, ruby on rails web developer, teacher, child support case officer, hospice case manager)? Give summary @ -I spoke with the admitting physician, Dr. jon who accepted the patient. Was smoking cessation discussed for >3mins.? @ -No Was critical care preformed (if so, how long)? @ -Yes, 35 minutes. Were there social determinants of health that impacted care today? How? (Homelessness, low income, unemployed, alcoholism, drug addiction, transportation, low edu. Level, literacy, decrease access to med. care, long-term, re hab)? @ -No Was there de-escalation of care discussed even if they declined (Discuss DNR or withdrawal of care, Hospice)? DNR status @ -No What co-morbidities impacted this encounter? (DM, HTN, Smoking, COPD, CAD, Cancer, CVA, ARF, Chemo, Hep., AIDS, mental health diagnosis, sleep apnea, morbid obesity)? @ -Chronic chest pain Was patient admitted / discharged? Hospital course, mention meds given and route, prescriptions, significant lab abnormalities, going to OR and other pertinent info. @ -Based on the patient's presentation and physical exam, presents following an episode of typical chest pain controlled with nitro glycerin tablets. He currently is pain-free. Vital signs within acceptable limits. We will obtain a cardiac workup. He was in agreement this plan. He already received aspirin. Chest x-ray shows no obvious acute process. EKG shows no acute ischemic changes. Labs are remarkable for a elevated troponin of 0.267. On reevaluation, patient still pain-free. We did discuss his results. Due to his typical chest pain nature, despite a clean Last week, and concern still for ACS versus possible coronary vasospasm or other etiology. We will empirically place him on a heparin drip. We'll trend the troponin and admitted him to the hospital for cardiology evaluation. He was in agreement with this plan. Nitroglycerin paste was applied. He still remains pain-free.Patient remains pain-free at time of admission. Cardiology was consulted. I spoke with the admitting physician, Dr. Jon who accepted the patient. Undiagnosed new problem with uncertain prognosis? @ -No Drug Therapy requiring intensive monitoring for toxicity (Heparin, Nitro, Insulin, Cardizem)? @ -Heparin Were any procedures done? @ -No Diagnosis/symptom? @ -NSTEMI, typical chest pain Acute, or Chronic, or Acute on Chronic? @ -Acute Uncomplicated (without systemic symptoms) or Complicated (systemic symptoms)? @ -Complicated Side effects of treatment? @ -No Exacerbation, Progression, or Severe Exacerbation? @ -No Poses a threat to life or bodily function? How? (Chest pain, [place], [place], pneumonia, PE, COPD, DKA, ARF, appy, cholecystitis, CVA, Diverticulitis, Homicidal, Suicidal, threat to staff... and all critical care pts) @ -Yes - Lab Data Result diagrams: 03/12/23 10:21 03/12/23 10:21 Lab Results 03/12/23 03/12/23 03/12/23 Range/Units 10:21 10:21 10:21 WBC 7.9 (3.8-10.6) k/uL RBC 5.36 (4.30-5.90) m/uL Hgb 15.8 (13.0-17.5) gm/dL Hct 47.9 (39.0-53.0) % MCV 89.4 (80.0-100.0) fL MCH 29.6 (25.0-35.0) pg MCHC 33.1 (31.0-37.0) g/dL RDW 13.5 (11.5-15.5) % Plt Count 218 (150-450) k/uL MPV 8.8 Neutrophils % 71 % Lymphocytes % 19 % Monocytes % 6 % Eosinophils % 2 % Basophils % 0 % Neutrophils # 5.7 (1.3-7.7) k/uL Lymphocytes # 1.5 (1.0-4.8) k/uL Monocytes # 0.5 (0-1.0) k/uL Eosinophils # 0.2 (0-0.7) k/uL Basophils # 0.0 (0-0.2) k/uL PT 10.2 (9.0-12.0) sec INR 1.0 (<1.2) APTT 24.7 (22.0-30.0) sec Sodium 140 (137-145) mmol/L Potassium 4.6 (3.5-5.1) mmol/L Chloride 110 H (98-107) mmol/L Carbon Dioxide 22 (22-30) mmol/L Anion Gap 8 mmol/L BUN 21 H (9-20) mg/dL Creatinine 1.25 (0.66-1.25) mg/dL Est GFR (CKD-EPI)AfAm 86 (>60 ml/min/1.73 sqM) Est GFR (CKD-EPI)NonAf 75 (>60 ml/min/1.73 sqM) Glucose 115 H (74-99) mg/dL Calcium 8.7 (8.4-10.2) mg/dL Magnesium 1.9 (1.6-2.3) mg/dL Total Bilirubin 0.9 (0.2-1.3) mg/dL AST 23 (17-59) U/L ALT 52 H (4-49) U/L Alkaline Phosphatase 72 (38-126) U/L Troponin I (0.000-0.034) ng/mL Total Protein 6.8 (6.3-8.2) g/dL Albumin 4.1 (3.5-5.0) g/dL Lipase 126 (23-300) U/L 03/12/23 Range/Units 10:21 WBC (3.8-10.6) k/uL RBC (4.30-5.90) m/uL Hgb (13.0-17.5) gm/dL Hct (39.0-53.0) % MCV (80.0-100.0) fL MCH (25.0-35.0) pg MCHC (31.0-37.0) g/dL RDW (11.5-15.5) % Plt Count (150-450) k/uL MPV Neutrophils % % Lymphocytes % % Monocytes % % Eosinophils % % Basophils % % Neutrophils # (1.3-7.7) k/uL Lymphocytes # (1.0-4.8) k/uL Monocytes # (0-1.0) k/uL Eosinophils # (0-0.7) k/uL Basophils # (0-0.2) k/uL PT (9.0-12.0) sec INR (<1.2) APTT (22.0-30.0) sec Sodium (137-145) mmol/L Potassium (3.5-5.1) mmol/L Chloride (98-107) mmol/L Carbon Dioxide (22-30) mmol/L Anion Gap mmol/L BUN (9-20) mg/dL Creatinine (0.66-1.25) mg/dL Est GFR (CKD-EPI)AfAm (>60 ml/min/1.73 sqM) Est GFR (CKD-EPI)NonAf (>60 ml/min/1.73 sqM) Glucose (74-99) mg/dL Calcium (8.4-10.2) mg/dL Magnesium (1.6-2.3) mg/dL Total Bilirubin (0.2-1.3) mg/dL AST (17-59) U/L ALT (4-49) U/L Alkaline Phosphatase (38-126) U/L Troponin I 0.267 H* (0.000-0.034) ng/mL Total Protein (6.3-8.2) g/dL Albumin (3.5-5.0) g/dL Lipase (23-300) U/L - EKG Data -: EKG Interpreted by Me EKG Comments: 12-lead Electrocardiogram Interpretation Note EKG was reviewed and interpreted by myself. 12-lead ECG performed at 0955 is interpreted by me as revealing normal sinus rhythm at a rate of 64 beats per minute. Ashley is normal. NC interval is 172 ms, QRS duration is 86 ms, QTc is 395 ms.. There were no ST or T wave abnormalities to suggest myocardial ischemia or injury. R wave progression across the precordium was satisfactory. By my interpretation this EKG is non-diagnostic for acute ischemia. When compared with EKG from April 2020, no significant change. Critical Care Time Critical Care Time: Yes Total Critical Care Time: 35 Disposition Clinical Impression: Acute non-ST elevation myocardial infarction (NSTEMI), Chest pain Disposition: ADMITTED IP TO THIS [facility] Condition: Stable Time of Disposition: 11:15
[2023-03-12] MEDS: NITROGLYCERIN OINT 1 INCH/GM PACKET TOPICAL SCH ×3 (11:31→23:31)
--- NOTE | 2023-03-12 11:50 | XR ---
EXAMINATION TYPE: XR chest 2V DATE OF EXAM: 03/12/2023 COMPARISON: None HISTORY: 37-year-old male with chest pain TECHNIQUE: PA and lateral views FINDINGS: The cardiomediastinal silhouette, aorta, and pulmonary vasculature are within normal limits. PFO clos ure device. Lungs and pleural spaces are clear. IMPRESSION: No acute cardiopulmonary process.
[2023-03-12] MEDS ORDERED: ASPIRIN 81 MG PO SCH (14:15)
[2023-03-12] MEDS: LOSARTAN 25 MG TAB PO SCH (14:26)
--- NOTE | 2023-03-12 16:19 | P.HPIM ---
History of Present Illness H&P Date: 03/12/23 Patient is a 37-year-old male with history of TIA/CVA, patent PFO status post repair presenting with intermittent chest pain. He has had similar chest pain for multiple years. He has had extensive workup for cardiac causes of chest pain. He recently had cardiac catheterization on 03/03/23 with normal coronary angiogram with elevated left-sided filling pressure. He had another chest pain episode on Thursday, which self resolved. This morning he noted left-sided chest pain, which felt like pressure, radiating to left shoulder and left arm, 10/10, with difficulty breathing. Currently he feels only minimal sensation in his left chest. He denies any recent fevers or chills, abdominal pain, nausea, vomiting, diarrhea, constipation, sick contacts, or travel history. In the ED, temperature 97.6, blood pressure 130/89, saturating under percent on room air, pulse 65, respiratory rate 18. CBC was unremarkable, potassium 4.6, magnesium 1.9, BUN 21, creatinine 1.25, troponin 0.267, increased to 0.715. Chest x-ray shows no acute process. EKG shows normal sinus rhythm. Patient admitted for non-ST elevation NJ. Cardiology consulted. Currently on heparin drip. Pertinent positives and negatives as discussed in HPI, a complete review of systems was performed and all other systems are negative. Patient seen and examined at bedside. Vital signs reviewed General: nontoxic, no distress, appears at stated age Derm: warm, dry Head: atraumatic, normocephalic, symmetric Eyes: EOMI, no lid lag, anicteric sclera, pupils equal round reactive to light ENT: Nose and ears atraumatic Neck: No thyromegaly, supple Mouth: no lip lesion, mucus membranes moist Cardiovascular: S1S2 reg, no murmur, no edema Lungs: clear to auscultation bilateral, no rhonchi, no rales, no wheeze, no accessory muscle use Abdominal: soft, nontender to palpation, no guarding, no appreciable org anomegaly Ext: no gross muscle atrophy, muscle strength muscle strength 5 out of 5 in all 4 extremities, no contractures Neuro: CN II-XII grossly intact Psych: Alert, oriented, appropriate affect Assessment/Plan: Active: Non-ST elevation NJ Elevated left-sided filling pressure Prerenal azotemia -Possibly coronary vasospasm given normal coronary angiogram -Consider calcium channel kaitlynn -Aspirin 81 mg, atorvastatin 40 mg -Continue telemetry -Trend troponin -Heparin drip, monitor for any bleeding -CBC tomorrow -Cardiology consulted, also started patient on metoprolol Chronic: ADHD Migraine headaches GERD Hypertension The patient is admitted with an anticipated greater than 2 midnight stay as inpatient status for evaluation of non-ST elevation NJ. Surrogate decision-maker: Father CODE STATUS: Full code DVT prophylaxis: Heparin drip Anticipated discharge date: Pending clinical course Anticipated discharge place: Pending clinical course A total of 55 minutes was spent on the care of this complex patient more than 50% of the time was spent in counseling and care coordination. 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 see dr diane H & P History of Any Multi-Drug Resistant Organisms: None Reported Past Surgical History: Hernia Repair Additional Past Surgical History / Comment(s): ROEL, rt inguinal hernia repair, lt testes descended , as also had hernia repiar Testicular retreval (le ft) about 21 years ago procedure to "close hole in heart" Past Anesthesia/Blood Transfusion Reactions: No Reported Reaction Additional Past Anesthesia/Blood Transfusion Reaction / Comment(s): no hx blood transfusion Past Psychological History: Anxiety Smoking Status: Never smoker - Past Family History Mother Family Medical History: Hypertension Additional Family Medical History / Comment(s): grandfather had stroke DM Father Family Medical History: CVA/TIA Additional Family Medical History / Comment(s): grandfather had stroke Medications and Allergies Home Medications Medication Instructions Recorded Confirmed Type Aspirin EC [Ecotrin Low Dose] 81 mg PO DAILY 05/14/20 03/12/23 History Lisdexamfetamine Dimesylate 30 tab PO DAILY 02/26/23 03/12/23 History [Vyvanse] Losartan [Cozaar] 25 mg PO DAILY 02/26/23 03/12/23 History Delphia-3 Fatty Acids [Delphia-3] 1 tab PO BID 02/26/23 03/12/23 History Omeprazole [PriLOSEC] 20 mg PO AC-BID 02/26/23 03/12/23 History Topiramate 100 mg PO DAILY 02/26/23 03/12/23 History Amitriptyline HCl [Elavil] 25 mg PO HS 03/12/23 03/12/23 History Allergies Allergy/AdvReac Type Severity Reaction Status Date / Time shellfish derived [Shellfish] Allergy Nausea & Verified 03/12/23 10:39 Vomiting Physical Exam Vitals: Vital Signs Temp Pulse Resp BP Pulse Ox 03/12/23 12:17 98.4 F 73 18 141/98 96 03/12/23 09:53 97.6 F 65 18 130/89 100 Intake and Output 03/12/23 03/12/23 03/12/23 06:59 14:59 22:59 Other: Weight 106.594 kg Results CBC & Chem 7: 03/12/23 10:21 03/12/23 10:21 Labs: Abnormal Lab Results - Last 24 Hours (Table) 03/12/23 03/12/23 03/12/23 Range/Units 10:21 10:21 12:50 Chloride 110 H (98-107) mmol/L BUN 21 H (9-20) mg/dL Glucose 115 H (74-99) mg/dL ALT 52 H (4-49) U/L Troponin I 0.267 H* 0.715 H* (0.000-0.034) ng/mL
[2023-03-12] MEDS: PANTOPRAZOLE 40 MG TABLET PO SCH (17:12)
[2023-03-12] MEDS ORDERED: NON FORMULARY DRUG (Omega-3 Fatty Acids [Omega-3] 1,000 MG Capsule) PO SCH (21:00)
[2023-03-12] MEDS: METOPROLOL TARTRATE 25 MG TAB PO SCH (21:19)
[2023-03-12] MEDS: AMITRIPTYLINE HCL 25 MG TAB PO SCH (21:19)
[2023-03-12] MEDS: ATORVASTATIN 40 MG TAB PO SCH (21:19)
[2023-03-13 06:02] LABS: Basophils % (A) 1 %; Eosinophils # (A) 0.1 k/uL (0-0.7); Eosinophils % (A) 2 %; HCT 47.8 % (39.0-53.0); HGB 15.6 gm/dL (13.0-17.5); Lymphocytes # (A) 2.3 k/uL (1.0-4.8); Lymphocytes % (A) 29 %; MCH 29.5 pg (25.0-35.0); MCHC 32.6 g/dL (31.0-37.0); MCV 90.3 fL (80.0-100.0); Monocytes # (A) 0.5 k/uL (0-1.0); Monocytes % (A) 7 %; Neutrophils # (A) 4.8 k/uL (1.3-7.7); Neutrophils % (A) 61 %; Platelet Count 222 k/uL (150-450); RBC 5.29 m/uL (4.30-5.90); RDW 13.5 % (11.5-15.5); WBC 7.9 k/uL (3.8-10.6)
[2023-03-13 06:10] LABS: Prothrombin Time 10.7 sec (9.0-12.0)
[2023-03-13] MEDS: PANTOPRAZOLE 40 MG TABLET PO SCH ×2 (06:13→16:10)
[2023-03-13 06:16] LABS: African American GFR (CKD) >90 (>60 ml/min/1.73 sqM); Anion Gap 9 mmol/L; Blood Urea Nitrogen 19 mg/dL (9-20); Calcium 8.8 mg/dL (8.4-10.2); Carbon Dioxide 21 mmol/L (22-30); Chloride 110 mmol/L (98-107); Glucose 117 mg/dL (74-99); Non-African American GFR(CKD) 84 (>60 ml/min/1.73 sqM); Potassium 4.2 mmol/L (3.5-5.1); Sodium 140 mmol/L (137-145)
[2023-03-13] MEDS ORDERED: HEPARIN SODIUM,PORCINE 2,500 UNIT in SODIUM CHLORIDE 0.9% 250 ML IRRIGATION PRN (07:00)
[2023-03-13] MEDS ORDERED: HEPARIN SODIUM,PORCINE 10,000 UNIT in SODIUM CHLORIDE 0.9% 1,000 ML IRRIGATION PRN (07:00)
[2023-03-13] MEDS ORDERED: ATORVASTATIN 80 MG TAB PO STA (07:25)
[2023-03-13] MEDS ORDERED: ASPIRIN 325 MG TAB PO STA (07:25)
[2023-03-13] MEDS ORDERED: ALPRAZolam 0.25 MG TAB PO PRN (07:25)
[2023-03-13] MEDS: Lisdexamfetamine Dimesylate [Vyvanse] 30 MG Capsule PO SCH (08:17)
[2023-03-13] MEDS: LOSARTAN 25 MG TAB PO SCH (08:29)
[2023-03-13] MEDS: TOPIRAMATE 100 MG TAB PO SCH (08:29)
[2023-03-13] MEDS: METOPROLOL TARTRATE 25 MG TAB PO SCH (08:29)
[2023-03-13] MEDS: NITROGLYCERIN OINT 1 INCH/GM PACKET TOPICAL SCH ×2 (08:29→15:03)
[2023-03-13] MEDS ORDERED: VERAPAMIL 2.5 MG/ML 2 ML AMP ONE (11:30)
[2023-03-13] MEDS ORDERED: IV FLUID CONTINUATION 800 ML IV ONE (11:30)
[2023-03-13] MEDS ORDERED: HEPARIN SODIUM 1,000 UN/ML (10ML VL) ONE (11:30)
[2023-03-13] MEDS ORDERED: MIDAZOLAM 2 MG/2 ML VIAL IV ONE (11:40)
--- NOTE | 2023-03-13 11:41 | CA ---
Transthoracic Echo Report Name: Campbell Lemus Age: 37 Gender: M : 1985 Exam Date: 03/13/2023 08:52 Exam Location: [place] [facility] Ht (in): 71 Wt (lb): 235 Ordering Physician: Lana Mckee Attending/Referring Phys: [id number], Rylee Trial Lawyer Maritza Lopez, NANDO Procedure CPT: Indications: LVF Cardiac Hx: Technical Quality: Good Contrast 1: Total Dose (mL): Contrast 2: Total Dose (mL): MEASUREMENTS (Male / Female) Normal Values 2D ECHO LV Diastolic Diameter PLAX 4.8 cm 4.2 - 5.9 / 3.9 - 5.3 cm LV Systolic Diameter PLAX 3.2 cm IVS Diastolic Thickness 1.0 cm 0.6 - 1.0 / 0.6 - 0.9 cm LVPW Diastolic Thickness 1.0 cm 0.6 - 1.0 / 0.6 - 0.9 cm LV Relative Wall Thickness 0.4 RV Internal Dim ED PLAX 3.1 cm LA Systolic Diameter LX 3.4 cm 3.0 - 4.0 / 2.7 - 3.8 cm LV Diastolic Volume MOD 4C 94.8 cm??? LV Systolic Volume MOD 4C 49.8 cm??? LV Ejection Fraction MOD 4C 47.4 % LV Diastolic Length 4C 8.5 cm LV Systolic Length 4C 7.0 cm LV Diastolic Volume MOD 2C 105.2 cm??? LV Systolic Volume MOD 2C 35.9 cm??? LV Ejection Fraction MOD 2C 65.9 % LV Diastolic Length 2C 8.8 cm LV Systolic Length 2C 6.8 cm LA Volume 42.2 cm??? 18 - 58 / 22 - 52 cm??? M-MODE Aortic Root Diameter MM 3.9 cm MV E Point Septal Separation 0.7 cm AV Cusp Separation MM 2.7 cm DOPPLER AV Peak Velocity 108.5 cm/s AV Peak Gradient 4.7 mmHg MV Area PHT 4.3 cm??? Mitral E Point Velocity 89.7 cm/s Mitral A Point Velocity 44.9 cm/s Mitral E to A Ratio 2.0 MV Deceleration Time 177.1 ms MV E' Velocity 11.3 cm/s Mitral E to MV E' Ratio 7.9 TR Peak Velocity 187.9 cm/s TR Peak Gradient 14.1 mmHg Right Ventricular Systolic Press 19.1 mmHg FINDINGS Left Ventricle Left ventricular ejection fraction is estimated at 50-55 %. Left ventricular cavity size normal. Left ventricular wall thickness normal. Right Ventricle Normal right ventricular size and function. Right ventricular systolic pressure within normal limits. Right Atrium Normal right atrial size. Left Atrium Normal left atrial size. Mitral Valve Structurally normal mitral valve. No mitral stenosis, regurgitation or prolapse. Aortic Valve Aortic valve not well visualized. No aortic valve stenosis or regurgitation. Tricuspid Valve Structurally normal tricuspid valve. Mild tricuspid regurgitation. Pulmonic Valve Structurally normal pulmonic valve. No pulmonic regurgitation. Pericardium Normal pericardium. No pericardial effusion. Aorta Mild aortic dilatation at the level of the sinuses of valsalva 39 mm CONCLUSIONS Preserved LV size and systolic function Previewed by: Dr. Rubin Jon MD (Electronically Signed) Final Date: 13 Mar 2023 11:40
[2023-03-13] MEDS ORDERED: LIDOCAINE 1% INJ 10MG/ML (5 ML VIAL-PF) SQ ONE (11:46)
[2023-03-13] MEDS ORDERED: LIDOCAINE 1% INJ 10MG/ML (20 ML MDV) SQ ONE (11:50)
[2023-03-13] MEDS: fentaNYL (PF) 50 MCG/ML 2 ML AMP IV ONE ×2 (11:50→12:27)
[2023-03-13] MEDS ORDERED: LIDOCAINE 1% INJ 10MG/ML (20 ML MDV) ONE (11:51)
[2023-03-13] MEDS ORDERED: fentaNYL (PF) 50 MCG/ML 2 ML AMP ONE (11:53)
[2023-03-13] MEDS: NITROGLYCERIN 1000MCG/10ML SYRINGE IV ONE ×3 (12:05→12:13)
[2023-03-13] MEDS ORDERED: niCARdipine 25 MG/10 ML VIAL ONE (12:08)
[2023-03-13] MEDS ORDERED: niCARdipine 25 MG/10 ML VIAL IV ONE (12:10)
[2023-03-13] MEDS ORDERED: niCARdipine Syringe (1,000 mcg/10 mL) INTRAARTER ONE (12:10)
[2023-03-13] MEDS ORDERED: IOPAMIDOL-370 100ML BTL INJ ONE ×2 (12:12→12:55)
[2023-03-13] MEDS ORDERED: NITROGLYCERIN SL TABS 0.4 MG TAB SUBLINGUAL ONE ×2 (12:16→12:17)
--- NOTE | 2023-03-13 12:16 | P.PN ---
Subjective Progress Note Date: 03/13/23 Hospital Course: 37-year-old male with history of TIA/CVA, PFO status post repair presenting with intermittent chest pain. In the ED, temperature 97.6, blood pressure 130/89, saturating under percent on room air, pulse 65, respiratory rate 18. CBC was unremarkable, potassium 4.6, magnesium 1.9, BUN 21, creatinine 1.25, troponin 0.267, increased to 0.715. Chest x-ray shows no acute process. EKG shows normal sinus rhythm. Patient admitted for non-ST elevation FL. Cardiology consulted. Currently on heparin drip. Echocardiogram showed LVEF 50-55%, pending cath. Subjective: Patient examined at bedside. No acute events overnight. Claims that his chest discomfort is. He denies any shortness of breath palpitations, abdominal pain, bowel or urinary complaints. Pertinent positives and negatives as discussed above, a complete review of systems was performed and all other systems are negative. Vitals Signs Reviewed. General: nontoxic, no distress, appears at stated age Derm: warm, dry Head: atraumatic, normocephalic, symmetric Eyes: EOMI, no lid lag, anicteric sclera Mouth: no lip lesion, mucus membranes moist Cardiovascular: S1S2 reg, no murmur Lungs: CTA bilateral, no rhonchi, no rales , no accessory muscle use Abdominal: soft, nontender to palpation, no guarding, no appreciable organomegaly Ext: no gross muscle atrophy, no edema, no contractures Neuro: CN II-XI grossly intact, no focal neuro deficits Psych: Alert, oriented, appropriate affect Data Reviewed Today: Pertinent Labs: WBC 7.9, sodium 140, potassium 4.2, creatinine 1.13 Imaging: Echocardiogram report reviewed, LVEF 50-55%. Assessment and Plan: Active: Non-ST elevation FL Elevated left-sided filling pressure Prerenal azotemia, resolved -Cardiology following -Pending cardiac cath -Possibly coronary vasospasm given prior normal coronary angiogram -Consider calcium channel kaitlynn if this cardiac cath was normal -Aspirin 81 mg, atorvastatin 40 mg -Continue telemetry -Heparin drip, monitor for any bleeding -CBC tomorrow -Also started patient on metoprolol per cardiology Chronic: ADHD Migraine headaches GERD Hypertension DVT ppx: heparin gtt Code status: full code Anticipated discharge place: home Anticipated discharge time: pending clinical course Objective - Vital Signs Vital signs: Vital Signs Temp 98 F 03/13/23 04:00 Pulse 71 03/13/23 04:00 Resp 18 03/13/23 04:00 BP 109/71 03/13/23 04:00 Pulse Ox 96 03/13/23 09:21 FiO2 Intake & Output 03/12/23 03/13/23 03/13/23 18:59 06:59 18:59 Intake Total 361.321 Balance 361.321 Weight 106.594 kg 106.594 kg Intake: Intake, IV Titration 121.321 Amount Heparin Sod,Pork in 0.45% 121.321 NaCl 25,000 unit In 0.45 % NaCl 1 250ml.bag @ 9.38 UNITS/KG/HR 9.999 mls/hr IV .Q24H [facility] Rx#: [id number] Oral 240 Other: # Voids 1 - Labs CBC & Chem 7: 03/13/23 05:40 03/13/23 05:40 Labs: Abnormal Lab Results - Last 24 Hours (Table) 03/12/23 03/12/23 03/12/23 Range/Units 12:50 16:34 16:34 APTT 32.2 H (22.0-30.0) sec Chloride (98-107) mmol/L Carbon Dioxide (22-30) mmol/L Glucose (74-99) mg/dL Troponin I 0.715 H* 0.778 H* (0.000-0.034) ng/mL 03/13/23 03/13/23 Range/Units 05:40 05:40 APTT 43.9 H (22.0-30.0) sec Chloride 110 H (98-107) mmol/L Carbon Dioxide 21 L (22-30) mmol/L Glucose 117 H (74-99) mg/dL Troponin I (0.000-0.034) ng/mL
[2023-03-13] MEDS ORDERED: NITROGLYCERIN-D5W PMX 50 MG in DEXTROSE/WATER 1 250ML.BAG IV ONE (12:21)
[2023-03-13] MEDS ORDERED: MIDAZOLAM 2 MG/2 ML VIAL IVP ONE (12:25)
[2023-03-13] MEDS ORDERED: HEPARIN SODIUM 1,000 UN/ML (10ML VL) IVP ONE (12:30)
[2023-03-13] MEDS: PHENYLEPHRINE-0.9% NACL SYG 1,000 MCG/10 ML SYRINGE IV ONE ×2 (12:35→12:49)
--- NOTE | 2023-03-13 12:38 | P.CRDCN ---
History of Present Illness Consult date: 03/13/23 Consult reason: non-Q-wave NV History of present illness: History of present illness: This is a 37-year-old male patient of s calf with past medical history significant for patent foramen ovale status post percutaneous closure as well as hypertension. Patient was in the office with chest discomfort in a follow-up visit and he was scheduled for cardiac catheterization which was performed on March 03 which revealed normal coronary angiogram. Patient now presents to the hospital due to chest pain that is more intense than what he was previously having. He had an episode on Thursday when he was walking from the pharmacy but it was a casual walk. Yesterday he had another episode while he was sitting on the couch. He denies any dizziness, lightheadedness or syncopal episodes. He checked his blood pressure when he was having chest pain and it was 164/120. EKG sinus rhythm with no acute changes Chest x-ray: No acute cardiopulmonary process CBC normal. INR 1. Sodium 140, potassium 4.2, BUN 19 and creatinine 1.13. Blood sugar 117. Troponin 0.267, 0.715 and 0.778. Lipase 126. Echocardiogram performed on this hospitalization reveals preserved LV size and systolic function. Home cardiac medications: Losartan 25 mg daily, omega-3 one twice daily Review Of Systems: At the time of my evaluation: Constitutional: No fever, no chills. No weakness, fatigue or lethargy. EENT: No headache. No dizziness. Lungs: No shortness of breath, cough, no sputum production. No wheezing. Cardiovascular: No chest pain, no lower extremity edema. No palpitations. No paroxysmal nocturnal dyspnea. No orthopnea. No lightheadedness or dizziness. No syncopal episodes. Abdominal: No abdominal pain. No nausea, vomiting. No diarrhea. No constipation. No bloody or tarry stools. Genitourinary: No dysuria.. No urinary retention. Musculoskeletal: No myalgias. No muscle weakness, no frequent falls. No back pain. No neck pain. Integumentary: No wounds. No rash. No unusual bruising. Neurologic: No aphasia. No facial droop. No change in mentation. No head injury. No headache. Physical examination: Gen: This is a 37-year-old male. He is resting in bed and appears to be comfortable at rest. No acute distress. VS: reviewed HEENT: Head is atraumatic, normocephalic. Pupils equal, round. Sclerae is anicteric. NECK: Supple. No JVD. No carotid bruit LUNGS: Clear to auscultation. No wheezes or rhonchi. No intercostal retractions. HEART: Regular rate and rhythm. No murmur. ABDOMEN: Soft No tenderness. EXTREMITIES: No pedal edema. No calf tenderness. NEUROLOGICAL: Patient is awake, alert and oriented x3. Assessment: Possible non-ST elevated myocardial infarction History of patent foramen ovale status post percutaneous closure Hypertension Plan: Continue patient's home cardiac medications Start patient on aspirin 81 mg daily, Lipitor 40 mg daily, Lopressor 25 mg twice daily schedule patient for cardiac catheterization today with Dr. Burnette Further recommendations to follow based upon clinical course Thank you kindly for this consultation. Nurse practitioner note has been reviewed, I agree with documented findings and plan of care. Patient was seen and examined. 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 see dr diane H & P History of Any Multi-Drug Resistant Organisms: None Reported Past Surgical History: Hernia Repair Additional Past Surgical History / Comment(s): ROEL, rt inguinal hernia repair, lt testes descended , as also had hernia repiar Testicular retreval (left) about 21 years ago procedure to "close hole in heart" Past Anesthesia/Blood Transfusion Reactions: No Reported Reaction Additional Past Anesthesia/Blood Transfusion Reaction / Comment(s): no hx blood transfusion Past Psychological History: Anxiety Additional Psychological History / Comment(s): . Smoking Status: Former smoker Past Alcohol Use History: Occasional Additional Past Alcohol Use History / Comment(s): quit smoking April 2017, smoked approx 7 yrs <1ppd Past Drug Use History: None Reported - Past Family History Mother Family Medical History: Hypertension Additional Family Medical History / Comment(s): grandfather had stroke DM Father Family Medical History: CVA/TIA Additional Family Medical History / Comment(s): grandfather had stroke Medications and Allergies Home Medications Medication Instructions Recorded Confirmed Type Aspirin EC [Ecotrin Low Dose] 81 mg PO DAILY 05/14/20 03/12/23 History Lisdexamfetamine Dimesylate 30 tab PO DAILY 02/26/23 03/12/23 History [Vyvanse] Losartan [Cozaar] 25 mg PO DAILY 02/26/23 03/12/23 History [place]-3 Fatty Acids [[place]-3] 1 tab PO BID 02/26/23 03/12/23 History Omeprazole [PriLOSEC] 20 mg PO AC-BID 02/26/23 03/12/23 History Topiramate 100 mg PO DAILY 02/26/23 03/12/23 History Amitriptyline HCl [Elavil] 25 mg PO HS 03/12/23 03/12/23 History Allergies Allergy/AdvReac Type Severity Reaction Status Date / Time shellfish derived [Shellfish] Allergy Nausea & Verified 03/12/23 10:39 Vomiting Physical Exam Vitals: Vital Signs Temp Pulse Pulse Resp BP BP Pulse Ox 03/13/23 04:00 98 F 71 18 109/71 96 03/12/23 23:31 65 16 112/65 95 03/12/23 21:06 98 F 69 16 138/86 97 03/12/23 12:17 98.4 F 73 18 141/98 96 03/12/23 09:53 97.6 F 65 18 130/89 100 Intake and Output 03/12/23 03/13/23 03/13/23 22:59 06:59 14:59 Intake Total 240 121.321 Balance 240 121.321 Intake: Intake, IV Titration 121.321 Amount Heparin Sod,Pork in 0.45% 121.321 NaCl 25,000 unit In 0.45 % NaCl 1 250ml.bag @ 9.38 UNITS/KG/HR 9.999 mls/hr IV .Q24H [facility] Rx#: [id number] Oral 240 Other: # Voids 1 Weight 106.594 kg Results 03/13/23 05:40 03/13/23 05:40 Cardiac Enzymes 03/12/23 03/12/23 03/12/23 Range/Units 10:21 10:21 12:50 AST 23 (17-59) U/L Troponin I 0.267 H* 0.715 H* (0.000-0.034) ng/mL 03/12/23 Range/Units 16:34 AST (17-59) U/L Troponin I 0.778 H* (0.000-0.034) ng/mL Coagulation 03/12/23 03/12/23 03/12/23 Range/Units 10:21 16:34 22:38 PT 10.2 (9.0-12.0) sec APTT 24.7 32.2 H 27.6 (22.0-30.0) sec 03/13/23 03/13/23 Range/Units 05:40 05:40 PT 10.7 (9.0-12.0) sec APTT 43.9 H (22.0-30.0) sec CBC 03/12/23 03/13/23 Range/Units 10:21 05:40 WBC 7.9 7.9 (3.8-10.6) k/uL RBC 5.36 5.29 (4.30-5.90) m/uL Hgb 15.8 15.6 (13.0-17.5) gm/dL Hct 47.9 47.8 (39.0-53.0) % Plt Count 218 222 (150-450) k/uL Comprehensive Metabolic Panel 03/12/23 03/13/23 Range/Units 10:21 05:40 Sodium 140 140 (137-145) mmol/L Potassium 4.6 4.2 (3.5-5.1) mmol/L Chloride 110 H 110 H (98-107) mmol/L Carbon Dioxide 22 21 L (22-30) mmol/L BUN 21 H 19 (9-20) mg/dL Creatinine 1.25 1.13 (0.66-1.25) mg/dL Glucose 115 H 117 H (74-99) mg/dL Calcium 8.7 8.8 (8.4-10.2) mg/dL AST 23 (17-59) U/L ALT 52 H (4-49) U/L Alkaline Phosphatase 72 (38-126) U/L Total Protein 6.8 (6.3-8.2) g/dL Albumin 4.1 (3.5-5.0) g/dL Current Medications Generic Name Dose Route Start Last Admin Trade Name Freq PRN Reason Stop Dose Admin Amitriptyline HCl 25 mg 03/12/23 21:00 03/12/23 21:19 Amitriptyline Hcl 25 Mg Tab PO 12.5 mg HS ANA Administration Aspirin 81 mg 03/12/23 14:15 03/12/23 14:21 Aspirin 81 Mg PO Not Given DAILY ANA Atorvastatin Calcium 40 mg 03/12/23 21:00 03/12/23 21:19 Atorvastatin 40 Mg Tab PO 40 mg HS ANA Administration Heparin Sodium (Porcine) 0 unit 03/12/23 11:14 03/12/23 23:35 Heparin Sodium 1,000 Un/Ml (10ml Vl) IV 4,000 unit PER PROTOCOL PRN Administration Low PTT Protocol Heparin Sodium/Sodium Chloride 250 mls @ 9.999 mls/hr 03/12/23 11:15 03/12/23 23:35 25,000 unit/ Sodium Chloride IV 12.38 units/kg/hr .Q24H ANA 13.196 mls/hr Titration Protocol 9.38 UNITS/KG/HR Losartan Potassium 25 mg 03/12/23 14:15 03/12/23 14:26 Losartan 25 Mg Tab PO 25 mg DAILY ANA Administration Metoprolol Tartrate 25 mg 03/12/23 21:00 03/12/23 21:19 Metoprolol Tartrate 25 Mg Tab PO 25 mg BID ANA Administration Naloxone HCl 0.2 mg 03/12/23 11:25 Naloxone 0.4 Mg/Ml 1 Ml Vial IV Q2M PRN Opioid Reversal Nitroglycerin 0.5 inch 03/12/23 11:15 03/12/23 23:31 Nitroglycerin Oint 1 Inch/Gm Packet TOPICAL 0.5 inch Q8HR ANA Administration Lisdexamfetamine 30 tab 03/13/23 09:00 Dimesylate [Vyvanse] PO 30 Mg Capsule DAILY [facility] Pantoprazole Sodium 40 mg 03/12/23 17:30 03/13/23 06:13 Pantoprazole 40 Mg Tablet PO 40 mg AC-BID ANA Administration Topiramate 100 mg 03/13/23 09:00 Topiramate 100 Mg Tab PO DAILY ANA Intake and Output 03/12/23 03/13/23 03/13/23 22:59 06:59 14:59 Intake Total 240 121.321 Balance 240 121.321 Intake: Intake, IV Titration 121.321 Amount Heparin Sod,Pork in 0.45% 121.321 NaCl 25,000 unit In 0.45 % NaCl 1 250ml.bag @ 9.38 UNITS/KG/HR 9.999 mls/hr IV .Q24H [facility] Rx#: [id number] Oral 240 Other: # Voids 1 Weight 106.594 kg 03/13/23 05:40 03/13/23 05:40
[2023-03-13] MEDS ORDERED: SODIUM CHLORIDE 0.9% 1,000 ML IV ONE (12:45)
[2023-03-13] MEDS ORDERED: RX INFO: IV CONTRAST WAS GIVEN 1 EACH MISC MISCELLANE PRN (13:09)
[2023-03-13] MEDS ORDERED: SODIUM CHLORIDE 0.9% 1,000 ML IV SCH (13:15)
--- NOTE | 2023-03-13 13:21 | P.PCN ---
Date of Procedure: 03/13/23 Operative Findings: CARDIAC CATHETERIZATION PERFORMING PHYSICIAN: Ulices Burnette MD, RPVI PROCEDURE PERFORMED: 1. Selective right and left coronary angiogram 2. Intracoronary injection of nitroglycerin and nicardipine and verapamil 3. Ultrasound-guided access of the right common femoral artery and the right common femoral artery angiogram INDICATION: Acute non-ST elevation myocardial infarction. The patient is a 77-year-old gentleman with hypertension who presented to the hospital with chest discomfort and ruled in for acute coronary event. A week ago and because he was experiencing discomfort in the chest he underwent a heart catheterization that revealed normal coronaries. COMPLICATION: None APPROACH: Right common femoral artery LEVEL OF SEDATION: Moderate with sedation in length of 77 minutes PROCEDURE DESCRIPTION: After obtaining an informed consent, the patient was brought to cardiac malth[place] laborer. Attempting accessing the right radial artery was unsuccessful. I decided to go from the right groin. The right groin was numbed using lidocaine subcutaneously. Subsequently the right common femoral artery was cannulated using micropuncture technique under ultrasound guidance, the micropuncture wire passed easily and I placed a 6-Mexican sheath. After that I did selective left and right coronary angiogram using a JL 3.5 and JR4 catheters. The left coronary angiogram revealed severe mid LAD and diagonal vasospasm. We gave the patient about 400 g of nitroglycerin as well as he was given nitroglycerin sublingual and also he was given nicardipine and verapamil. The spasm got worse and was 90% went to about 99.9%. The patient blood pressure dropped significantly during the procedure. Fluid was opened. We DC the nitroglycerin IV. We gave the patient vasopressors. Finally the patient pressure stabilized. Please note that throughout the case he was completely asymptomatic in terms of chest pain or chest discomfort and no ST changes noted as well. The procedure was completed there was no complication. SELECTIVE CORONARY ANGIOGRAM: The right coronary artery: Large-caliber vessel and a dominant vessel. The RCA is angiographically normal. Distally bifurcates into PDA and PLV branches both appeared to be angiographically normal. Left main: Appeared to have spasm in the mid shaft as well as ostial. The left circumflex: Large caliber vessel and nondominant vessel. The LCx also appears to have some spasm in the proximal portion. No occlusive disease was identified. The left anterior descending artery: The mid LAD appears to have spasm in the range of 90%. Also the LAD in the midportion gives rise into a large diagonal branch which also has a spasm appeared to be in the range of 80%. CONCLUSION: 1. Extreme case of coronary vasospasm involving the left coronary system worse by the mid LAD with spasm up to about 99.9%. POSTPROCEDURE MANAGEMENT: Consider antispasm medication including oral nitrate and calcium channel kaitlynn using verapamil. Stop beta kaitlynn. Consider dual antiplatelet therapy giving that the patient ruled in for acute non-ST elevation myocardial infarction. Monitor the patient in the intensive care unit.
[2023-03-13 14:42] LABS: Glucose,Whole Blood 75 mg/dL (70-110)
[2023-03-13] MEDS: HEPARIN SOD,PORK IN 0.45% NACL 25,000 UNIT in 0.45% NACL 1 250ML.BAG IV SCH (15:03)
[2023-03-13] MEDS: VERAPAMIL 40 MG TAB PO SCH ×2 (16:09→21:10)
[2023-03-13] MEDS: ATORVASTATIN 40 MG TAB PO SCH (21:10)
[2023-03-13] MEDS: ALPRAZolam 0.5 MG TAB PO PRN (21:11)
[2023-03-13] MEDS: AMITRIPTYLINE HCL 25 MG TAB PO SCH (21:11)
[2023-03-13] MEDS: HEPARIN SODIUM 1,000 UN/ML (10ML VL) IV PRN (21:32)
[2023-03-14] MEDS: PANTOPRAZOLE 40 MG TABLET PO SCH ×2 (06:51→16:05)
[2023-03-14 08:32] LABS: Basophils % (A) 0 %; Eosinophils # (A) 0.1 k/uL (0-0.7); Eosinophils % (A) 1 %; HCT 46.4 % (39.0-53.0); HGB 14.8 gm/dL (13.0-17.5); Lymphocytes # (A) 1.5 k/uL (1.0-4.8); Lymphocytes % (A) 17 %; MCV 90.8 fL (80.0-100.0); Mean Platelet Volume 9.5; Monocytes # (A) 0.4 k/uL (0-1.0); Monocytes % (A) 5 %; Neutrophils # (A) 6.8 k/uL (1.3-7.7); Neutrophils % (A) 76 %; Platelet Count 215 k/uL (150-450); RDW 13.5 % (11.5-15.5); WBC 8.9 k/uL (3.8-10.6)
[2023-03-14 08:46] LABS: Potassium 4.4 mmol/L (3.5-5.1)
[2023-03-14] MEDS: VERAPAMIL 40 MG TAB PO SCH (08:58)
[2023-03-14] MEDS: TOPIRAMATE 100 MG TAB PO SCH (08:58)
[2023-03-14] MEDS: ASPIRIN 81 MG PO SCH (08:58)
[2023-03-14] MEDS: Lisdexamfetamine Dimesylate [Vyvanse] 30 MG Capsule PO SCH (08:59)
[2023-03-14] MEDS: CLOPIDOGREL 75 MG TAB PO SCH (08:59)
[2023-03-14] MEDS ORDERED: ISOSORBIDE MONONITRATE ER 30 MG TAB.ER.24H PO SCH (09:00)
[2023-03-14] MEDS ORDERED: VERAPAMIL SR 120 MG TABLET.ER PO STA (10:58)
--- NOTE | 2023-03-14 11:40 | P.PN ---
Subjective Progress Note Date: 03/14/23 The patient is a 37-year-old male who presented to the hospital with acute onset of chest discomfort. The patient recently underwent coronary angiogram which showed normal coronary arteries, however during his current admission he did have elevated troponin level and therefore was ruled in for non-ST elevated myocardial infarction. During his angiogram, the patient developed severe coronary spasm of the mid LAD. Nicardipine, nitroglycerin, and verapamil were given in addition to IV fluids for hypotension. Vasopressors were used to stabilize the patient. The patient was interviewed and examined resting comfortably in the ICU bed. He has not had any chest discomfort overnight. No difficulty breathing. No dizziness or lightheadedness when standing. He reports some pain in his right groin. GENERAL: Well-appearing, well-nourished and in no acute distress. NECK: Supple without JVD or thyromegaly. LUNGS: Breath sounds clear to auscultation bilaterally. Respiration equal and unlabored. No wheezes, rales or rhonchi. HEART: Regular rate and rhythm without murmurs, rubs or gallops. S1 and S2 heard. EXTREMITIES: Normal range of motion, no edema. No clubbing or cyanosis. Peripheral pulses intact and strong. Right radial site is mildly bruised. Right groin site is tender to touch, however no evidence of hematoma or bruising. VITALS: Blood pressure 132/77, pulse 67, SpO2 93% on room air. Respiratory rate 12 TELEMETRY: Sinus rhythm overnight. Nighttime bradycardia in the 50s. LABS: WBC 8.9, hemoglobin 14.8, hematocrit 46.4, platelet 2:15, sodium 138, potassium 4.4, BUN 13, creatinine 1.38, magnesium 2.0 IMPRESSION: Non-ST elevated myocardial infarction Severe coronary vasospasm with 99% LAD stenosis Hypertension History of PFO closure PLAN: Increase isosorbide to 30 mg twice daily Switch to long-acting verapamil, however patient should continue to get afternoon dose of short acting Continue heparin for 48 hours Further recommendations to be based upon clinical course I am dictating on behalf of Dr Rubin Jon's history/physical and assessment/plan. Objective - Vital Signs Vital signs: Vital Signs Temp 98.2 F 03/14/23 08:00 Pulse 75 03/14/23 11:00 Resp 15 03/14/23 11:00 BP 120/68 03/14/23 11:00 Pulse Ox 98 03/14/23 11:00 FiO2 Intake & Output 03/13/23 03/14/23 03/14/23 18:59 06:59 18:59 Intake Total 1201 194.833 450 Output Total 800 1200 0 Balance 401 -1005.167 450 Weight 108 kg Intake: IV 901 Intake, IV Titration 300 194.833 Amount Heparin Sod,Pork in 0.45% 64.833 NaCl 25,000 unit In 0.45 % NaCl 1 250ml.bag @ 9. 381 UNITS/KG/HR 10 mls/hr IV .Q24H [facility] Rx#: [id number] Sodium Chloride 0.9% 1, 300 130 000 ml @ 75 mls/hr IV . [id number] [facility] Rx#:[id number] Oral 450 Output: Urine 800 1200 0 Other: Voiding Method Urinal Urinal - Labs CBC & Chem 7: 03/14/23 08:16 03/14/23 08:16 Labs: Abnormal Lab Results - Last 24 Hours (Table) 03/14/23 03/14/23 Range/Units 03:19 08:16 APTT 51.3 H (22.0-30.0) sec Creatinine 1.35 H (0.66-1.25) mg/dL Glucose 168 H (74-99) mg/dL
--- NOTE | 2023-03-14 11:51 | P.PN ---
Subjective Progress Note Date: 03/14/23 Hospital Course: 37-year-old male with history of TIA/CVA, PFO status post repair presenting with intermittent chest pain. In the ED, temperature 97.6, blood pressure 130/89, saturating under percent on room air, pulse 65, respiratory rate 18. CBC was unremarkable, potassium 4.6, magnesium 1.9, BUN 21, creatinine 1.25, troponin 0.267, increased to 0.715. Chest x-ray shows no acute process. EKG shows normal sinus rhythm. Patient admitted for non-ST elevation NV. Cardiology consulted. Currently on heparin drip. Echocardiogram showed LVEF 50-55%. Cardiac cath showed extreme case of coronary vasospasm involving the left coronary system worse by the mid LAD with spasm up to about 99.9%. Patient started on nitrates as well as calcium channel kaitlynn. Subjective: Patient examined at bedside. No acute events overnight. Claims that his chest discomfort has resolved. He denies any shortness of breath palpitations, abdominal pain, bowel or urinary complaints. Pertinent positives and negatives as discussed above, a complete review of systems was performed and all other systems are negative. Vitals Signs Reviewed. General: nontoxic, no distress, appears at stated age Derm: warm, dry Head: atraumatic, normocephalic, symmetric Eyes: EOMI, no lid lag, anicteric sclera Mouth: no lip lesion, mucus membranes moist Cardiovascular: S1S2 reg, no murmur Lungs: CTA bilateral, no rhonchi, no rales , no accessory muscle use Abdominal: soft, nontender to palpation, no guarding, no appreciable organomegaly Ext: no gross muscle atrophy, no edema, no contractures Neuro: CN II-XI grossly intact, no focal neuro deficits Psych: Alert, oriented, appropriate affect Data Reviewed Today: Pertinent Labs: WBC 8.9, hemoglobin 14.8, potassium 4.4, creatinine 1.35, magnesium 2 Assessment and Plan: Patient currently in the medical ICU, critically ill. Active: Non-ST elevation NV Coronary vasospasm Elevated left-sided filling pressure Prerenal azotemia, resolved -Cardiology note reviewed, increase isosorbide to 30 mg twice daily, also on long-acting verapamil, continue heparin drip for 48 hours. -Cardiac cath showed severe coronary vasospasm involving the left coronary s ystem worse by the mid LAD with spasm up to 99.9%. -Patient claims that he gets ADHD medication prescribed by a neurologist, will need to be titrated down, and switch to a different medication given severe coronary vasospasm -Aspirin 81 mg, atorvastatin 40 mg -Continue telemetry -Heparin drip, monitor for any bleeding -CBC and BMP tomorrow Chronic: ADHD Migraine headaches GERD Hypertension DVT ppx: heparin gtt Code status: full code Anticipated discharge place: home Anticipated discharge time: pending clinical course Objective - Vital Signs Vital signs: Vital Signs Temp 98.2 F 03/14/23 08:00 Pulse 75 03/14/23 11:00 Resp 15 03/14/23 11:00 BP 120/68 03/14/23 11:00 Pulse Ox 98 03/14/23 11:00 FiO2 Intake & Output 03/13/23 03/14/23 03/14/23 18:59 06:59 18:59 Intake Total 1201 194.833 450 Output Total 800 1200 0 Balance 401 -1005.167 450 Weight 108 kg Intake: IV 901 Intake, IV Titration 300 194.833 Amount Heparin Sod,Pork in 0.45% 64.833 NaCl 25,000 unit In 0.45 % NaCl 1 250ml.bag @ 9. 381 UNITS/KG/HR 10 mls/hr IV .Q24H [facility] Rx#: [id number] Sodium Chloride 0.9% 1, 300 130 000 ml @ 75 mls/hr IV . [id number] [facility] Rx#:[id number] Oral 450 Output: Urine 800 1200 0 Other: Voiding Method Urinal Urinal - Labs CBC & Chem 7: 03/14/23 08:16 03/14/23 08:16 Labs: Abnormal Lab Results - Last 24 Hours (Table) 03/14/23 03/14/23 Range/Units 03:19 08:16 APTT 51.3 H (22.0-30.0) sec Creatinine 1.35 H (0.66-1.25) mg/dL Glucose 168 H (74-99) mg/dL
[2023-03-14] MEDS: HEPARIN SOD,PORK IN 0.45% NACL 25,000 UNIT in 0.45% NACL 1 250ML.BAG IV SCH (12:29)
[2023-03-14] MEDS ORDERED: VERAPAMIL 40 MG TAB PO ONE (16:00)
[2023-03-14] MEDS: ACETAMINOPHEN TAB 325 MG TAB PO PRN (16:07)
[2023-03-14] MEDS: ISOSORBIDE MONONITRATE ER 30 MG TAB.ER.24H PO SCH (20:34)
[2023-03-14] MEDS: ATORVASTATIN 40 MG TAB PO SCH (20:34)
[2023-03-14] MEDS: AMITRIPTYLINE HCL 25 MG TAB PO SCH (20:34)
[2023-03-15 03:44] LABS: Basophils % (A) 0 %; Eosinophils # (A) 0.2 k/uL (0-0.7); Eosinophils % (A) 2 %; HCT 44.2 % (39.0-53.0); HGB 14.4 gm/dL (13.0-17.5); Lymphocytes # (A) 2.3 k/uL (1.0-4.8); Lymphocytes % (A) 29 %; MCHC 32.6 g/dL (31.0-37.0); MCV 88.7 fL (80.0-100.0); Mean Platelet Volume 9.2; Monocytes # (A) 0.4 k/uL (0-1.0); Monocytes % (A) 5 %; Neutrophils # (A) 4.9 k/uL (1.3-7.7); Neutrophils % (A) 62 %; Platelet Count 203 k/uL (150-450); RBC 4.98 m/uL (4.30-5.90); RDW 13.7 % (11.5-15.5); WBC 7.9 k/uL (3.8-10.6)
[2023-03-15 03:54] LABS: Calcium 8.9 mg/dL (8.4-10.2); Potassium 3.9 mmol/L (3.5-5.1)
[2023-03-15] MEDS: HEPARIN SODIUM 1,000 UN/ML (10ML VL) IV PRN (04:11)
[2023-03-15] MEDS: HEPARIN SOD,PORK IN 0.45% NACL 25,000 UNIT in 0.45% NACL 1 250ML.BAG IV SCH (04:13)
[2023-03-15] MEDS: PANTOPRAZOLE 40 MG TABLET PO SCH ×2 (06:37→16:10)
[2023-03-15] MEDS: Lisdexamfetamine Dimesylate [Vyvanse] 30 MG Capsule PO SCH (07:44)
[2023-03-15] MEDS ORDERED: NITROGLYCERIN OINT 1 INCH/GM PACKET TOPICAL STA (08:13)
[2023-03-15] MEDS: ASPIRIN 81 MG PO SCH (08:28)
[2023-03-15] MEDS: ISOSORBIDE MONONITRATE ER 30 MG TAB.ER.24H PO SCH ×2 (08:28→20:11)
[2023-03-15] MEDS: TOPIRAMATE 100 MG TAB PO SCH (08:28)
[2023-03-15] MEDS: CLOPIDOGREL 75 MG TAB PO SCH (08:28)
[2023-03-15] MEDS: MORPHINE SULFATE 2 MG/ML SYRINGE IVP PRN ×2 (10:52→16:08)
[2023-03-15] MEDS: ALPRAZolam 0.5 MG TAB PO PRN ×3 (10:52→22:47)
--- NOTE | 2023-03-15 11:08 | P.PN ---
Subjective Progress Note Date: 03/15/23 This is Jerad Sánchez NP, I'm dictating on behalf of Dr. Jon's H&P and A&P. Patient was interviewed and examined. The patient is a 37-year-old male who presented to the hospital with acute onset of chest discomfort. The patient recently underwent coronary angiogram which showed normal coronary arteries, however during his current admission he did have elevated troponin level and therefore was ruled in for non-ST elevated myocardial infarction. During his angiogram, the patient developed severe coronary spasm of the mid LAD. Nicardipine, nitroglycerin, and verapamil were given in addition to IV fluids for hypotension. Vasopressors were used to stabilize the patient. Today the patient is found resting comfortably in bed. He does continue to report having intermittent chest pain throughout the night. Goal right now is to maximize vasodilators and antispasmodics without decrease in blood pressure too much. At the time of this exam the patient is denying chest pain, shortness of breath, palpitations. GENERAL: Well-appearing, well-nourished and in no acute distress. NECK: Supple without JVD or thyromegaly. LUNGS: Breath sounds clear to auscultation bilaterally. Respiration equal and unlabored. No wheezes, rales or rhonchi. HEART: Regular rate and rhythm without murmurs, rubs or gallops. S1 and S2 heard. EXTREMITIES: Normal range of motion, no edema. No clubbing or cyanosis. Peripheral pulses intact and strong. VITALS: Temp 98.0, pulse 63, respirations 16, blood pressure 116/75, O2 saturation 90% TELEMETRY: Normal sinus rhythm LABS: White count 7.9, hemoglobin 14.4, platelets 203, sodium 138, potassium 3.9, B1 14, creatinine 1.35, calcium 8.9 IMPRESSION: 1. Non-ST elevated myocardial infarction 2. Severe coronary vasospasm with 99% LAD stenosis 3. Hypertension 4. History of PFO closure PLAN: Continue isosorbide 30 mg twice daily, morning and evening. Procardia XL 30 mg daily, give dose in between isosorbide doses. Continue to monitor blood pressure and heart rate. Patient may be transferred to the cardiac floor. Objective - Vital Signs Vital signs: Vital Signs Temp 98 F 03/15/23 08:00 Pulse 80 03/15/23 10:30 Resp 11 L 03/15/23 10:30 BP 129/88 03/15/23 10:30 Pulse Ox 94 L 03/15/23 10:30 FiO2 Intake & Output 03/14/23 03/15/23 03/15/23 18:59 06:59 18:59 Intake Total 1835.167 727.739 450 Output Total 650 800 0 Balance 1185.167 -72.261 450 Weight 108.4 kg Intake: Intake, IV Titration 185.167 227.739 Amount Heparin Sod,Pork in 0.45% 185.167 207.739 NaCl 25,000 unit In 0.45 % NaCl 1 250ml.bag @ 9. 381 UNITS/KG/HR 10 mls/hr IV .Q24H [facility] Rx#: [id number] Sodium Chloride 0.9% 1, 20 000 ml @ 75 mls/hr IV . [id number] [facility] Rx#:[id number] Oral 1650 500 450 Output: Urine 650 800 0 Other: Voiding Method Urinal Urinal # Bowel Movements 1 - Labs CBC & Chem 7: 03/15/23 03:11 03/15/23 03:11 Labs: Abnormal Lab Results - Last 24 Hours (Table) 03/15/23 03/15/23 03/15/23 Range/Units 03:11 03:11 09:44 APTT 41.8 H 50.6 H (22.0-30.0) sec Chloride 108 H (98-107) mmol/L Creatinine 1.35 H (0.66-1.25) mg/dL
--- NOTE | 2023-03-15 11:44 | P.PN ---
Subjective Progress Note Date: 03/15/23 Hospital Course: 37-year-old male with history of TIA/CVA, PFO status post repair presenting with intermittent chest pain. In the ED, temperature 97.6, blood pressure 130/89, saturating under percent on room air, pulse 65, respiratory rate 18. CBC was unremarkable, potassium 4.6, magnesium 1.9, BUN 21, creatinine 1.25, troponin 0.267, increased to 0.715. Chest x-ray shows no acute process. EKG shows normal sinus rhythm. Patient admitted for non-ST elevation PA. Cardiology consulted. Currently on heparin drip. Echocardiogram showed LVEF 50-55%. Cardiac cath showed extreme case of coronary vasospasm involving the left coronary system worse by the mid LAD with spasm up to about 99.9%. Patient started on nitrates as well as calcium channel kaitlynn. Patient still having in termittent chest pain. Subjective: Patient examined at bedside. No acute events overnight. He has intermittent chest pain.. He denies any shortness of breath palpitations, abdominal pain, bowel or urinary complaints. Pertinent positives and negatives as discussed above, a complete review of s ystems was performed and all other systems are negative. Vitals Signs Reviewed. General: nontoxic, no distress, appears at stated age Derm: warm, dry Head: atraumatic, normocephalic, symmetric Eyes: EOMI, no lid lag, anicteric sclera Mouth: no lip lesion, mucus membranes moist Cardiovascular: S1S2 reg, no murmur Lungs: CTA bilateral, no rhonchi, no rales , no accessory muscle use Abdominal: soft, nontender to palpation, no guarding, no appreciable organomegaly Ext: no gross muscle atrophy, no edema, no contractures Neuro: CN II-XI grossly intact, no focal neuro deficits Psych: Alert, oriented, appropriate affect Data Reviewed Today: Pertinent Labs: WBC 7.9, hemoglobin 14.4, potassium 3.9, creatinine 1.35 Assessment and Plan: Patient currently in the medical ICU, critically ill. Active: Non-ST elevation PA Coronary vasospasm Elevated left-sided filling pressure Prerenal azotemia, resolved -Cardiology note reviewed, continue isosorbide to 30 mg twice daily, started on nifedipine 30 mg daily, continue heparin drip for 48 hours -Also given Nitropaste, morphine 2 mg IV every 6 hours as needed -Aspirin 81 mg, atorvastatin 40 mg -Continue telemetry -Heparin drip, monitor for any bleeding -CBC and BMP tomorrow -Patient to be likely transfer to stepdown Chronic: ADHD Migraine headaches GERD Hypertension DVT ppx: heparin gtt Code status: full code Anticipated discharge place: home Anticipated discharge time: pending clinical course Objective - Vital Signs Vital signs: Vital Signs Temp 98 F 03/15/23 08:00 Pulse 71 03/15/23 11:00 Resp 6 L 03/15/23 11:00 BP 147/89 03/15/23 11:00 Pulse Ox 94 L 03/15/23 11:00 FiO2 Intake & Output 03/14/23 03/15/23 03/15/23 18:59 06:59 18:59 Intake Total 1835.167 727.739 450 Output Total 650 800 0 Balance 1185.167 -72.261 450 Weight 108.4 kg Intake: Intake, IV Titration 185.167 227.739 Amount Heparin Sod,Pork in 0.45% 185.167 207.739 NaCl 25,000 unit In 0.45 % NaCl 1 250ml.bag @ 9. 381 UNITS/KG/HR 10 mls/hr IV .Q24H [facility] Rx#: [id number] Sodium Chloride 0.9% 1, 20 000 ml @ 75 mls/hr IV . [id number] [facility] Rx#:[id number] Oral 1650 500 450 Output: Urine 650 800 0 Other: Voiding Method Urinal Urinal # Bowel Movements 1 - Labs CBC & Chem 7: 03/15/23 03:11 03/15/23 03:11 Labs: Abnormal Lab Results - Last 24 Hours (Table) 03/15/23 03/15/23 03/15/23 Range/Units 03:11 03:11 09:44 APTT 41.8 H 50.6 H (22.0-30.0) sec Chloride 108 H (98-107) mmol/L Creatinine 1.35 H (0.66-1.25) mg/dL
[2023-03-15] MEDS: NITROGLYCERIN SL TABS 0.4 MG TAB SUBLINGUAL PRN ×4 (12:58→20:14)
[2023-03-15] MEDS: NIFEdipine XL 30 MG TAB.ER.24 PO SCH (12:58)
[2023-03-15] MEDS: ACETAMINOPHEN TAB 325 MG TAB PO PRN ×2 (12:58→22:47)
[2023-03-15] MEDS ORDERED: ONDANSETRON 4 MG/2 ML VIAL IVP PRN (18:08)
[2023-03-15] MEDS: ATORVASTATIN 40 MG TAB PO SCH (20:11)
[2023-03-15] MEDS: AMITRIPTYLINE HCL 25 MG TAB PO SCH (20:12)
[2023-03-15] MEDS: NITROGLYCERIN-D5W PMX 50 MG in DEXTROSE/WATER 1 250ML.BAG IV SCH (20:48)
[2023-03-15 20:56] LABS: C Reactive Protein 1.7 mg/dL (<1.0); Calcium 9.7 mg/dL (8.4-10.2); Magnesium 1.9 mg/dL (1.6-2.3); Potassium 4.2 mmol/L (3.5-5.1)
[2023-03-16 05:31] LABS: Basophils % (A) 0 %; Eosinophils # (A) 0.1 k/uL (0-0.7); Eosinophils % (A) 0 %; HCT 49.1 % (39.0-53.0); HGB 16.3 gm/dL (13.0-17.5); Lymphocytes # (A) 1.2 k/uL (1.0-4.8); Lymphocytes % (A) 9 %; MCH 29.5 pg (25.0-35.0); MCHC 33.3 g/dL (31.0-37.0); MCV 88.6 fL (80.0-100.0); Mean Platelet Volume 9.4; Monocytes # (A) 0.9 k/uL (0-1.0); Monocytes % (A) 6 %; Neutrophils # (A) 11.5 k/uL (1.3-7.7); Neutrophils % (A) 84 %; Platelet Count 234 k/uL (150-450); RBC 5.54 m/uL (4.30-5.90); RDW 13.3 % (11.5-15.5); WBC 13.7 k/uL (3.8-10.6)
[2023-03-16 05:40] LABS: African American GFR (CKD) >90 (>60 ml/min/1.73 sqM); Anion Gap 13 mmol/L; Blood Urea Nitrogen 9 mg/dL (9-20); Calcium 9.5 mg/dL (8.4-10.2); Carbon Dioxide 20 mmol/L (22-30); Chloride 105 mmol/L (98-107); Glucose 137 mg/dL (74-99); Non-African American GFR(CKD) 88 (>60 ml/min/1.73 sqM); Sodium 138 mmol/L (137-145)
[2023-03-16] MEDS: PANTOPRAZOLE 40 MG TABLET PO SCH ×2 (05:52→17:04)
[2023-03-16] MEDS: ALPRAZolam 0.5 MG TAB PO PRN ×2 (05:52→20:39)
[2023-03-16] MEDS: ACETAMINOPHEN TAB 325 MG TAB PO PRN ×3 (05:52→20:41)
[2023-03-16] MEDS: ISOSORBIDE MONONITRATE ER 30 MG TAB.ER.24H PO SCH ×2 (09:35→20:37)
[2023-03-16] MEDS: NIFEdipine XL 30 MG TAB.ER.24 PO SCH ×2 (09:35→20:36)
[2023-03-16] MEDS: TOPIRAMATE 100 MG TAB PO SCH (09:35)
[2023-03-16] MEDS: MORPHINE SULFATE 2 MG/ML SYRINGE IVP PRN ×2 (09:36→23:04)
[2023-03-16] MEDS: CLOPIDOGREL 75 MG TAB PO SCH (09:36)
[2023-03-16] MEDS: ASPIRIN 81 MG PO SCH (09:36)
--- NOTE | 2023-03-16 10:27 | P.PN ---
Subjective Progress Note Date: 03/16/23 Hospital Course: 37-year-old male with history of TIA/CVA, PFO status post repair presenting with intermittent chest pain. In the ED, temperature 97.6, blood pressure 130/89, saturating under percent on room air, pulse 65, respiratory rate 18. CBC was unremarkable, potassium 4.6, magnesium 1.9, BUN 21, creatinine 1.25, troponin 0.267, increased to 0.715. Chest x-ray shows no acute process. EKG shows normal sinus rhythm. Patient admitted for non-ST elevation ID. Cardiology consulted. Currently on heparin drip. Echocardiogram showed LVEF 50-55%. Cardiac cath showed extreme case of coronary vasospasm involving the left coronary system worse by the mid LAD with spasm up to about 99.9%. Patient started on nitrates as well as calcium channel kaitlynn. Patient still having intermittent chest pain. Started on nitroglycerin drip. Remains in the medical ICU. Subjective: Patient examined at bedside. Continues to have chest pain. He denies any shortness of breath palpitations, abdominal pain, bowel or urinary complaints. Pertinent positives and negatives as discussed above, a complete review of systems was performed and all other systems are negative. Vitals Signs Reviewed. General: nontoxic, no distress, appears at stated age Derm: warm, dry Head: atraumatic, normocephalic, symmetric Eyes: EOMI, no lid lag, anicteric sclera Mouth: no lip lesion, mucus membranes moist Cardiovascular: S1S2 reg, no murmur Lungs: CTA bilateral, no rhonchi, no rales , no accessory muscle use Abdominal: soft, nontender to palpation, no guarding, no appreciable organomegaly Ext: no gross muscle atrophy, no edema, no contractures Neuro: CN II-XI grossly intact, no focal neuro deficits Psych: Alert, oriented, appropriate affect Data Reviewed Today: Pertinent Labs: WBC 13.7, potassium 4, creatinine 1.08 Assessment and Plan: Patient currently in the medical ICU, critically ill. Active: Non-ST elevation ID Coronary vasospasm Elevated left-sided filling pressure Prerenal azotemia, resolved ADHD Leukocytosis, likely reactive -Cardiology following, patient started on nitroglycerin drip, needs close hemodynamic monitoring -continue isosorbide mononitrate 30 mg twice daily,on nifedipine 30 mg daily, heparin drip discontinued -on morphine 2 mg IV every 6 hours as needed -Aspirin 81 mg, atorvastatin 40 mg -ADHD medication discontinued -Continue telemetry -CBC and BMP tomorrow Chronic: Migraine headaches GERD Hypertension DVT ppx: SQ heparin Code status: full code Anticipated discharge place: home Anticipated discharge time: pending clinical course Objective - Vital Signs Vital signs: Vital Signs Temp 98.6 F 03/16/23 08:00 Pulse 108 H 03/16/23 08:00 Resp 26 H 03/16/23 08:00 BP 142/92 03/16/23 08:00 Pulse Ox 99 03/16/23 08:00 FiO2 Intake & Output 03/15/23 03/16/23 03/16/23 18:59 06:59 18:59 Intake Total 1072.962 34.975 Output Total 900 1400 Balance 172.962 -1365.025 Intake: Intake, IV Titration 172.962 34.975 Amount Heparin Sod,Pork in 0.45% 172.962 NaCl 25,000 unit In 0.45 % NaCl 1 250ml.bag @ 9. 381 UNITS/KG/HR 10 mls/hr IV .Q24H [facility] Rx#: [id number] Nitroglycerin-D5w Pmx 50 34.975 mg In Dextrose/Water 1 250ml.bag @ 5 MCG/MIN 1.5 mls/hr IV .Q24H [facility] Rx#: [id number] Oral 900 Output: Urine 900 1400 Other: Voiding Method Urinal - Labs CBC & Chem 7: 03/16/23 04:28 03/16/23 04:28 Labs: Abnormal Lab Results - Last 24 Hours (Table) 03/15/23 03/16/23 03/16/23 Range/Units 20:27 04:28 04:28 WBC 13.7 H (3.8-10.6) k/uL Neutrophils # 11.5 H (1.3-7.7) k/uL Carbon Dioxide 20 L (22-30) mmol/L Creatinine 1.40 H (0.66-1.25) mg/dL Glucose 162 H 137 H (74-99) mg/dL C-Reactive Protein 1.7 H (<1.0) mg/dL
--- NOTE | 2023-03-16 10:47 | P.PN ---
Subjective Progress Note Date: 03/16/23 This is Jerad Sánchez NP, I'm dictating on behalf of Dr. Jon's H&P and A&P. Patient was interviewed and examined. The patient is a 37-year-old male who presented to the hospital with acute onset of chest discomfort. The patient recently underwent coronary angiogram which showed normal coronary arteries, however during his current admission he did have elevated troponin level and therefore was ruled in for non-ST elevated myocardial infarction. During his angiogram, the patient developed severe coronary spasm of the mid LAD. Nicardipine, nitroglycerin, and verapamil were given in addition to IV fluids for hypotension. Vasopressors were used to stabilize the patient. Today the patient is found resting comfortably in a chair. He was continuing to report chest discomfort last night, and was started on nitroglycerin IV. Since that time, the patient reports a cessation of his chest pain. We'll still plan to maximize medical therapy. GENERAL: Well-appearing, well-nourished and in no acute distress. NECK: Supple without JVD or thyromegaly. LUNGS: Breath sounds clear to auscultation bilaterally. Respiration equal and unlabored. No wheezes, rales or rhonchi. HEART: Regular rate and rhythm without murmurs, rubs or gallops. S1 and S2 heard. EXTREMITIES: Normal range of motion, no edema. No clubbing or cyanosis. Peripheral pulses intact and strong. VITALS: Temp 98.6, pulse 108, respirations 14, blood pressure 142/92, O2 saturation 99% on 2 L TELEMETRY: Normal sinus rhythm LABS: White count 13.7, hemoglobin 16.3, platelets 234, sodium 138, potassium 4.0, chloride 105, B1 9, creatinine 1.08, calcium 9.5 IMPRESSION: 1. Non-ST elevated myocardial infarction 2. Severe coronary vasospasm with 99% LAD stenosis 3. Hypertension 4. History of PFO closure PLAN: Continue isosorbide 30 mg twice daily, morning and evening. Increase Procardia XL to 30 mg twice a day. Nitroglycerin IV may be stopped tomorrow morning. Continue to monitor blood pressure and heart rate. Patient may be transferred to the cardiac floor. Objective - Vital Signs Vital signs: Vital Signs Temp 98.6 F 03/16/23 08:00 Pulse 108 H 03/16/23 08:00 Resp 26 H 03/16/23 08:00 BP 142/92 03/16/23 08:00 Pulse Ox 99 03/16/23 08:00 FiO2 Intake & Output 03/15/23 03/16/23 03/16/23 18:59 06:59 18:59 Intake Total 1072.962 34.975 Output Total 900 1400 Balance 172.962 -1365.025 Intake: Intake, IV Titration 172.962 34.975 Amount Heparin Sod,Pork in 0.45% 172.962 NaCl 25,000 unit In 0.45 % NaCl 1 250ml.bag @ 9. 381 UNITS/KG/HR 10 mls/hr IV .Q24H [facility] Rx#: [id number] Nitroglycerin-D5w Pmx 50 34.975 mg In Dextrose/Water 1 250ml.bag @ 5 MCG/MIN 1.5 mls/hr IV .Q24H [facility] Rx#: [id number] Oral 900 Output: Urine 900 1400 Other: Voiding Method Urinal - Labs CBC & Chem 7: 03/16/23 04:28 03/16/23 04:28 Labs: Abnormal Lab Results - Last 24 Hours (Table) 03/15/23 03/16/23 03/16/23 Range/Units 20:27 04:28 04:28 WBC 13.7 H (3.8-10.6) k/uL Neutrophils # 11.5 H (1.3-7.7) k/uL Carbon Dioxide 20 L (22-30) mmol/L Creatinine 1.40 H (0.66-1.25) mg/dL Glucose 162 H 137 H (74-99) mg/dL C-Reactive Protein 1.7 H (<1.0) mg/dL
[2023-03-16] MEDS: HEPARIN SOD,PORK IN 0.45% NACL 25,000 UNIT in 0.45% NACL 1 250ML.BAG IV SCH (15:31)
[2023-03-16] MEDS: HEPARIN SODIUM,PORCINE/PF 5,000 UNIT/0.5 ML SYRINGE SQ SCH (17:04)
[2023-03-16] MEDS: NITROGLYCERIN-D5W PMX 50 MG in DEXTROSE/WATER 1 250ML.BAG IV SCH (20:26)
[2023-03-16] MEDS: AMITRIPTYLINE HCL 25 MG TAB PO SCH (20:36)
[2023-03-16] MEDS: ATORVASTATIN 40 MG TAB PO SCH (20:37)
[2023-03-17] MEDS: HEPARIN SODIUM,PORCINE/PF 5,000 UNIT/0.5 ML SYRINGE SQ SCH ×4 (01:21→23:12)
[2023-03-17] MEDS: PANTOPRAZOLE 40 MG TABLET PO SCH ×2 (07:06→16:58)
[2023-03-17] MEDS: ISOSORBIDE MONONITRATE ER 30 MG TAB.ER.24H PO SCH ×2 (08:49→20:04)
[2023-03-17] MEDS: NIFEdipine XL 30 MG TAB.ER.24 PO SCH ×2 (08:50→20:04)
[2023-03-17] MEDS: CLOPIDOGREL 75 MG TAB PO SCH (08:50)
[2023-03-17] MEDS: TOPIRAMATE 100 MG TAB PO SCH (08:50)
[2023-03-17] MEDS: ASPIRIN 81 MG PO SCH (08:50)
[2023-03-17 09:44] LABS: Basophils % (A) 0 %; Eosinophils # (A) 0.1 k/uL (0-0.7); Eosinophils % (A) 1 %; HGB 16.3 gm/dL (13.0-17.5); Lymphocytes # (A) 1.5 k/uL (1.0-4.8); Lymphocytes % (A) 11 %; MCH 29.9 pg (25.0-35.0); MCHC 33.3 g/dL (31.0-37.0); MCV 89.6 fL (80.0-100.0); Mean Platelet Volume 9.5; Monocytes % (A) 8 %; Neutrophils # (A) 10.7 k/uL (1.3-7.7); Neutrophils % (A) 79 %; Platelet Count 234 k/uL (150-450); RBC 5.47 m/uL (4.30-5.90); RDW 13.6 % (11.5-15.5); WBC 13.6 k/uL (3.8-10.6)
[2023-03-17 09:53] LABS: Calcium 9.5 mg/dL (8.4-10.2); Potassium 4.5 mmol/L (3.5-5.1)
--- NOTE | 2023-03-17 10:28 | P.PN ---
Subjective Progress Note Date: 03/17/23 Pt is doing well today with no new complaints. Ongoing mild o2 requirement of 2L. Still on nitro gtt. Gen: awake, alert HEENT: normocephalic, atraumatic, good hearing acuity, moist mucous membranes Resp: good air exchange, breathing comfortably with no accessory muscle use CVS: good distal perfusion x 4, GI: soft, NTTP, ND : no SPT, no CVAT, bhandari catheter not present MSK: no pitting edema, no clubbing Neuro: non-focal, moving all extremities Psych: cooperative, euthymic mood Hospital course: 37-year-old male with history of TIA/CVA, PFO status post repair presenting with intermittent chest pain. In the ED, temperature 97.6, blood pressure 130/89, saturating under percent on room air, pulse 65, respiratory rate 18. CBC was unremarkable, potassium 4.6, magnesium 1.9, BUN 21, creatinine 1.25, troponin 0.267, increased to 0.715. Chest x-ray shows no acute process. EKG shows normal sinus rhythm. Patient admitted for non-ST elevation HI. Cardiology consulted. Currently on heparin drip. Echocardiogram showed LVEF 50-55%. Cardiac cath showed extreme case of coronary vasospasm involving the left coronary system worse by the mid LAD with spasm up to about 99.9%. Patient started on nitrates as well as calcium channel kaitlynn. Started on nitroglycerin drip. Patient was stepped down to the cardiac floor. Assessment: Coronary vasospasm Elevated troponin secondary to coronary vasospasm (Type I NSTEMI ruled out) Elevated left-sided filling pressure Acute kidney injury ADHD Leukocytosis, likely reactive Plan: Today, patient is afebrile, 97/65, heart rate 114, 96% on 2 L nasal cannula White blood cell count is 13.6 Creatinine is 1.48, increased from 1.08 Ordered CBC, basic metabolic panel, magnesium for tomorrow Wean patient off nitro drip Continue Imdur at 30 mg by mouth twice a day Would recommend discontinuing aspirin 81 mg daily, Plavix 75 mg daily, Lipitor in light of no coronary artery disease on left heart cath, will defer to cardiology Continue nifedipine 30mg XL BID Patient is full code Objective - Vital Signs Vital signs: Vital Signs Temp 98.6 F 03/17/23 08:00 Pulse 114 H 03/17/23 08:00 Resp 16 03/17/23 08:00 BP 97/65 03/17/23 08:00 Pulse Ox 96 03/17/23 08:00 FiO2 Intake & Output 03/16/23 03/17/23 03/17/23 18:59 06:59 18:59 Intake Total 900 Output Total 1600 500 Balance -700 -500 Intake: Oral 900 Output: Urine 1600 500 Other: Voiding Method Urinal # Voids 2 - Labs CBC & Chem 7: 03/17/23 08:39 03/17/23 08:39 Labs: Abnormal Lab Results - Last 24 Hours (Table) 03/17/23 03/17/23 Range/Units 08:39 08:39 WBC 13.6 H (3.8-10.6) k/uL Neutrophils # 10.7 H (1.3-7.7) k/uL Creatinine 1.48 H (0.66-1.25) mg/dL Glucose 112 H (74-99) mg/dL
--- NOTE | 2023-03-17 13:12 | P.PN ---
Subjective Progress Note Date: 03/17/23 HISTORY OF PRESENT ILLNESS: This is a 37-year-old male who underwent cardiac catheterization with Dr. Burnette revealing coronary vasospasm involving the left coronary system worse by the mid LAD with spasm up to 99.9%. Patient examined this morning at the bedside. Patient denies any further episodes of chest pain or pressure. He denies shortness of breath. Vital signs are stable. PHYSICAL EXAM: VITAL SIGNS: Reviewed. GENERAL: Well-developed in no acute distress. NECK: Supple. No JVD or thyromegaly LUNGS: Respirations even and unlabored. Lungs essentially clear to auscultation bilaterally. HEART: Regular rate and rhythm. S1 and S2 heard. EXTREMITIES: Normal range of motion. No clubbing or cyanosis. Peripheral pulses intact. No lower extremity edema ASSESSMENT: Non-STEMI Severe coronary vasospasm with 99% LAD stenosis Hypertension History of PFO closure PLAN: Continue current cardiac medications Increase activity as tolerated Patient may be discharged home today from a cardiac standpoint with close outpatient follow-up Nurse practitioner note has been reviewed by physician. Signing provider agrees with the documented findings, assessment, and plan of care. Objective - Vital Signs Vital signs: Vital Signs Temp 97.8 F 03/17/23 12:00 Pulse 112 H 03/17/23 12:00 Resp 18 03/17/23 12:00 BP 107/70 03/17/23 12:00 Pulse Ox 96 03/17/23 12:00 FiO2 Intake & Output 03/16/23 03/17/23 03/17/23 18:59 06:59 18:59 Intake Total 900 180 Output Total 1600 500 Balance -700 -500 180 Intake: Oral 900 180 Output: Urine 1600 500 Other: Voiding Method Urinal Urinal # Voids 2 2 - Labs CBC & Chem 7: 03/17/23 08:39 03/17/23 08:39 Labs: Abnormal Lab Results - Last 24 Hours (Table) 03/17/23 03/17/23 Range/Units 08:39 08:39 WBC 13.6 H (3.8-10.6) k/uL Neutrophils # 10.7 H (1.3-7.7) k/uL Creatinine 1.48 H (0.66-1.25) mg/dL Glucose 112 H (74-99) mg/dL
[2023-03-17] MEDS: ACETAMINOPHEN TAB 325 MG TAB PO PRN ×2 (13:30→20:07)
[2023-03-17] MEDS: ATORVASTATIN 40 MG TAB PO SCH (20:05)
[2023-03-17] MEDS: AMITRIPTYLINE HCL 25 MG TAB PO SCH (20:05)
[2023-03-17] MEDS: ALPRAZolam 0.5 MG TAB PO PRN (20:07)
[2023-03-18] MEDS: PANTOPRAZOLE 40 MG TABLET PO SCH (06:07)
[2023-03-18] MEDS: ASPIRIN 81 MG PO SCH (08:36)
[2023-03-18] MEDS: HEPARIN SODIUM,PORCINE/PF 5,000 UNIT/0.5 ML SYRINGE SQ SCH (08:36)
[2023-03-18] MEDS: TOPIRAMATE 100 MG TAB PO SCH (08:36)
[2023-03-18] MEDS: CLOPIDOGREL 75 MG TAB PO SCH (08:36)
[2023-03-18] MEDS: ISOSORBIDE MONONITRATE ER 30 MG TAB.ER.24H PO SCH (08:36)
[2023-03-18] MEDS: NIFEdipine XL 30 MG TAB.ER.24 PO SCH (08:36)
[2023-03-18 08:41] VITALS: BP 105/75; PULSE 111; RESP 16; TEMP 98.1
[2023-03-18 09:23] LABS: Basophils % (A) 0 %; Eosinophils # (A) 0.1 k/uL (0-0.7); Eosinophils % (A) 1 %; HGB 16.4 gm/dL (13.0-17.5); Lymphocytes # (A) 1.7 k/uL (1.0-4.8); Lymphocytes % (A) 15 %; MCH 29.8 pg (25.0-35.0); MCHC 33.4 g/dL (31.0-37.0); MCV 89.2 fL (80.0-100.0); Mean Platelet Volume 9.4; Monocytes # (A) 0.9 k/uL (0-1.0); Monocytes % (A) 8 %; Neutrophils # (A) 8.5 k/uL (1.3-7.7); Neutrophils % (A) 74 %; Platelet Count 235 k/uL (150-450); RBC 5.49 m/uL (4.30-5.90); RDW 13.4 % (11.5-15.5); WBC 11.5 k/uL (3.8-10.6)
[2023-03-18 09:47] LABS: Calcium 9.3 mg/dL (8.4-10.2); Magnesium 1.8 mg/dL (1.6-2.3); Potassium 3.9 mmol/L (3.5-5.1)
--- NOTE | 2023-03-18 09:57 | P.DS ---
Providers Date of admission: 03/12/23 11:27 Expected date of discharge: 03/18/23 Attending physician: João Jon MD Consults: 03/12/23 11:25 Consult Physician Routine Consulting Provider: [facility] Consult Reason/Comments: nstemi, vasospasm? Do you want consulting provider notified?: Yes Primary care physician: Pedro Luis Medina Hospital Course: Assessment: Coronary vasospasm Elevated troponin secondary to coronary vasospasm (Type I NSTEMI ruled out) Elevated left-sided filling pressure Acute kidney injury ADHD Leukocytosis, likely reactive Hospital course: 37-year-old male with history of TIA/CVA, PFO status post repair presenting with intermittent chest pain. In the ED, temperature 97.6, blood pressure 130/89, saturating under percent on room air, pulse 65, respiratory rate 18. CBC was unremarkable, potassium 4.6, magnesium 1.9, BUN 21, creatinine 1.25, troponin 0.267, increased to 0.715. Chest x-ray shows no acute process. EKG shows normal sinus rhythm. Patient admitted for non-ST elevation MN. Cardiology consulted. Currently on heparin drip. Echocardiogram showed LVEF 50-55%. Cardiac cath showed extreme case of coronary vasospasm involving the left coronary system worse by the mid LAD with spasm up to about 99.9%. Patient started on nitrates as well as calcium channel kaitlynn. Started on nitroglycerin drip. Patient was stepped down to the cardiac floor. Patient was eventually taken off the nitroglycerin drip and had his Imdur uptitrated along with nifedipine, his losartan and Vyvanse were discontinued. He was instructed to follow-up with cardiology. I spent 34 minutes coordinating this discharge on 03/18 Gen: awake, alert HEENT: normocephalic, atraumatic, good hearing acuity, moist mucous membranes Resp: good air exchange, breathing comfortably with no accessory muscle use CVS: good distal perfusion x 4, GI: soft, NTTP, ND : no SPT, no CVAT, bhandari catheter not present MSK: no pitting edema, no clubbing Neuro: non-focal, moving all extremities Psych: cooperative, euthymic mood Patient Condition at Discharge: Good Plan - Discharge Summary Discharge Rx Participant: No New Discharge Prescriptions: New Isosorbide Mononitrate ER [Imdur] 30 mg PO BID #60 tab NIFEdipine XL [Procardia XL] 30 mg PO Q12HR #60 tab Acetaminophen Tab [Tylenol] 650 mg PO Q6HR PRN tab PRN Reason: Fever And/ Or Pain Continue Aspirin EC [Ecotrin Low Dose] 81 mg PO DAILY Amitriptyline HCl [Elavil] 25 mg PO HS Omeprazole [PriLOSEC] 20 mg PO AC-BID Topiramate 100 mg PO DAILY [place]-3 Fatty Acids [[place]-3] 1 tab PO BID Discontinued Lisdexamfetamine Dimesylate [Vyvanse] 30 tab PO DAILY Losartan [Cozaar] 25 mg PO DAILY Discharge Medication List Aspirin EC [Ecotrin Low Dose] 81 mg PO DAILY 05/14/20 [History] [place]-3 Fatty Acids [[place]-3] 1 tab PO BID 02/26/23 [History] Omeprazole [PriLOSEC] 20 mg PO AC-BID 02/26/23 [History] Topiramate 100 mg PO DAILY 02/26/23 [History] Amitriptyline HCl [Elavil] 25 mg PO HS 03/12/23 [History] Acetaminophen Tab [Tylenol] 650 mg PO Q6HR PRN tab 03/18/23 [Rx] Isosorbide Mononitrate ER [Imdur] 30 mg PO BID #60 tab 03/18/23 [Rx] NIFEdipine XL [Procardia XL] 30 mg PO Q12HR #60 tab 03/18/23 [Rx] Follow up Appointment(s)/Referral(s): Ulices Burnette MD [STAFF PHYSICIAN] - 1 Week Pedro Luis Medina MD [Primary Care Provider] - 1-2 days Discharge Disposition: HOME SELF-CARE
[2023-03-18] MEDS ORDERED: ISOSORBIDE MONONITRATE ER 30 MG TAB.ER.24H PO STA (10:19)
--- NOTE | 2023-03-18 11:11 | P.PN ---
Subjective Progress Note Date: 03/18/23 HISTORY OF PRESENT ILLNESS: This is a 37-year-old male who underwent cardiac catheterization with Dr. Burnette revealing coronary vasospasm involving the left coronary system worse by the mid LAD with spasm up to 99.9%. Patient examined this morning at the bedside. Patient denies any further episodes of chest pain or pressure. He denies shortness of breath. Vital signs are stable. 03/18/2023 Patient examined this morning at the bedside. Patient denies any further episodes of chest pain or pressure. He denies shortness of breath. He has been up ambulating without difficulty. Vital signs are stable. PHYSICAL EXAM: VITAL SIGNS: Reviewed. GENERAL: Well-developed in no acute distress. NECK: Supple. No JVD or thyromegaly LUNGS: Respirations even and unlabored. Lungs essentially clear to auscultation bilaterally. HEART: Regular rate and rhythm. S1 and S2 heard. EXTREMITIES: Normal range of motion. No clubbing or cyanosis. Peripheral pulses intact. No lower extremity edema ASSESSMENT: Non-STEMI Severe coronary vasospasm with 99% LAD stenosis Hypertension History of PFO closure PLAN: Continue current cardiac medications Increase activity as tolerated Patient may be discharged home today from a cardiac standpoint with close outpatient follow-up Patient to follow-up post discharge with Dr. Burnette in one week Nurse practitioner note has been reviewed by physician. Signing provider agrees with the documented findings, assessment, and plan of care. Objective - Vital Signs Vital signs: Vital Signs Temp 98.1 F 03/18/23 08:27 Pulse 111 H 03/18/23 08:27 Resp 16 03/18/23 08:27 BP 105/75 03/18/23 08:27 Pulse Ox 97 03/18/23 08:27 FiO2 Intake & Output 03/17/23 03/18/23 03/18/23 18:59 06:59 18:59 Intake Total 900 180 Balance 900 180 Intake: Oral 900 180 Other: Voiding Method Toilet Toilet Toilet Urinal Urinal Urinal # Voids 2 2 1 - Labs CBC & Chem 7: 03/18/23 08:44 03/18/23 08:44 Labs: Abnormal Lab Results - Last 24 Hours (Table) 03/18/23 03/18/23 Range/Units 08:44 08:44 WBC 11.5 H (3.8-10.6) k/uL Neutrophils # 8.5 H (1.3-7.7) k/uL Creatinine 1.38 H (0.66-1.25) mg/dL Glucose 112 H (74-99) mg/dL
[2023-03-19] MEDS ORDERED: ISOSORBIDE MONONITRATE ER 60 MG TAB.ER.24H PO SCH (09:00)
== END 2023-03-18 11:37 | disposition home or self-care (01) | DRG 191 ==
LOC: EC 09:45 → 3SCARD 11:27 → 2SICU 03-13 14:11 → 3SCARD 03-16 22:51
PROVIDERS: ADMIT Student in an Organized Health Care Education/Training Program; ATTEND Student in an Organized Health Care Education/Training Program
PROC: 3E073GC Introduction of Other Therapeutic Substance into Coronary Artery, Percutaneous Approach (ICD-10-PCS; 2023-03-13)
PROC: 4A023N7 Measurement of Cardiac Sampling and Pressure, Left Heart, Percutaneous Approach (ICD-10-PCS; principal; 2023-03-13 10:30)
PROC: B2111ZZ Fluoroscopy of Multiple Coronary Arteries using Low Osmolar Contrast (ICD-10-PCS; 2023-03-13 10:30)
DX: I25.111 Atherosclerotic heart disease of native coronary artery with angina pectoris with documented spasm (principal); F41.9 Anxiety disorder, unspecified; F90.9 Attention-deficit hyperactivity disorder, unspecified type; G43.909 Migraine, unspecified, not intractable, without status migrainosus; I10 Essential (primary) hypertension; K21.9 Gastro-esophageal reflux disease without esophagitis; N17.9 Acute kidney failure, unspecified; Z91.013 Allergy to seafood; Z87.891 Personal history of nicotine dependence; Z79.82 Long term (current) use of aspirin; Z79.899 Other long term (current) drug therapy; Z86.73 Personal history of transient ischemic attack (TIA), and cerebral infarction without residual deficits; Z87.74 Personal history of (corrected) congenital malformations of heart and circulatory system; Z82.3 Family history of stroke; Z82.49 Family history of ischemic heart disease and other diseases of the circulatory system
CPT/HCPCS: 36415; 71046; 76937; 80048; 80053; 83690; 83735; 84484; 85025; 85610; 85730; 86140; 93005; 93306; 93454; 94760; 96365; 96366; 99291

== ENCOUNTER → 2023-07-10 | Outpatient (CLI) | payer OTHER ==
--- NOTE | 2023-07-10 08:22 | US ---
EXAMINATION TYPE: US liver DATE OF EXAM: 07/10/2023 COMPARISON: MRI of the liver dated 11/16/2020 CLINICAL INDICATION: Male, 37 years old with history of K76.89 OTHER SPECIFIED DISEASES OF LIVER; Lef t liver lesions TECHNIQUE: Multiple sonographic images of the right upper quadrant are obtained. FINDINGS: EXAM MEASUREMENTS: Liver Length: 16.6 cm Gallbladder Wall: 0.1 cm CBD: 0.4 cm Right Kidney: 10.4 x 4.6 x 4.6 cm ETHERNET NETWORK ARCHITECT NOTES:limited due to bowel gas Pancreas: Obscured by bowel gas Liver: Echogenic and coarse. Two left lobe liver lesions, 1= 3.0 x 3.3 x 3.0 cm 2= 1.1 x 1.3 x 0.9 cm Gallbladder: wnl Evidence for sonographic Crabtree's sign: neg CBD: wnl Right Kidney: No hydronephrosis or masses seen IMPRESSION: Previously described hepatic lesions are redemonstrated and are felt to reflect FNH or adenomas time of MRI. No new lesions are seen.
== END | disposition home or self-care (01) ==
LOC: RADUSWWP 07:41
PROVIDERS: ATTEND Family Medicine
DX: K76.89 Other specified diseases of liver (principal)
CPT/HCPCS: 76705

== ENCOUNTER 2023-10-26 18:20 | Emergency (ER) | payer OTHER ==
[2023-10-26 18:41] VITALS: RESP 18; TEMP 98.1
[2023-10-26 18:54] LABS: Basophils % (A) 0 %; Eosinophils # (A) 0.2 k/uL (0-0.7); Eosinophils % (A) 2 %; HCT 46.9 % (39.0-53.0); HGB 15.9 gm/dL (13.0-17.5); Lymphocytes # (A) 2.3 k/uL (1.0-4.8); Lymphocytes % (A) 23 %; MCHC 33.8 g/dL (31.0-37.0); MCV 85.7 fL (80.0-100.0); Mean Platelet Volume 9.2; Monocytes # (A) 0.4 k/uL (0-1.0); Monocytes % (A) 4 %; Neutrophils # (A) 7.2 k/uL (1.3-7.7); Neutrophils % (A) 71 %; Platelet Count 232 k/uL (150-450); RBC 5.47 m/uL (4.30-5.90); RDW 12.9 % (11.5-15.5); WBC 10.2 k/uL (3.8-10.6)
[2023-10-26 19:10] LABS: ALT 46 U/L (4-49); AST 28 U/L (17-59); African American GFR (CKD) 87 (>60 ml/min/1.73 sqM); Albumin 4.6 g/dL (3.5-5.0); Alkaline Phosphatase 107 U/L (38-126); Anion Gap 14 mmol/L; Blood Urea Nitrogen 18 mg/dL (9-20); Calcium 9.5 mg/dL (8.4-10.2); Carbon Dioxide 23 mmol/L (22-30); Chloride 103 mmol/L (98-107); Glucose 140 mg/dL (74-99); Magnesium 1.9 mg/dL (1.6-2.3); Non-African American GFR(CKD) 76 (>60 ml/min/1.73 sqM); Sodium 140 mmol/L (137-145); Total Bilirubin 0.8 mg/dL (0.2-1.3); Total Protein 7.6 g/dL (6.3-8.2)
[2023-10-26 19:49] LABS: Partial Thromboplastin Time 27.2 sec (22.0-30.0)
--- NOTE | 2023-10-26 20:41 | XR ---
EXAMINATION TYPE: XR chest 2V DATE OF EXAM: 10/26/2023 7:07 PM CLINICAL INDICATION:Male, 38 years old with history of Chest Pain; [facility] COMPARISON: 03/12/2023 TECHNIQUE: XR chest 2V. Frontal PA and lateral views of the chest. FINDINGS: Lines/Tubes: None. Heart/mediastinum: Heart size is normal. Mediastinal silhouette is otherwise unremarkable. Radioden sity again seen over the right heart likely related to ASD or PFO closure device. Pulmonary vascularity: Not increased, Lungs/Pleura: There is no evidence of pleural effusion, focal consolidation, or pneumothorax. Musculoskeletal: No acute osseous abnormality demonstrated in the limits of the exam. Stable mild as ymmetric elevation of right hemidiaphragm. Other findings: None. IMPRESSION: No acute cardiopulmonary abnormality.
--- NOTE | 2023-10-26 22:09 | ED ---
Chest Pain HPI - General Chief Complaint: Chest Pain Stated Complaint: Chest Pain,Sob Time Seen by Provider: 10/26/23 21:54 Source: patient Mode of arrival: wheelchair Limitations: no limitations - History of Present Illness Initial Comments: This patient is 38-year-old man with history of coronary artery vasospasm who presents with chest pain that he states is identical to previous episodes of vasospasm. The patient states the pain started this evening while he was cutting table for dinner. He tried taking his home nitroglycerin without much improvement. No accompanying symptoms. MD Complaint: chest pain Onset/Timin -: hour(s) Onset: other Pain Location: left chest Pain Radiation: none Severity: moderate Quality: other Consistency: constant Improves With: nothing Worsens With: nothing Treatments Prior to Arrival: aspirin, nitroglycerin - Related Data Home Medications Medication Instructions Recorded Confirmed Aspirin EC [Ecotrin Low Dose] 81 mg PO DAILY 05/14/20 03/12/23 [place]-3 Fatty Acids [[place]-3] 1 tab PO BID 02/26/23 03/12/23 Omeprazole [PriLOSEC] 20 mg PO AC-BID 02/26/23 03/12/23 Topiramate 100 mg PO DAILY 02/26/23 03/12/23 Amitriptyline HCl [Elavil] 25 mg PO HS 03/12/23 03/12/23 Previous Rx's Medication Instructions Recorded Acetaminophen Tab [Tylenol] 650 mg PO Q6HR PRN tab 03/18/23 Atorvastatin [Lipitor] 40 mg PO HS #30 tab 03/18/23 Clopidogrel [Plavix] 75 mg PO DAILY #30 tab 03/18/23 Isosorbide Mononitrate ER [Imdur] 60 mg PO DAILY #30 tab 03/18/23 NIFEdipine XL [Procardia XL] 30 mg PO Q12HR #60 tab 03/18/23 Nitroglycerin Sl Tabs [Nitrostat] 0.4 mg SUBLINGUAL Q5M PRN #15 tab 03/18/23 Allergies Allergy/AdvReac Type Severity Reaction Status Date / Time shellfish derived [Shellfish] Allergy Nausea & Verified 10/26/23 18:25 Vomiting Review of Systems ROS Statement: Those systems with pertinent positive or pertinent negative responses have been documented in the HPI. ROS Other: All systems not noted in ROS Statement are negative. Constitutional: Denies: fever, chills, weakness Respiratory: Denies: cough, dyspnea Cardiovascular: Reports: chest pain. Denies: palpitations, orthopnea, edema, syncope Gastrointestinal: Denies: abdominal pain, nausea, vomiting Genitourinary: Denies: dysuria, hematuria Musculoskeletal: Denies: back pain Skin: Denies: rash Neurological: Denies: headache, weakness, numbness EKG Findings - EKG Results: EKG: interpreted by ERMD, sinus rhythm (Rate 90 bpm), normal axis, normal QRS - Blocks, [place], Hypertrophy, ST Abn: Repolarization changes or abnormalities: nonspecific abnormality, ST segment, and/or T wave Past Medical History Past Medical History: Chest Pain / Angina, CVA/TIA Additional Past Medical History / Comment(s): rt inguinal hernia,states "small hole found in my heart on an echocardiogram" 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 see dr diane H & P History of Any Multi-Drug Resistant Organisms: None Reported Past Surgical History: Hernia Repair Additional Past Surgical History / Comment(s): ROEL, rt inguinal hernia repair, lt testes descended , as also had hernia repiar Testicular retreval (left) about 21 years ago procedure to "close hole in heart" Past Anesthesia/Blood Transfusion Reactions: No Reported Reaction Additional Past Anesthesia/Blood Transfusion Reaction / Comment(s): no hx blood transfusion Past Psychological History: Anxiety Smoking Status: Former smoker Past Alcohol Use History: Occasional Past Drug Use History: None Reported - Past Family History Mother Family Medical History: Hypertension Additional Family Medical History / Comment(s): grandfather had stroke DM Father Family Medical History: CVA/TIA Additional Family Medical History / Comment(s): grandfather had stroke General Exam Limitations: no limitations General appearance: alert, in no apparent distress Head exam: Present: atraumatic, normocephalic Eye exam: Present: normal appearance. Absent: scleral icterus, conjunctival injection ENT exam: Present: normal oropharynx Neck exam: Present: normal inspection Respiratory exam: Present: normal lung sounds bilaterally. Absent: respiratory distress, wheezes, rales, rhonchi, stridor, accessory muscle use Cardiovascular Exam: Present: regular rate, normal rhythm, normal heart sounds. Absent: systolic murmur, diastolic murmur, rubs, gallop GI/Abdominal exam: Present: soft. Absent: distended, tenderness, guarding, rebound, rigid, mass Extremities exam: Present: normal inspection, normal capillary refill. Absent: pedal edema, calf tenderness Back exam: Present: normal inspection. Absent: CVA tenderness (R), CVA tenderness (L) Neurological exam: Present: alert Skin exam: Present: warm, dry, intact, normal color. Absent: rash Course Vital Signs 10/26/23 10/26/23 10/26/23 18:23 23:28 23:50 Temperature 98.1 F Pulse Rate 98 80 84 Respiratory 18 18 18 Rate Blood Pressure 135/85 126/91 125/81 O2 Sat by Pulse 97 95 93 L Oximetry 10/27/23 00:54 Temperature Pulse Rate 72 Respiratory 18 Rate Blood Pressure 122/80 O2 Sat by Pulse 93 L Oximetry Chest Pain MDM - [facility] Patient had chest x-ray that I interpreted as negative for acute infiltrate, pneumothorax, congestive heart failure I went to reevaluate the patient and he stated that he was doing significantly better. I had the intention of admitting the patient but he stated that his pain is now improved and that it is better than what he usually deals with at home. Previous records are reviewed that the patient doesn't have severe coronary spasm intermittently. The patient has had 2 negative troponins here and improvement of symptoms and therefore stable for continuing as outpatient. He is aware of symptoms requiring return. He is aware of need for close follow- up. Was pt. sent in by a medical professional or institution (, PA, MASTER TAX ADVISOR, urgent care, hospital, or shelter...) When possible be specific @ -[No] Did you speak to anyone other than the patient for history (EMS, parent, family, police, friend...)? What history was obtained from this source @ -[Patient's did contribute to history Did you review nursing and triage notes (agree or disagree)? Why? @ -[I reviewed and agree with nursing and triage notes] Were old charts reviewed (outside hosp., previous admission, EMS record, old EKG, old radiological studies, urgent care reports/EKG's, shelter records)? Report findings @ -[Yes, old charts were reviewed] Differential Diagnosis (chest pain, altered mental status, abdominal pain women, abdominal pain men, vaginal bleeding, weakness, fever, dyspnea, syncope, headache, dizziness, GI bleed, back pain, seizure, CVA, palpatations, mental health, musculoskeletal)? @ -[Differential Chest Pain: Stable Angina, Unstable Angina, STEMI, NSTEMI Aortic Dissection, Pneumothorax, Musculoskeletal, Esophageal Spasm GERD, Cholecystitis, Pancreatitis, Zoster, this is not meant to be an all-inclusive list. EKG interpreted by me (3pts min.). @ -[I interpreted As above] X-rays interpreted by me (1pt min.). @ -[I interpreted as above CT interpreted by me (1pt min.). @ -[None done] U/S interpreted by me (1pt. min.). @ -[None done] What testing was considered but not performed or refused? (CT, X-rays, U/S, labs)? Why? @ -[None] What meds were considered but not given or refused? Why? @ -[None] Did you discuss the management of the patient with other professionals (professionals i.e. , PA, MASTER TAX ADVISOR, lab, RT, psych nurse, director of social work, body worker, teacher, helicopter officer, onsite case manager)? Give summary @ -[No] Was smoking cessation discussed for >3mins.? @ -[No] Was critical care preformed (if so, how long)? @ -[Yes, 30 minutes Were there social determinants of health that impacted care today? How? (Homelessness, low income, unemployed, alcoholism, drug addiction, transportation, low edu. Level, literacy, decrease access to med. care, senior living, rehab)? @ -[No] Was there de-escalation of care discussed even if they declined (Discuss DNR or withdrawal of care, Hospice)? DNR status @ -[No] What co-morbidities impacted this encounter? (DM, HTN, Smoking, COPD, CAD, Cancer, CVA, ARF, Chemo, Hep., AIDS, mental health diagnosis, sleep apnea, morbid obesity)? @ -[None] Was patient admitted / discharged? Hospital course, mention meds given and route, prescriptions, significant lab abnormalities, going to OR and other pertinent info. @ -[See above Undiagnosed new problem with uncertain prognosis? @ -[No] Drug Therapy requiring intensive monitoring for toxicity (Heparin, Nitro, Insulin, Cardizem)? @ -[IV nitroglycerin was administered Were any procedures done? @ -[No] Diagnosis/symptom? @ -[Chest pain Acute coronary artery spasm Acute, or Chronic, or Acute on Chronic? @ -[Acute Uncomplicated (without systemic symptoms) or Complicated (systemic symptoms)? @ -[Uncomplicated Side effects of treatment? @ -[No] Exacerbation, Progression, or Severe Exacerbation? @ -[No] Poses a threat to life or bodily function? How? (Chest pain, [place], ND, pneumonia, PE, COPD, DKA, ARF, appy, cholecystitis, CVA, Diverticulitis, Homicidal, Suicidal, threat to staff... and all critical care pts) @ -[There is some threat to life associated with coronary chest pain. I was going to have the patient admitted, After thorough discussion, patient is would like to go home with close follow-up and understands return parameters. Disposition Clinical Impression: Chest pain, Prinzmetal angina Disposition: HOME SELF-CARE Condition: Good Instructions (If sedation given, give patient instructions): Chest Pain (ED) Is patient prescribed a controlled substance at d/c from ED?: No Referrals: Pedro Luis Medina MD [Primary Care Provider] - 1-2 days
[2023-10-26] MEDS ORDERED: MORPHINE SULFATE 4 MG/ML SYRINGE IV STA (22:22)
[2023-10-26] MEDS ORDERED: NITROGLYCERIN-D5W PMX 50 MG in DEXTROSE/WATER 1 250ML.BAG IV ONE (22:23)
[2023-10-27 01:04] VITALS: BP 122/80; PULSE 72
== END 2023-10-27 02:01 | disposition home or self-care (01) ==
LOC: EC 18:20
DX: I20.1 Angina pectoris with documented spasm (principal); Z86.59 Personal history of other mental and behavioral disorders; Z91.013 Allergy to seafood; Z87.891 Personal history of nicotine dependence; Z79.82 Long term (current) use of aspirin
CPT/HCPCS: 36415; 93005; 80053; 83735; 84484; 85025; 85610; 85730; 71046; 99291; 96365; 96366 ×2; 96375; J2270; J2305

== ENCOUNTER 2024-02-03 20:36 | Observation (INO) | payer OTHER ==
[2024-02-03 21:04] LABS: Basophils # (A) 0.1 k/uL (0-0.2); Basophils % (A) 1 %; Eosinophils # (A) 0.2 k/uL (0-0.7); Eosinophils % (A) 3 %; HCT 46.6 % (39.0-53.0); HGB 15.1 gm/dL (13.0-17.5); Lymphocytes # (A) 2.2 k/uL (1.0-4.8); Lymphocytes % (A) 28 %; MCHC 32.4 g/dL (31.0-37.0); MCV 86.3 fL (80.0-100.0); Mean Platelet Volume 9.9; Monocytes # (A) 0.4 k/uL (0-1.0); Monocytes % (A) 6 %; Neutrophils # (A) 4.9 k/uL (1.3-7.7); Neutrophils % (A) 62 %; Platelet Count 179 k/uL (150-450); RDW 13.4 % (11.5-15.5); WBC 7.9 k/uL (3.8-10.6)
--- NOTE | 2024-02-03 21:14 | XR ---
EXAMINATION TYPE: XR chest 2V DATE OF EXAM: 02/03/2024 9:09 PM CLINICAL INDICATION:Male, 38 years old with history of Chest Pain; [facility] COMPARISON: Chest radiographs from TECHNIQUE: XR chest 2V Frontal and lateral views of the chest. FINDINGS: Lungs/Pleura: There is no evidence of pleural effusion, focal consolidation, or pneumothorax. Pulmonary vascularity: Unremarkable. Heart/mediastinum: Cardiomediastinal silhouette is unremarkable. Redemonstrated suspected PFO closur e device. Musculoskeletal: No acute osseous pathology. IMPRESSION: No acute cardiopulmonary disease/process.
[2024-02-03 21:16] LABS: INR 0.9 (<1.2); Partial Thromboplastin Time 23.6 sec (22.0-30.0); Prothrombin Time 10.3 sec (10.0-12.5)
[2024-02-03 21:21] LABS: ALT 66 U/L (4-49); AST 32 U/L (17-59); African American GFR (CKD) >90 (>60 ml/min/1.73 sqM); Alkaline Phosphatase 124 U/L (38-126); Anion Gap 8 mmol/L; Blood Urea Nitrogen 19 mg/dL (9-20); Calcium 9.7 mg/dL (8.4-10.2); Carbon Dioxide 23 mmol/L (22-30); Chloride 107 mmol/L (98-107); Glucose 224 mg/dL (74-99); Magnesium 1.7 mg/dL (1.6-2.3); Non-African American GFR(CKD) >90 (>60 ml/min/1.73 sqM); Sodium 138 mmol/L (137-145); Total Bilirubin 0.6 mg/dL (0.2-1.3); Total Protein 6.8 g/dL (6.3-8.2)
[2024-02-03] MEDS: ASPIRIN 81 MG PO STA (23:15)
[2024-02-03] MEDS: NITROGLYCERIN OINT 1 INCH/GM PACKET TOPICAL STA (23:16)
--- NOTE | 2024-02-04 00:04 | ED ---
Chest Pain HPI - General Chief Complaint: Chest Pain Stated Complaint: Chest Pain Time Seen by Provider: 02/03/24 22:30 Source: patient Mode of arrival: ambulatory Limitations: no limitations - History of Present Illness Initial Comments: 38-year-old male presenting with chief complaint of chest pain. 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 He follows with Dr. Diane. Chest pain started abruptly this evening. It is worse with exertion and is accompanied by shortness of breath. Patient took 3 nitros and the pain was not alleviated. He is having no radiation of the pain into his arms or neck. No abdominal pain, nausea, vomiting. No lower extremity swelling. No recent surgery or long travel. - Related Data Home Medications Medication Instructions Recorded Confirmed Aspirin EC [Ecotrin Low Dose] 81 mg PO DAILY 05/14/20 03/12/23 Ray[place]-3 Fatty Acids [Rayle-3] 1 tab PO BID 02/26/23 03/12/23 Omeprazole [PriLOSEC] 20 mg PO AC-BID 02/26/23 03/12/23 Topiramate 100 mg PO DAILY 02/26/23 03/12/23 Amitriptyline HCl [Elavil] 25 mg PO HS 03/12/23 03/12/23 Previous Rx's Medication Instructions Recorded Acetaminophen Tab [Tylenol] 650 mg PO Q6HR PRN tab 03/18/23 Atorvastatin [Lipitor] 40 mg PO HS #30 tab 03/18/23 Clopidogrel [Plavix] 75 mg PO DAILY #30 tab 03/18/23 Isosorbide Mononitrate ER [Imdur] 60 mg PO DAILY #30 tab 03/18/23 NIFEdipine XL [Procardia XL] 30 mg PO Q12HR #60 tab 03/18/23 Nitroglycerin Sl Tabs [Nitrostat] 0.4 mg SUBLINGUAL Q5M PRN #15 tab 03/18/23 Allergies Allergy/AdvReac Type Severity Reaction Status Date / Time shellfish derived [Shellfish] Allergy Nausea & Verified 02/03/24 20:39 Vomiting Review of Systems ROS Statement: Those systems with pertinent positive or pertinent negative responses have been documented in the HPI. ROS Other: All systems not noted in ROS Statement are negative. 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 see dr diane H & P History of Any Multi-Drug Resistant Organisms: None Reported Past Surgical History: Hernia Repair Additional Past Surgical History / Comment(s): ROEL, rt inguinal hernia repair, lt testes descended , as also had hernia repiar Testicular retreval (left) about 21 years ago procedure to "close hole in heart" Past Anesthesia/Blood Transfusion Reactions: No Reported Reaction Additional Past Anesthesia/Blood Transfusion Reaction / Comment(s): no hx blood transfusion Past Psychological History: Anxiety Smoking Status: Former smoker Past Alcohol Use History: Occasional Past Drug Use History: None Reported - Past Family History Mother Family Medical History: Hypertension Additional Family Medical History / Comment(s): grandfather had stroke DM Father Family Medical History: CVA/TIA Additional Family Medical History / Comment(s): grandfather had stroke General Exam Limitations: no limitations General appearance: alert, in no apparent distress Head exam: Present: atraumatic, normocephalic Eye exam: Present: normal appearance, EOMI Neck exam: Present: normal inspection. Absent: meningismus Respiratory exam: Present: normal lung sounds bilaterally. Absent: respiratory distress, wheezes, rales, rhonchi, stridor Cardiovascular Exam: Present: regular rate, normal rhythm, normal heart sounds. Absent: systolic murmur, diastolic murmur, rubs, gallop, clicks Extremities exam: Absent: pedal edema Neurological exam: Present: alert, oriented X3 Psychiatric exam: Present: normal affect, normal mood Skin exam: Present: warm, dry Course Vital Signs 02/03/24 02/03/24 20:37 23:28 Temperature 98.4 F Pulse Rate 72 77 Respiratory 18 18 Rate Blood Pressure 144/93 143/94 O2 Sat by Pulse 95 97 Oximetry Chest Pain MDM - MDM Was pt. sent in by a medical professional or institution (, PA, ATTRACTION WORKER, urgent care, hospital, or alf...) When possible be specific @ -No Did you speak to anyone other than the patient for history (EMS, parent, family, police, friend...)? What history was obtained from this source @ -No Did you review nursing and triage notes (agree or disagree)? Why? @ -I reviewed and agree with nursing and triage notes Were old charts reviewed (outside hosp., previous admission, EMS record, old EKG, old radiological studies, urgent care reports/EKG's, alf records)? Report findings @ -Reviewed previous visits and cardiac catheterization Differential Diagnosis (chest pain, altered mental status, abdominal pain women, abdominal pain men, vaginal bleeding, weakness, fever, dyspnea, syncope, headache, dizziness, GI bleed, back pain, seizure, CVA, palpatations, mental health, musculoskeletal)? @ -MDM Differential Chest Pain: Stable Angina, Unstable Angina, STEMI, NSTEMI Aortic Dissection, Pneumothorax, Musculoskeletal, Esophageal Spasm GERD, Cholecystitis, Pancreatitis, Zoster This is not meant to be an all-inclusive list. EKG interpreted by me (3pts min.). @ -EKG shows sinus rhythm ventricular rate 62. WA interval 178. QRS 104. QT 362. QTc 367. X-rays interpreted by me (1pt min.). @ -Chest x-ray shows no acute cardiopulmonary disease/process CT interpreted by me (1pt min.). @ -None done U/S interpreted by me (1pt. min.). @ -None done What testing was considered but not performed or refused? (CT, X-rays, U/S, labs)? Why? @ -None What meds were considered but not given or refused? Why? @ -None Did you discuss the management of the patient with other professionals (professionals i.e. , PA, ATTRACTION WORKER, lab, RT, psych nurse, social work professor, child care assistant, teacher, loan officer, rn case manager)? Give summary @ -I spoke with Dr. Wesley who accepted admission Was smoking cessation discussed for >3mins.? @ -No Was critical care preformed (if so, how long)? @ -No Were there social determinants of health that impacted care today? How? (Homelessness, low income, unemployed, alcoholism, drug addiction, transportation, low edu. Level, literacy, decrease access to med. care, alf, rehab)? @ -No Was there de-escalation of care discussed even if they declined (Discuss DNR or withdrawal of care, Hospice)? DNR status @ -No What co-morbidities impacted this encounter? (DM, HTN, Smoking, COPD, CAD, Cancer, CVA, ARF, Chemo, Hep., AIDS, mental health diagnosis, sleep apnea, morbid obesity)? @ -History of NSTEMI Was patient admitted / discharged? Hospital course, mention meds given and route, prescriptions, significant lab abnormalities, going to OR and other pertinent info. @ -38-year-old male presenting with chief complaint of chest pain. Workup is initiated by triage. Negative troponin. Patient is later placed in a room and evaluated by myself. He is still experiencing pain, he is given an inch of Nitropaste. D-dimer is negative. EKG shows no acute findings. Given the patient's history he will be admitted for observation and serial troponins. Patient is agreeable with this plan. I discussed this case with my attending Dr. Nagel Undiagnosed new problem with uncertain prognosis? @ -No Drug Therapy requiring intensive monitoring for toxicity (Heparin, Nitro, Insulin, Cardizem)? @ -No Were any procedures done? @ -No Diagnosis/symptom? @ -Chest pain Acute, or Chronic, or Acute on Chronic? @ -Acute Uncomplicated (without systemic symptoms) or Complicated (systemic symptoms)? @ -Complicated Side effects of treatment? @ -No Exacerbation, Progression, or Severe Exacerbation? @ -No Poses a threat to life or bodily function? How? (Chest pain, [place], [place], pneumonia, PE, COPD, DKA, ARF, appy, cholecystitis, CVA, Diverticulitis, Homicidal, Suicidal, threat to staff... and all critical care pts) @ -Yes Disposition Clinical Impression: Chest pain Disposition: ADMITTED IP TO THIS HOSP Condition: Fair Time of Disposition: 00:04
[2024-02-04] MEDS ORDERED: NALOXONE 0.4 MG/ML 1 ML VIAL IV PRN (00:39)
[2024-02-04] MEDS ORDERED: ACETAMINOPHEN TAB 325 MG TAB PO PRN (01:41)
[2024-02-04] MEDS: MORPHINE SULFATE 4 MG/ML SYRINGE IVP STA (01:46)
--- NOTE | 2024-02-04 01:51 | P.HPIM ---
History of Present Illness H&P Date: 02/04/24 Chief Complaint: Chest pain 38-year-old male with known coronary artery vasospasm coming in with sudden onset chest pain while trying to climb stairs he said he felt coming for the past couple days states hit him felt severe pain 6-7 out of 10 over the left side of the chest radiating to his jaw while he was trying to climb some stairs he denies any associated nausea vomiting difficulty breathing or profuse sweating Patient denies any cardiac stents however he does confirm diagnosis of coronary artery vasospasms for which she takes nitroglycerin. Normally it helps however today he got no relief and decided to come into the hospital for evaluation typically is triggered by cold water but he tries to avoid those. Otherwise denies any recent illness or viral illness denies any fevers chills nausea vomiting runny nose sore throat muscle aches or rashes. Patient denies tobacco smoking illicit drugs or heavy alcohol Patient had a nitro patch placed however he does not feel like it is it is helping with the pain he reports that normally nitro drip helps last episode was back in October review of systems Pertinent positives as noted in HPI. All other systems were reviewed and are negative on exam Constitutional: No acute distress, conversant, pleasant Eyes: Anicteric sclerae, moist conjunctiva, Pupils equal round reactive to light ENMT: NC/AT Oropharynx clear, no erythema, or exudates Neck: Supple, no masses, or JVD No carotid bruits No thyromegaly Lungs: Clear to auscultation Clear to percussion Normal respiratory effort, no accessory muscle use Cardiovascular: Heart regular in rate and rhythm, No murmurs, gallops, or rubs No peripheral edema Abdominal: Soft Nontender, no guarding, rebound or rigidity Abdomen moving with respiration Normoactive bowel sounds Extremities: No digital cyanosis No clubbing Pedal pulses intact and symmetrical Radial pulses intact and symmetrical No calf tenderness Psychiatric: Alert and oriented to person, place and time Appropriate affect fair judgement Neuro Muscles Strength 5/5 in all 4 extremities Sensation to light touch grossly present throughout Cranial nerves II-XII grossly intact Past Medical History Past Medical History: Chest Pain / Angina, CVA/TIA Additional Past Medical History / Comment(s): rt inguinal hernia,states "small hole found in my heart on an echocardiogram" 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 History of Any Multi-Drug Resistant Organisms: None Reported Past Surgical History: Hernia Repair Additional Past Surgical History / Comment(s): ROEL, rt inguinal hernia repair, lt testes descended , as also had hernia repiar Testicular retreval (left) about 21 years ago procedure to "close hole in heart" Past Anesthesia/Blood Transfusion Reactions: No Reported Reaction Additional Past Anesthesia/Blood Transfusion Reaction / Comment(s): no hx blood transfusion Past Psychological History: Anxiety Smoking Status: Former smoker Past Alcohol Use History: Occasional Past Drug Use History: None Reported - Past Family History Mother Family Medical History: Hypertension Additional Family Medical History / Comment(s): grandfather had stroke DM Father Family Medical History: CVA/TIA Additional Family Medical History / Comment(s): grandfather had stroke Medications and Allergies Home Medications Medication Instructions Recorded Confirmed Type Aspirin EC [Ecotrin Low Dose] 81 mg PO DAILY 05/14/20 03/12/23 History [place]-3 Fatty Acids [[place]-3] 1 tab PO BID 02/26/23 03/12/23 History Omeprazole [PriLOSEC] 20 mg PO AC-BID 02/26/23 03/12/23 History Topiramate 100 mg PO DAILY 02/26/23 03/12/23 History Amitriptyline HCl [Elavil] 25 mg PO HS 03/12/23 03/12/23 History Acetaminophen Tab [Tylenol] 650 mg PO Q6HR PRN tab 03/18/23 Rx Atorvastatin [Lipitor] 40 mg PO HS #30 tab 03/18/23 Rx Clopidogrel [Plavix] 75 mg PO DAILY #30 tab 03/18/23 Rx Isosorbide Mononitrate ER [Imdur] 60 mg PO DAILY #30 tab 03/18/23 Rx NIFEdipine XL [Procardia XL] 30 mg PO Q12HR #60 tab 03/18/23 Rx Nitroglycerin Sl Tabs [Nitrostat] 0.4 mg SUBLINGUAL Q5M PRN #15 tab 03/18/23 Rx Allergies Allergy/AdvReac Type Severity Reaction Status Date / Time shellfish derived [Shellfish] Allergy Nausea & Verified 02/03/24 20:39 Vomiting Physical Exam Vitals: Vital Signs Temp Pulse Resp BP Pulse Ox 02/03/24 23:28 77 18 143/94 97 04/17/24 20:37 98.4 F 72 18 144/93 95 Intake and Output 02/03/24 02/03/24 02/04/24 14:59 22:59 06:59 Other: Weight 117.934 kg Results CBC & Chem 7: 02/03/24 20:55 02/03/24 20:55 Labs: Abnormal Lab Results - Last 24 Hours (Table) 02/03/24 Range/Units 20:55 Glucose 224 H (74-99) mg/dL ALT 66 H (4-49) U/L Assessment and Plan Assessment: 38-year-old male known to have coronary artery vasospasms coming in with chest pain discussed the case with ED doctor and accepted the admission for chest pain for cardiology evaluation with anticipated length of stay less than 2 midnights Coronary artery vasospasm Resume home medication aspirin, diltiazem Hold nitroglycerin paste and pills Initiate nitroglycerin drip for chest pain control Continue with statin Cardiac monitoring Cardiology consult Monitor vital signs Blood work overall unremarkable sodium 158 potassium 4 BUN 19 creatinine 1 Hemoglobin 15 white count 7.9 D-dimer negative
[2024-02-04] MEDS: NITROGLYCERIN-D5W PMX 50 MG in DEXTROSE/WATER 1 250ML.BAG IV SCH (02:09)
[2024-02-04] MEDS: PANTOPRAZOLE 40 MG TABLET PO SCH (07:52)
[2024-02-04] MEDS: ENOXAPARIN 40 MG/0.4 ML SYRINGE SQ SCH (08:49)
[2024-02-04] MEDS: ASPIRIN 81 MG PO SCH (08:49)
--- NOTE | 2024-02-04 09:59 | P.CRDCN ---
History of Present Illness Consult date: 02/04/24 History of present illness: History of present illness: This is a 38-year-old male patient of Dr. Burnette with past medical history of PFO status post percutaneous closure, hypertension, dyslipidemia, coronary vasospasms, prediabetes. We have been asked to evaluate the patient for chest pain. Patient presented to the emergency center due to chest pain worse with exertion along with shortness of breath. Patient took 3 nitroglycerin and pain was not resolved. He has no radiation of the pain. No nausea or vomiting. No lower extremity edema. Patient is seen today in the emergency center waiting for bed on the observation unit. Patient has been started on nitroglycerin drip which apparently has helped his chest pain. EKG sinus rhythm with no acute ST-T wave changes. Chest x-ray: No acute process CBC, INR, D-dimer, electrolytes and renal function normal. Glucose 224. Troponin negative x 3. ALT 66. Home cardiac medications: Aspirin 81 mg daily, atorvastatin 40 mg daily, Cardizem CD 240 mg daily, Imdur 120 mg daily, magnesium 250 mg at bedtime, Nitrostat as needed, omega-3 1 twice daily. Echocardiogram performed 03/13/2023 reveals preserved LV size and systolic function. Cardiac catheterization performed by Dr. Burnette on 03/12/2023 revealed extreme case of coronary vasospasm involving the left coronary system worse by the mid LAD with spasm up to about 99.9%. Review Of Systems: At the time of my exam: CONSTITUTIONAL: Denies fever or chills. HEENT: Denies blurred vision, vision changes, or eye pain. Denies hemoptysis CARDIOVASCULAR: Denies chest pain. Denies orthopnea. Denies PND. Denies palpitations RESPIRATORY: Denies shortness of breath. GASTROINTESTINAL: Denies abdominal pain. Denies nausea or vomiting. HEMATOLOGIC: Denies bleeding disorders. GENITOURINARY: Denies any blood in urine. SKIN: Denies pruitis. Denies rash. Physical examination: Gen: This is a [ ] VS: reviewed HEENT: Head is atraumatic, normocephalic. Pupils equal, round. Sclerae is anicteric. NECK: Supple. No JVD. LUNGS: Clear to auscultation. No wheezes or rhonchi. No intercostal retractions. HEART: Regular rate and rhythm. No murmur. ABDOMEN: Soft No tenderness. EXTREMITIES: No pedal edema. No calf tenderness. NEUROLOGICAL: Patient is awake, alert and oriented x3. Assessment: Atypical chest pain, acute coronary syndrome ruled out History of coronary vasospasms History of PFO status post percutaneous closure Hypertension Dyslipidemia Prediabetes Plan: Resume patient's home cardiac medications except hold Imdur Discontinue nitroglycerin drip Start patient on Nitropaste 1 inch 3 times daily Obtain 2-D echocardiogram and Doppler study to assess cardiac structure and function Further recommendations to follow based upon clinical course. Probable stress echo tomorrow. N.p.o. after midnight Thank you kindly for this consultation. Nurse practitioner note has been reviewed, I agree with documented findings and plan of care. Patient was seen and examined. 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 History of Any Multi-Drug Resistant Organisms: None Reported Past Surgical History: Hernia Repair Additional Past Surgical History / Comment(s): ROEL, rt inguinal hernia repair, lt testes descended , as infant also had hernia repiar Testicular retreval (left) about 21 years ago procedure to "close hole in heart" Past Anesthesia/Blood Transfusion Reactions: No Reported Reaction Additional Past Anesthesia/Blood Transfusion Reaction / Comment(s): no hx blood transfusion Past Psychological History: Anxiety Smoking Status: Former smoker Past Alcohol Use History: Occasional Past Drug Use History: None Reported - Past Family History Mother Family Medical History: Hypertension Additional Family Medical History / Comment(s): grandfather had stroke DM Father Family Medical History: CVA/TIA Additional Family Medical History / Comment(s): grandfather had stroke Medications and Allergies Home Medications Medication Instructions Recorded Confirmed Type Aspirin EC [Ecotrin Low Dose] 81 mg PO DAILY 05/14/20 02/04/24 History [place]-3 Fatty Acids [[place]-3] 1 cap PO BID 02/26/23 02/04/24 History Atorvastatin [Lipitor] 40 mg PO HS #30 tab 03/18/23 02/04/24 Rx Nitroglycerin Sl Tabs [Nitrostat] 0.4 mg SUBLINGUAL Q5M PRN #15 tab 03/18/23 02/04/24 Rx Arginine [l-Arginine] 500 mg PO DAILY 02/04/24 02/04/24 History Cholecalciferol (Vitamin D3) 1,250 mcg PO WEEKLY 02/04/24 02/04/24 History [Decara (50,000 Iu)] Famotidine [Pepcid] 20 mg PO BID 02/04/24 02/04/24 History Isosorbide Mononitrate [Imdur] 120 mg PO DAILY 02/04/24 02/04/24 History Magnesium 250 mg PO HS 02/04/24 02/04/24 History busPIRone HCl [Buspar] 5 mg PO BID 02/04/24 02/04/24 History dilTIAZem HCL [dilTIAZem HCL 24Hr 240 mg PO DAILY 02/04/24 02/04/24 History ER (CD)] Allergies Allergy/AdvReac Type Severity Reaction Status Date / Time shellfish derived [Shellfish] Allergy Nausea & Verified 02/04/24 07:18 Vomiting Physical Exam Vitals: Vital Signs Temp Pulse Resp BP Pulse Ox 02/04/24 07:51 52 L 116/69 94 L 02/04/24 06:39 52 L 16 115/75 95 02/04/24 05:32 56 L 18 120/65 91 L 02/04/24 03:15 80 134/67 95 02/04/24 03:00 67 132/70 94 L 02/04/24 02:49 65 120/81 94 L 02/04/24 02:30 66 128/80 95 02/04/24 02:19 67 136/82 95 02/04/24 01:58 65 18 134/86 95 02/03/24 23:28 77 18 143/94 97 02/03/24 20:37 98.4 F 72 18 144/93 95 Intake and Output 02/03/24 02/04/24 02/04/24 22:59 06:59 14:59 Intake Total 2.00 Balance 2.00 Intake: Intake, IV Titration 2.00 Amount Nitroglycerin-D5w Pmx 50 2.00 mg In Dextrose/Water 1 250ml.bag @ 5 MCG/MIN 1.5 mls/hr IV .Q24H [facility] Rx#: [id number] Other: Weight 117.934 kg Results 02/03/24 20:55 02/03/24 20:55 Cardiac Enzymes 02/03/24 02/03/24 02/04/24 Range/Units 20:55 20:55 03:31 AST 32 (17-59) U/L Troponin I <0.012 <0.012 (0.000-0.034) ng/mL Coagulation 02/03/24 Range/Units 20:55 PT 10.3 (10.0-12.5) sec APTT 23.6 (22.0-30.0) sec CBC 02/03/24 Range/Units 20:55 WBC 7.9 (3.8-10.6) k/uL RBC 5.40 (4.30-5.90) m/uL Hgb 15.1 (13.0-17.5) gm/dL Hct 46.6 (39.0-53.0) % Plt Count 179 (150-450) k/uL Comprehensive Metabolic Panel 02/03/24 Range/Units 20:55 Sodium 138 (137-145) mmol/L Potassium 4.0 (3.5-5.1) mmol/L Chloride 107 (98-107) mmol/L Carbon Dioxide 23 (22-30) mmol/L BUN 19 (9-20) mg/dL Creatinine 1.02 (0.66-1.25) mg/dL Glucose 224 H (74-99) mg/dL Calcium 9.7 (8.4-10.2) mg/dL AST 32 (17-59) U/L ALT 66 H (4-49) U/L Alkaline Phosphatase 124 (38-126) U/L Total Protein 6.8 (6.3-8.2) g/dL Albumin 4.0 (3.5-5.0) g/dL Current Medications Generic Name Dose Route Start Last Admin Trade Name Freq PRN Reason Stop Dose Admin Acetaminophen 650 mg 02/04/24 01:41 Acetaminophen Tab 325 Mg Tab PO Q6HR PRN Fever and/ or Pain Aspirin 81 mg 02/04/24 09:00 Aspirin 81 Mg PO DAILY [facility] Atorvastatin Calcium 40 mg 02/04/24 21:00 Atorvastatin 40 Mg Tab PO HS [facility] Enoxaparin Sodium 40 mg 02/04/24 09:00 Enoxaparin 40 Mg/0.4 Ml Syringe SQ DAILY [facility] Nitroglycerin/Dextrose 50 mg/ 250 mls @ 1.5 mls/hr 02/04/24 01:45 02/04/24 03:08 IV Solution IV 15 mcg/min .Q24H ANA 4.5 mls/hr Titration Protocol 5 MCG/MIN Naloxone HCl 0.2 mg 02/04/24 00:39 Naloxone 0.4 Mg/Ml 1 Ml Vial IV Q2M PRN Opioid Reversal Pantoprazole Sodium 40 mg 02/04/24 07:30 02/04/24 07:52 Pantoprazole 40 Mg Tablet PO 40 mg [id number] [facility] Administration Intake and Output 02/03/24 02/04/24 02/04/24 22:59 06:59 14:59 Intake Total 2.00 Balance 2.00 Intake: Intake, IV Titration 2.00 Amount Nitroglycerin-D5w Pmx 50 2.00 mg In Dextrose/Water 1 250ml.bag @ 5 MCG/MIN 1.5 mls/hr IV .Q24H [facility] Rx#: [id number] Other: Weight 117.934 kg 02/03/24 20:55 02/03/24 20:55
[2024-02-04] MEDS: NITROGLYCERIN OINT 1 INCH/GM PACKET TOPICAL SCH (10:30)
[2024-02-04] MEDS: DILTIAZEM CD 240 MG CAP.ER.24H PO SCH (10:30)
--- NOTE | 2024-02-04 17:25 | CA ---
Transthoracic Echo Report Name: Campbell Lemus Age: 38 Gender: M : 1985 Exam Date: 02/04/2024 12:58 Exam Location: [facility] Ht (in): 71 Wt (lb): 260 Ordering Physician: Lana Mckee Attending/Referring Phys: [id number], Rylee Glass Tube Bender Tabitha Gallardo, NANDO Procedure CPT: Indications: LVF Cardiac Hx: Technical Quality: Contrast 1: Total Dose (mL): Contrast 2: Total Dose (mL): MEASUREMENTS (Male / Female) Normal Values 2D ECHO LV Diastolic Diameter PLAX 5.1 cm 4.2 - 5.9 / 3.9 - 5.3 cm LV Systolic Diameter PLAX 3.0 cm IVS Diastolic Thickness 1.1 cm 0.6 - 1.0 / 0.6 - 0.9 cm LVPW Diastolic Thickness 1.1 cm 0.6 - 1.0 / 0.6 - 0.9 cm LV Relative Wall Thickness 0.4 RV Internal Dim ED PLAX 2.1 cm LA Systolic Diameter LX 3.5 cm 3.0 - 4.0 / 2.7 - 3.8 cm LV Diastolic Volume MOD BP 179.6 cm??? 67 - 155 / 56 - 104 cm??? LV Systolic Volume MOD BP 96.2 cm??? 22 - 58 / 19 - 49 cm??? LV Ejection Fraction MOD BP 46.4 % >= 55 % LV Cardiac Index MOD BP 2797.7 cm???/min???m??? LV Diastolic Volume MOD 4C 183.3 cm??? LV Systolic Volume MOD 4C 96.9 cm??? LV Ejection Fraction MOD 4C 47.2 % LV Cardiac Index MOD 4C 2900.8 cm???/min???m??? LV Diastolic Length 4C 9.2 cm LV Systolic Length 4C 8.1 cm LV Diastolic Volume MOD 2C 159.2 cm??? LV Systolic Volume MOD 2C 91.1 cm??? LV Ejection Fraction MOD 2C 42.8 % LV Cardiac Index MOD 2C 2284.4 cm???/min???m??? LV Diastolic Length 2C 8.4 cm LV Systolic Length 2C 7.6 cm M-MODE Aortic Root Diameter MM 3.3 cm LA Systolic Diameter MM 3.8 cm LA Ao Ratio MM 1.2 DOPPLER LVOT Peak Velocity 106.3 cm/s LVOT Peak Gradient 4.5 mmHg LVOT Velocity Time Integral 18.0 cm Mitral E Point Velocity 102.0 cm/s Mitral A Point Velocity 91.7 cm/s Mitral E to A Ratio 1.1 MV Deceleration Time 325.0 ms MV E' Velocity 7.3 cm/s Mitral E to MV E' Ratio 14.1 PV Peak Velocity 128.9 cm/s PV Peak Gradient 6.6 mmHg FINDINGS Left Ventricle Left ventricular ejection fraction is estimated at 40-%. [place] hypokinetic. Hypokinetic septum. Moderately increased left ventricular diastolic volume. Mildly decreased left ventricular ejection fraction. Right Ventricle Normal right ventricular size and function. Right ventricular systolic pressure within normal limits. Right Atrium Normal right atrial size. Left Atrium Normal left atrial size. Mitral Valve Structurally normal mitral valve. Trace to mild mitral regurgitation. No mitral stenosis. Aortic Valve Trileaflet aortic valve. No aortic valve stenosis or regurgitation. Tricuspid Valve Structurally normal tricuspid valve. Trace tricuspid regurgitation. Pulmonic Valve Structurally normal pulmonic valve. Trace pulmonic regurgitation. Pericardium Normal pericardium. Aorta Normal size aortic root and proximal ascending aorta. CONCLUSIONS Moderate LV systolic dysfunction Apical hypokinesis Previewed by: Dr. Urbano Asencio MD (Electronically Signed) Final Date: 04 February 2024 17:25
[2024-02-04] MEDS: ATORVASTATIN 40 MG TAB PO SCH (20:59)
--- NOTE | 2024-02-05 10:15 | P.PN ---
Subjective Progress Note Date: 02/05/24 History of present illness: This is a 38-year-old male patient of Dr. Burnette with past medical history of PFO status post percutaneous closure, hypertension, dyslipidemia, coronary vasospasms, prediabetes. We have been asked to evaluate the patient for chest pain. Patient presented to the emergency center due to chest pain worse with exertion along with shortness of breath. Patient took 3 nitroglycerin and pain was not resolved. He has no radiation of the pain. No nausea or vomiting. No lower extremity edema. Patient is seen today in the emergency center waiting for bed on the observation unit. Patient has been started on nitroglycerin drip which apparently has helped his chest pain. EKG sinus rhythm with no acute ST-T wave changes. Chest x-ray: No acute process CBC, INR, D-dimer, electrolytes and renal function normal. Glucose 224. Troponin negative x 3. ALT 66. Home cardiac medications: Aspirin 81 mg daily, atorvastatin 40 mg daily, Cardizem CD 240 mg daily, Imdur 120 mg daily, magnesium 250 mg at bedtime, Nitrostat as needed, omega-3 1 twice daily. Echocardiogram performed 03/13/2023 reveals preserved LV size and systolic function. Cardiac catheterization performed by Dr. Burnette on 03/12/2023 revealed extreme case of coronary vasospasm involving the left coronary system worse by the mid LAD with spasm up to about 99.9%. 02/04 Patient is seen today on the observation unit. He states he has walked to the bathroom and back only. No chest pain at this time. No shortness of breath. He is currently on nitro paste which will be transition to home Imdur dose. Otherwise patient is on his home medications. Blood pressure 129/80, heart rate 75, pulse ox 97% on room air. Echocardiogram reveals moderate LV systolic dysfunction 40%, apical hypokinesis. Physical examination: Gen: This is a obese 38-year-old male in no acute distress. VS: reviewed HEENT: Head is atraumatic, normocephalic. Pupils equal, round. Sclerae is anicteric. NECK: Supple. No JVD. LUNGS: Clear to auscultation. No wheezes or rhonchi. No intercostal retractions. HEART: Regular rate and rhythm. No murmur. ABDOMEN: Soft No tenderness. EXTREMITIES: No pedal edema. No calf tenderness. NEUROLOGICAL: Patient is awake, alert and oriented x3. Assessment: Atypical chest pain, acute coronary syndrome ruled out History of coronary vasospasms History of PFO status post percutaneous closure Hypertension Dyslipidemia Prediabetes Plan: Continue patient's home cardiac medications except hold Imdur Discontinue Nitropaste and resume Imdur Patient to ambulate in the hallway and assess for symptoms No further cardiac workup at this time At the time of discharge, patient to follow-up with Dr. Burnette in 1 to 2 weeks. Nurse practitioner note has been reviewed, I agree with documented findings and plan of care. Patient was seen and examined. Objective - Vital Signs Vital signs: Vital Signs Temp 97.8 F 02/05/24 02:00 Pulse 80 02/05/24 02:00 Resp 17 02/05/24 02:00 BP 144/79 02/05/24 02:00 Pulse Ox 94 L 02/05/24 02:00 FiO2 Intake & Output 02/04/24 02/05/24 02/05/24 18:59 06:59 18:59 Intake Total 151.75 Balance 151.75 Weight 117.934 kg Intake: Intake, IV Titration 33.75 Amount Nitroglycerin-D5w Pmx 50 33.75 mg In Dextrose/Water 1 250ml.bag @ 5 MCG/MIN 1.5 mls/hr IV .Q24H ANA Rx#: [id number] Oral 118 Other: Voiding Method Toilet # Voids 3 - Labs CBC & Chem 7: 02/03/24 20:55 02/03/24 20:55
--- NOTE | 2024-02-05 11:32 | P.PN ---
Subjective Progress Note Date: 02/05/24 38 year old M with PMH of coronary artery vasospasm presents to the ED for chest pain. Cardiac cath done on 03/12/23 showed vasospasm of the mid LAD with spasm up to about 99.9%. In the ED he underwent extensive evaluation. BP 144/93, HR 72, RR 18, T 98.4F, 95% on RA. CBC, Coag panel, CMP was done significant for glucose 224, ALT 66. D-Dimer 0.24. Mag 1.7. Troponin < 0.012 x 3 with EKG showing sinus rhythm with no ST wave changes. Patient was started on a nitroglycerine drip and admitted for Cardiology evaluation. Cardiology consulted, Echo performed showed EF 40% with hypokinetic apex and septum. Nitroglycerine drip was discontinued, started on nitro paste, re-started on Cardizem with plans of stress test in the AM. 02/04 Patient was seen and examined. Patient reports resolution of his chest rosa maria n. Cardiology has cancelled the stress test, recommended the patient restart Imdur and Cardizem and ambulate the hallway, no further cardiac workup. 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 General: non toxic, no distress, appears at stated age Derm: warm, dry Head: atraumatic, normocephalic, symmetric Eyes: EOMI, no lid lag, anicteric sclera Mouth: no lip lesion, mucus membranes moist Cardiovascular: S1S2 reg, no murmur Lungs: CTA bilateral, no rhonchi, no rales , no accessory muscle use Ext: no gross muscle atrophy, no edema, no contractures Neuro: no focal neuro deficits Psych: Alert, oriented, appropriate affect Based on my assessment of this patient, this patient meets a high complexity level of care. Patient has an acute diagnosis of chest pain that poses a threat to life or bodily function. Chest pain with history of coronary vasospasm: ACS ruled out. Echocardiogram as above. Continue Cardizem 240 mg PO QD and Imdur 120 mg PO QD. Telemetry monitoring. Monitor overnight per Cardiology. Cardiology on board. History of PFO status post closure Hypertension: Imdur and Cardizem as above. Dyslipidemia: Lipitor 40 mg PO QHS. Prediabetes: A1c 6.1. CODE STATUS: FULL CODE. DVT Prophylaxis: Lovenox GI Prophylaxis: Protonix Designated medical POA if patient is not able to make medical decisions for themselves: I have reviewed the following contamination consultant notes: Cardiology I have reviewed the results of the following tests: Troponins. Echo. I have ordered the following tests: I have discussed the care of this patient with the following independent historian: RN I have independently interpreted the following test below: I have discussed the management of this patient with the following physician: Lana ORTEZ Objective - Vital Signs Vital signs: Vital Signs Temp 98.0 F 02/05/24 07:00 Pulse 75 02/05/24 07:00 Resp 16 02/05/24 08:30 BP 129/80 02/05/24 07:00 Pulse Ox 97 02/05/24 07:00 FiO2 Intake & Output 02/04/24 02/05/24 02/05/24 18:59 06:59 18:59 Intake Total 151.75 Balance 151.75 Weight 117.934 kg Intake: Intake, IV Titration 33.75 Amount Nitroglycerin-D5w Pmx 50 33.75 mg In Dextrose/Water 1 250ml.bag @ 5 MCG/MIN 1.5 mls/hr IV .Q24H ANA Rx#: [id number] Oral 118 Other: Voiding Method Toilet Toilet # Voids 3 - Labs CBC & Chem 7: 02/03/24 20:55 02/03/24 20:55
[2024-02-05] MEDS: ISOSORBIDE MONONITRATE ER 60 MG TAB.ER.24H PO SCH (12:26)
[2024-02-06 10:23] VITALS: BP 133/84; PULSE 58; RESP 16; TEMP 97.8
--- NOTE | 2024-02-06 14:34 | P.PN ---
Subjective Progress Note Date: 02/06/24 Principal diagnosis: The patient is a very pleasant 38-year-old gentleman with a past medical history significant for a severe case of coronary vasospasm as well as history of PFO status post percutaneous closure and also overweight and borderline diabetes. He presented to the hospital with chest discomfort and he was ruled out for acute coronary event. He underwent an echo which revealed impaired LV systolic function with EF around 40%. A February 06, 2024 The patient was seen and evaluated this morning. Currently he is asymptomatic. The echo showed an EF around 40%. I am afraid of starting the patient on any medications for the cardiomyopathy which could be inducing any coronary vasospasm. Currently the spasm has been under control on the current dose of calcium channel kaitlynn along with oral nitrates. The patient would like to go home. I am going to perform coronary CTA to rule out any progression in the coronary artery disease. I discussed the option of staying 1 more night or discharging home the patient would like to go home because he stated that he lives very close to the hospital. Currently he is asymptomatic with no pain in the chest and no shortness of breath and no dizziness or lightheadedness and no feeling of heart racing or fluttering and no presyncope or syncope The examination revealed regular rhythm with clear breathing sounds bilaterally and no edema was noted and no lower extremities was noted as well Assessment Chest discomfort which has resolved History of coronary vasospasm Newly diagnosis cardiomyopathy Borderline diabetes Overweight History of PFO status post percutaneous closure Plan Acute coronary event was ruled out Obtain coronary CTA Follow-up with the patient Objective - Vital Signs Vital signs: Vital Signs Temp 97.8 F 02/06/24 07:00 Pulse 58 L 02/06/24 07:00 Resp 16 02/06/24 07:00 BP 133/84 02/06/24 07:00 Pulse Ox 97 02/06/24 07:00 FiO2 Intake & Output 02/05/24 02/06/24 02/06/24 18:59 06:59 18:59 Intake Total 118 240 Balance 118 240 Intake: Oral 118 240 Other: Voiding Method Toilet # Voids 2 1 - Labs CBC & Chem 7: 02/03/24 20:55 02/03/24 20:55
--- NOTE | 2024-02-06 14:44 | P.DS ---
Providers Date of admission: 02/04/24 00:41 Attending physician: Prema Castanon MD Consults: 02/04/24 00:39 Consult Physician Urgent Consulting Provider: Ulices Burnette Consult Reason/Comments: chest pain Do you want consulting provider notified?: Yes, Notify in am Primary care physician: Pedro Luis Medina [facility] Hospital Course: Hospital course 38 year old M with PMH of coronary artery vasospasm presents to the ED for chest pain. Cardiac cath done on 03/12/23 showed vasospasm of the mid LAD with spasm up to about 99.9%. In the ED he underwent extensive evaluation. BP 144/93, HR 72, RR 18, T 98.4F, 95% on RA. CBC, Coag panel, CMP was done significant for glucose 224, ALT 66. D-Dimer 0.24. Mag 1.7. Troponin < 0.012 x 3 with EKG showing sinus rhythm with no ST wave changes. Patient was started on a nitroglycerine drip and admitted for Cardiology evaluation. Cardiology consulted, Echo performed showed EF 40% with hypokinetic apex and septum. Patient at the time of discharge patient denied any chest pain. He states that he walked in the hallways and did not have any chest pain. Cardiology said patient is stable for discharge and can follow-up outpatient to be scheduled for a coronary CT scan. Patient will continue his Cardizem and Imdur at discharge. 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 Psych - Calm and cooperative Discharge diagnosis Chest pain: ACS ruled out Newly diagnosed cardiomyopathy History of PFO s/p closure Hypertension Dyslipidemia Prediabetes Patient Condition at Discharge: Stable Plan - Discharge Summary New Discharge Prescriptions: Continue Aspirin EC [Ecotrin Low Dose] 81 mg PO DAILY Atorvastatin [Lipitor] 40 mg PO HS #30 tab Isosorbide Mononitrate [Imdur] 120 mg PO DAILY Arginine [l-Arginine] 500 mg PO DAILY Marion-3 Fatty Acids [Marion-3] 1 cap PO BID dilTIAZem HCL [dilTIAZem HCL 24Hr ER (CD)] 240 mg PO DAILY Cholecalciferol (Vitamin D3) [Decara (50,000 Iu)] 1,250 mcg PO WEEKLY busPIRone HCl [Buspar] 5 mg PO BID Magnesium 250 mg PO HS Famotidine [Pepcid] 20 mg PO BID Discontinued Nitroglycerin Sl Tabs [Nitrostat] 0.4 mg SUBLINGUAL Q5M PRN #15 tab PRN Reason: Chest Pain Discharge Medication List Aspirin EC [Ecotrin Low Dose] 81 mg PO DAILY 05/14/20 [History] Marion-3 Fatty Acids [Marion-3] 1 cap PO BID 02/26/23 [History] Atorvastatin [Lipitor] 40 mg PO HS #30 tab 03/18/23 [Rx] Arginine [l-Arginine] 500 mg PO DAILY 02/04/24 [History] Cholecalciferol (Vitamin D3) [Decara (50,000 Iu)] 1,250 mcg PO WEEKLY 02/04/24 [History] Famotidine [Pepcid] 20 mg PO BID 02/04/24 [History] Isosorbide Mononitrate [Imdur] 120 mg PO DAILY 02/04/24 [History] Magnesium 250 mg PO HS 02/04/24 [History] busPIRone HCl [Buspar] 5 mg PO BID 02/04/24 [History] dilTIAZem HCL [dilTIAZem HCL 24Hr ER (CD)] 240 mg PO DAILY 02/04/24 [History] Follow up Appointment(s)/Referral(s): Pedro Luis Medina MD [Primary Care Provider] - 1-2 days Ulices Burnette MD [STAFF PHYSICIAN] - 1 Week Discharge Disposition: HOME SELF-CARE
== END 2024-02-06 15:35 | disposition home or self-care (01) ==
LOC: EC 20:36 → 6NMEDSUR 02-04 00:41
PROVIDERS: ADMIT Internal Medicine; ATTEND Internal Medicine
DX: R07.89 Other chest pain (principal); I42.9 Cardiomyopathy, unspecified; I10 Essential (primary) hypertension; I20.1 Angina pectoris with documented spasm; E78.5 Hyperlipidemia, unspecified; R73.03 Prediabetes; I25.2 Old myocardial infarction; E66.3 Overweight; Z68.36 Body mass index [BMI] 36.0-36.9, adult; Z79.82 Long term (current) use of aspirin; Z79.899 Other long term (current) drug therapy; Z79.02 Long term (current) use of antithrombotics/antiplatelets; Z91.013 Allergy to seafood; Z87.74 Personal history of (corrected) congenital malformations of heart and circulatory system; Z86.79 Personal history of other diseases of the circulatory system
CPT/HCPCS: 96372 ×3; 96365; 96366; 99285; 36415; 93005; 85379; 80053; 83735; 84484 ×2; 85025; 85610; 85730; 71046; G0378 ×3; C8929; J1650 ×3; J2305; 93306